=== PATIENT | female | born 1935 | race Caucasian/White ===

== ENCOUNTER 2016-11-19 08:14 | Outpatient (CLI) | payer BC ==
[2016-11-19 13:14] LABS: BASOPHILS # (AUTO) 0.1 10^3/uL (0.0-0.1); EOSINOPHILS % (AUTO) 0.4 %; HCT - HEMATOCRIT 44.1 % (37.0-47.0); HGB - HEMOGLOBIN 14.8 g/dL (12.0-16.0); LYMPHOCYTES # (AUTO) 0.9 10^3/uL (1.5-3.5); MEAN CORPUSCULAR HEMOGLOBIN 31.6 pg (27.0-31.0); MEAN CORPUSCULAR HGB CONC 33.5 g/dL (32.0-36.0); MEAN CORPUSCULAR VOLUME 94.2 fL (81.0-99.0); MEAN PLATELET VOLUME 10.4 fL (7.9-10.8); MONOCYTES # (AUTO) 0.4 10^3/uL (0.0-1.0); MONOCYTES % (AUTO) 7.4 %; NEUTROPHILS # (AUTO) 4.3 10^3/uL (1.5-6.6); NEUTROPHILS % (AUTO) 75.2 %; NUCLEATED RED BLOOD CELLS AUTO 0.3 /100WBC; RED BLOOD COUNT 4.68 10^6/uL (4.20-5.40); RED CELL DISTRIBUTION WIDTH 13.8 % (12.0-15.0); UNCORRECTED WHITE BLOOD COUNT 5.7 x10^3/uL; WHITE BLOOD COUNT 5.7 x10^3/uL (4.8-10.8)
[2016-11-19 13:27] LABS: ALBUMIN/GLOBULIN RATIO 1.5 (1.0-2.2); BILIRUBIN,TOTAL 0.7 mg/dL (0.2-1.0); BUN - BLOOD UREA NITROGEN 11 mg/dL (6-20); CALCIUM 9.8 mg/dL (8.5-10.3); CARBON DIOXIDE - CO2 30 mmol/L (21-32); CHLORIDE 94 mmol/L (101-111); CHOL/HDL RATIO 2.3 (<4.4); CHOLESTEROL 123 mg/dL; CREATININE 0.6 mg/dL (0.4-1.0); GFR - MDRD 95 (>89); GLUCOSE 92 mg/dL (70-100); HDL CHOLESTEROL 54 mg/dL; LDL/HDL RATIO 1.1 (<4.4); POTASSIUM 3.4 mmol/L (3.5-5.0); SODIUM 133 mmol/L (135-145); TOTAL PROTEIN 7.3 g/dL (6.7-8.2); TRIGLYCERIDES 45 mg/dL; VLDL CHOLESTEROL 9 mg/dL
== END 2016-11-19 08:15 | disposition home or self-care (01) ==
LOC: LAB.WCP 08:14
PROVIDERS: ATTEND Physician Assistant Medical
DX: E78.5 Hyperlipidemia, unspecified (principal); I48.91 Unspecified atrial fibrillation; E03.9 Hypothyroidism, unspecified
CPT/HCPCS: 36415; 80053; 80061; 84443; 85025

== ENCOUNTER 2016-11-20 13:26 | Outpatient (CLI) | payer BC ==
--- NOTE | 2016-11-25 17:28 | Mammography Report ---
DIGITAL SCREENING MAMMOGRAM: 11/20/2016 CLINICAL INDICATION: An 81-year-old nulliparous patient for screening. COMPARISON: 05/2015, 04/2014, 12/2010, 11/2009 TECHNIQUE: Routine CC and MLO projections were obtained of the breasts as well as bilateral laterall y exaggerated craniocaudal views. FINDINGS: The breasts again demonstrate heterogeneously dense fibroglandular parenchyma bilaterally. Coarse and punctate, typically benign calcifications are present. No suspicious masses, clustered microcalcifications, or regions of architectural distortion are identified. IMPRESSION: BENIGN FINDINGS. RECOMMENDATION: Routine annual screening unless otherwise clinically indicated. BIRADS CATEGORY 2 - BENIGN FINDINGS. STANDARD QUALIFYING STATEMENTS 1. This examination was reviewed with the aid of Computer-Aided Detection (CAD). 2. A negative or benign imaging report should not delay biopsy if clinically suspicious findings are present. Consider surgical consultation if warranted. More than 5% of cancers are not identified by i maging. 3. Dense breasts may obscure an underlying neoplasm. JOB #: [id number] EXT JOB #:[id number]
== END 2016-11-20 13:27 | disposition home or self-care (01) ==
LOC: DI.N 13:26
PROVIDERS: ATTEND Physician Assistant Medical
DX: Z12.31 Encounter for screening mammogram for malignant neoplasm of breast (principal)
CPT/HCPCS: 77067

== ENCOUNTER 2017-11-19 08:00 | Outpatient (CLI) | payer SELFPAY ==
[2017-11-19 13:22] LABS: BASOPHILS % (AUTO) 0.9 %; EOSINOPHILS % (AUTO) 1.6 %; HGB - HEMOGLOBIN 14.9 g/dL (12.0-16.0); LYMPHOCYTES # (AUTO) 1.1 10^3/uL (1.5-3.5); LYMPHOCYTES % (AUTO) 22.4 %; MEAN CORPUSCULAR HEMOGLOBIN 32.1 pg (27.0-31.0); MEAN CORPUSCULAR HGB CONC 34.4 g/dL (32.0-36.0); MEAN CORPUSCULAR VOLUME 93.3 fL (81.0-99.0); MEAN PLATELET VOLUME 10.8 fL (7.9-10.8); MONOCYTES # (AUTO) 0.4 10^3/uL (0.0-1.0); MONOCYTES % (AUTO) 7.6 %; NEUTROPHILS # (AUTO) 3.3 10^3/uL (1.5-6.6); NEUTROPHILS % (AUTO) 67.5 %; PLT - PLATELET COUNT 172 10^3/uL (130-450); RED BLOOD COUNT 4.63 10^6/uL (4.20-5.40); RED CELL DISTRIBUTION WIDTH 14.3 % (12.0-15.0); WHITE BLOOD COUNT 4.9 x10^3/uL (4.8-10.8)
[2017-11-19 13:23] LABS: EOSINOPHILS # (AUTO) 0.1 10^3/uL (0.0-0.7)
[2017-11-19 13:31] LABS: ALBUMIN 4.4 g/dL (3.2-5.5); ALBUMIN/GLOBULIN RATIO 1.4 (1.0-2.2); ALKALINE PHOSPHATASE 66 IU/L (42-121); ALT ALANINE AMINOTRANSFERASE 16 IU/L (10-60); AST ASPARTATE AMINOTRANSFERASE 23 IU/L (10-42); BILIRUBIN,TOTAL 1.5 mg/dL (0.2-1.0); BUN - BLOOD UREA NITROGEN 10 mg/dL (6-20); CALCIUM 10.1 mg/dL (8.5-10.3); CARBON DIOXIDE - CO2 33 mmol/L (21-32); CHLORIDE 91 mmol/L (101-111); CHOL/HDL RATIO 1.9 (<4.4); CHOLESTEROL 126 mg/dL; CREATININE 0.6 mg/dL (0.4-1.0); GFR - MDRD 95 (>89); GLUCOSE 97 mg/dL (70-100); HDL CHOLESTEROL 65 mg/dL; LDL CHOLESTEROL,CALCULATED 52 mg/dL; LDL/HDL RATIO 0.8 (<4.4); SODIUM 132 mmol/L (135-145); TOTAL PROTEIN 7.6 g/dL (6.7-8.2); VLDL CHOLESTEROL 9 mg/dL
[2017-11-19 13:33] LABS: PLATELET MORPHOLOGY RARE GIANT PLATELETS (NORMAL)
== END 2017-11-19 08:01 | disposition home or self-care (01) ==
LOC: LAB.WCP 08:00
PROVIDERS: ATTEND Physician Assistant Medical
DX: I10 Essential (primary) hypertension (principal); E78.5 Hyperlipidemia, unspecified; E03.9 Hypothyroidism, unspecified
CPT/HCPCS: 36415; 80053; 80061; 83721; 84443; 85025

== ENCOUNTER 2017-11-26 14:30 | Outpatient (CLI) | payer OTHER | END 2017-11-26 14:31 | disposition home or self-care (01) | LOC: LAB.R 14:30 | PROVIDERS: ATTEND Physician Assistant Medical | DX: N39.41 Urge incontinence (principal) | CPT/HCPCS: 87086 ==

== ENCOUNTER 2017-12-02 14:27 | Outpatient (CLI) | payer OTHER ==
--- NOTE | 2017-12-03 17:24 | Mammography Report ---
Procedure Date: 12/02/2017 Accession Number: [id number] / [id number] Procedure: MGN - Screening Mammo Dig Bilat CPT Code: FULL RESULT: EXAM: Screening Mammo Dig Bilat DATE: 12/02/2017 2:56 PM CLINICAL HISTORY: 82 year-old nulliparous female presents for screening mammogram. TECHNIQUE: Bilateral CC and MLO views were obtained. COMPARISON: 11/20/2016, 05/29/2015, 05/02/2014, 01/01/2011. FINDINGS: The breasts demonstrate extremely dense parenchyma bilaterally, limiting the sensitivity of mammography. Coarse typically benign calcifications and typically benign vascular calcifications are seen bilaterally. No suspicious masses, clustered microcalcifications, or regions of architectural distortion are identified. IMPRESSION: Benign findings RECOMMENDATION: Routine annual screening unless otherwise clinically indicated. BIRADS CATEGORY 2: Benign findings STANDARD QUALIFYING STATEMENTS: 1. This examination was reviewed with the aid of Computer-Aided Detection (CAD). 2. A negative or benign imaging report should not delay biopsy if clinically suspicious findings are present. Consider surgical consultation if warrented. More than 5% of cancers are not identified by imaging. 3. Dense breasts may obscure an underlying neoplasm.
== END 2017-12-02 14:28 | disposition home or self-care (01) ==
LOC: DI.N 14:27
PROVIDERS: ATTEND Radiology Diagnostic Radiology
DX: Z12.31 Encounter for screening mammogram for malignant neoplasm of breast (principal)
CPT/HCPCS: 77067

== ENCOUNTER 2018-06-09 09:31 | Outpatient (CLI) | payer OTHER ==
--- NOTE | 2018-06-09 13:25 | XRAY Report ---
Reason: ADB DISCOMFORT Procedure Date: 06/09/2018 Accession Number: [id number] / [id number] Procedure: WCP - Abdomen 1 View X-Ray CPT Code: 77753 FULL RESULT: EXAM: ABDOMEN RADIOGRAPHY EXAM DATE: 06/09/2018 09:58 AM. CLINICAL HISTORY: Abdominal discomfort. COMPARISON: None. TECHNIQUE: 1 view. FINDINGS: Bowel Gas Pattern: Within normal limits. No dilated loops. Other: Calcifications projecting over the pelvis are felt to likely represent fibroids. Mild to moderate thoracolumbar scoliosis with degenerative changes. IMPRESSION: No bowel obstruction or extraintestinal gas detected. RADIA
== END 2018-06-09 09:32 | disposition home or self-care (01) ==
LOC: DI.WCP 09:31
PROVIDERS: ATTEND Physician Assistant
DX: R10.9 Unspecified abdominal pain (principal)
CPT/HCPCS: 74018

== ENCOUNTER 2018-06-10 08:00 | Outpatient (CLI) | payer OTHER | END 2018-06-10 23:59 | disposition home or self-care (01) | LOC: LAB.WCP 08:00 | PROVIDERS: ATTEND Physician Assistant | DX: R19.7 Diarrhea, unspecified (principal) | CPT/HCPCS: 81599; 83630; 87045; 87046; 87177; 87209; 87329; 87493 ==

== ENCOUNTER 2018-12-24 10:12 | Outpatient (CLI) | payer OTHER ==
--- NOTE | 2018-12-27 15:53 | Mammography Report ---
Reason: SCREENING MAMMO Procedure Date: 12/24/2018 Accession Number: [id number] / [id number] Procedure: MGN - Screening Mammo Dig Bilat CPT Code: FULL RESULT: EXAM: Screening Mammo Dig Bilat DATE: 12/24/2018 10:36 AM CLINICAL HISTORY: Routine screening. Nulliparous patient. TECHNIQUE: (B) - Bilateral CC and MLO views were obtained. COMPARISON: 12/02/2017, 11/20/2016, 05/29/2015 and 05/02/2014 PARENCHYMAL PATTERN: (VD) - The breasts demonstrate extremely dense parenchyma bilaterally, limiting the sensitivity of mammography. FINDINGS: No significant interval change. There are no suspicious masses, calcifications, or areas of distortion. Scattered benign-appearing calcifications are stable. IMPRESSION: Negative examination. BI-RADS category 1. RECOMMENDATION: (ANNUAL) - Recommend routine annual screening mammography. BI-RADS CATEGORY: (1) - Negative. STANDARD QUALIFYING STATEMENTS: 1. This examination was not reviewed with the aid of Computer-Aided Detection (CAD). 2. A negative or benign imaging report should not preclude biopsy if clinically suspicious findings are present. 3. Dense breasts may obscure an underlying neoplasm. 4. This examination was reviewed without the aid of 3D breast imaging (tomosynthesis).
== END 2018-12-24 10:13 | disposition home or self-care (01) ==
LOC: DI.N 10:12
DX: Z12.31 Encounter for screening mammogram for malignant neoplasm of breast (principal)
CPT/HCPCS: 77067

== ENCOUNTER 2019-10-02 06:02 | Outpatient (CLI) | payer OTHER | END 2019-10-02 06:03 | disposition critical access hospital (66) | LOC: EMS 06:02 | PROVIDERS: ATTEND Surgery | DX: R19.5 Other fecal abnormalities (principal); R10.9 Unspecified abdominal pain; R11.0 Nausea | CPT/HCPCS: A0425; A0427 ==

== ENCOUNTER 2019-10-02 06:19 | Inpatient (IN) | payer OTHER ==
[2019-10-02 07:08] LABS: BASOPHILS % (AUTO) 0.4 %; EOSINOPHILS # (AUTO) 0.1 10^3/uL (0.0-0.7); EOSINOPHILS % (AUTO) 0.8 %; HGB - HEMOGLOBIN 13.5 g/dL (12.0-16.0); LYMPHOCYTES # (AUTO) 0.9 10^3/uL (1.5-3.5); LYMPHOCYTES % (AUTO) 12.1 %; MEAN CORPUSCULAR HGB CONC 33.3 g/dL (32.0-36.0); MEAN CORPUSCULAR VOLUME 93.1 fL (81.0-99.0); MEAN PLATELET VOLUME 11.1 fL (7.9-10.8); MONOCYTES # (AUTO) 0.5 10^3/uL (0.0-1.0); MONOCYTES % (AUTO) 6.3 %; NEUTROPHILS # (AUTO) 5.9 10^3/uL (1.5-6.6); NEUTROPHILS % (AUTO) 80.1 %; PLT - PLATELET COUNT 189 10^3/uL (130-450); RED BLOOD COUNT 4.36 10^6/uL (4.20-5.40); RED CELL DISTRIBUTION WIDTH 13.8 % (12.0-15.0); WHITE BLOOD COUNT 7.3 x10^3/uL (4.8-10.8)
--- NOTE | 2019-10-02 07:10 | ED Physician Documentation ---
PD HPI GI BLEED - Stated complaint Stated Complaint: BLOODY STOOL - Chief complaint Chief Complaint: Abd Pain - History obtained from History obtained from: Patient - History of Present Illness Timing - onset: How many hours ago (1-2), Today Timing - details: Abrupt onset (She felt a sudden urge for bowel movement earlier this morning got up and noted red blood in the toilet. There was some stool formed initially. She had another movement of just blood shortly after. She has a feeling of general weakness but no lightheadedness and no dyspnea. She said she felt a little weak yesterday but otherwise no abdominal pain nausea or vomiting. She has some mild nausea this morning. No history of similar episodes. No history of diverticulitis. She is not on any blood thinners) Associated symptoms: BRBPR, Maroon stool, Loss of appetite. No: Vomiting, Coffee ground emesis, Black/tarry stool, Constipation, Abdominal pain, Chest pain, Near syncope / syncope Contributing factors: No: Sick contact, Recent antibiotics, Anticoagulated Worsened by: No: Moving, Breathing, Palpation Similar symptoms before: Has not had sx before Recently seen: Not recently seen Review of Systems Constitutional: denies: Fever, Chills, Myalgias Nose: denies: Rhinorrhea / runny nose, Congestion Throat: denies: Sore throat Cardiac: denies: Chest pain / pressure Respiratory: denies: Cough GI: reports: Nausea, Bloody / black stool. denies: Abdominal Pain, Abdominal Swelling, Vomiting, Hematemesis : denies: Dysuria, Frequency Neurologic: reports: Generalized weakness. denies: Focal weakness, Numbness, Near syncope PD PAST MEDICAL HISTORY - Past Medical History Respiratory: None Neuro: None Endocrine/Autoimmune: None - Present Medications Home Medications: Ambulatory Orders Medication Instructions Recorded Confirmed Amlodipine Besylate 5 mg PO DAILY 11/17/15 10/02/19 Aspirin 325 mg PO DAILY 11/17/15 10/02/19 Calcium Carbonate [Calcium] 600 mg PO DAILY 10/02/19 10/02/19 Donepezil [Aricept] 5 mg PO DAILY 10/02/19 10/02/19 Lisinopril/Hydrochlorothiazide 2 each PO DAILY 10/02/19 10/02/19 [Lisinopril-Hctz 20-25 mg Tab] Oxybutynin [Ditropan] 5 mg PO DAILY 10/02/19 10/02/19 Pravastatin [Pravachol] 40 mg PO DAILY 10/02/19 10/02/19 - Allergies Allergies/Adverse Reactions: Allergies Allergy/AdvReac Type Severity Reaction Status Date / Time Sulfa (Sulfonamide AdvReac Unknown Verified 11/17/15 16:42 Antibiotics) - Social History Does the pt smoke?: No Smoking Status: Never smoker PD ED PE NORMAL - Vitals Vital signs reviewed: Yes - General General: Alert and oriented X 3, Well developed/nourished, Other (mild pallor) - HEENT HEENT: Moist mucous membranes, Pharynx benign - Neck Neck: Supple, no meningeal sign, No adenopathy - Cardiac Cardiac: RRR, No murmur - Respiratory Respiratory: Clear bilaterally - Abdomen Abdomen: Normal bowel sounds, Soft, Non distended, No organomegaly, Other (Mild tenderness in the lower abdomen both left and right without any percussion rebound nor referred tenderness. No guarding is noted.) - Rectal Rectal: Deferred (She had lower rectal output of maroon to red blood without clots here in the emergency department so rectal was not needed) - Back Back: No CVA TTP - Derm Derm: Warm and dry - Extremities Extremities: Normal ROM s pain, No edema - Neuro Neuro: Alert and oriented X 3, No motor deficit, Normal speech Results - Vitals Vitals: Vital Signs - 24 hr 10/02/19 06:10 Temperature 36.5 C Heart Rate 64 Respiratory 16 Rate Blood Pressure 169/78 H O2 Saturation 94 Oxygen O2 Source Room air - Labs Labs: Laboratory Tests 10/02/19 10/02/19 10/02/19 06:55 06:55 06:55 WBC 7.3 RBC 4.36 Hgb 13.5 Hct 40.6 MCV 93.1 MCH 31.0 MCHC 33.3 RDW 13.8 Plt Count 189 MPV 11.1 H Neut # (Auto) 5.9 Lymph # (Auto) 0.9 L [place] # (Auto) 0.5 Eos # (Auto) 0.1 Baso # (Auto) 0.0 Absolute Nucleated RBC 0.00 Nucleated RBC % 0.0 PT 13.0 H INR 1.1 APTT 28.5 Sodium 132 L Potassium 2.7 L Chloride 90 L Carbon Dioxide 29 Anion Gap 13.0 BUN 13 Creatinine 0.6 Estimated GFR (MDRD) 95 Glucose 128 H Calcium 9.5 Total Bilirubin 0.9 AST 18 ALT 13 Alkaline Phosphatase 61 Total Protein 6.9 Albumin 4.2 Globulin 2.7 Albumin/Globulin Ratio 1.6 Lipase 27 - Rads (name of study) abd/pelvic CT Radiology: Prelim report reviewed (Diverticula are noted but no obvious diverticulitis or other acute process), See rad report PD MEDICAL DECISION MAKING - ED course Complexity details: reviewed results, re-evaluated patient (Repeated episodes of small-volume rectal bleeding here in the ER. Vitals remained stable.), d/w patient Departure - Departure Disposition: 66 [facility] DC/Xfer Clinical Impression: Acute lower GI bleeding Condition: Stable
[2019-10-02 07:18] LABS: INR 1.1 (0.8-1.2)
[2019-10-02] MEDS ORDERED: SODIUM CHLORIDE 0.9% 1,000 ML IV STA (07:25)
[2019-10-02 07:26] LABS: PARTIAL THROMBOPLASTIN TIME 28.5 secs (24.9-33.3)
[2019-10-02] MEDS ORDERED: FAMOTIDINE 20 MG/2 ML SYRINGE IVP STA (07:26)
[2019-10-02 07:36] LABS: ALBUMIN 4.2 g/dL (3.2-5.5); ALBUMIN/GLOBULIN RATIO 1.6 (1.0-2.2); BILIRUBIN,TOTAL 0.9 mg/dL (0.2-1.0); CALCIUM 9.5 mg/dL (8.5-10.3); CREATININE 0.6 mg/dL (0.4-1.0); TOTAL PROTEIN 6.9 g/dL (6.7-8.2)
[2019-10-02] MEDS ORDERED: IOVERSOL 320 100 ML VIAL IVP ONE ×2 (07:54→08:43)
[2019-10-02] MEDS ORDERED: POTASSIUM CHLOR 10 MEQ/100 ML 10 MEQ/100 ML BAG IV ONE (07:59)
--- NOTE | 2019-10-02 09:01 | CT Report ---
PROCEDURE: Abdomen/Pelvis W INDICATIONS: GI bleeding CONTRAST: IV CONTRAST: Optiray 320 ml: 100 PO CONTRAST: *NO PO CONTRAST TECHNIQUE: After the administration of oral and intravenous contrast, 5 mm thick sections acquired from the diap hragms to the symphysis. 5 mm thick coronal and sagittal reformats were acquired. For radiation dos e reduction, the following was used: automated exposure control, adjustment of mA and/or kV accordin g to patient size. COMPARISON: None. FINDINGS: Image quality: Excellent. ABDOMEN: Lung bases: Within the right lower lobe medially, there is a spiculated nodule seen that measures up to 12 mm, as on series 4 image 8. Heart size is mildly enlarged. Solid organs: Liver and spleen are normal in size and enhancement. Diffuse fatty liver infiltration can be seen. Gallbladder demonstrates gallstones within its lumen. Biliary system is mildly enlarg ed, with the common bile duct measuring 9 mm.. Pancreas enhances normally. No adrenal nodules. Kid neys demonstrate normal size and enhancement, without hydronephrosis. Peritoneum and bowel: Bowel loops demonstrate normal wall thickness and caliber. No free fluid or a ir. Prominent diverticulosis is seen. No findings of acute diverticulitis are detected. Nodes and vessels: Enlarged retroperitoneal lymph nodes are seen. The largest are seen within the lef t para-aortic region, with the largest solitary lymph node measuring 2.5 x 1.3 cm. Borderline promine nt mesenteric lymph nodes are also seen. Aorta and inferior vena cava are normal in size. Miscellaneous: No ventral hernias. PELVIS: Genitourinary: Bladder wall thickness is normal. Calcified uterine fibroids are seen. Miscellaneous: No inguinal hernias or adenopathy. Bones: No suspicious bony lesions. There is moderate levoconvex scoliosis. There is chronic anterio r wedge deformity seen at T12. Degenerative changes are seen throughout, which are most prominent inv olving the lumbar spine. IMPRESSION: A cause of lower GI bleeding is not identified. However, prominent diverticular formatio n is noted. Spiculated right lower lobe nodule. Neoplasm is suspected. For further evaluation, a dedicated PET CT is recommended. Enlarged retroperitoneal lymph nodes and borderline mesenteric lymph nodes are seen. Neoplasm is most likely. Prominent common bile duct measuring 9 mm. A cause of obstruction is not seen on this study. If clini florencia appropriate, please consider a dedicated MRCP for further evaluation (assuming that there is no contraindication). Incidental note is made of: Gallstones Fatty liver infiltration Calcified uterine fibroids Levoconvex scoliosis Remote T12 anterior wedge deformity Lumbar spine degenerative change Reviewed by: Clarence Do MD on 10/02/2019 8:00 AM PENG Approved by: Clarence Do MD on 10/02/2019 8:00 AM PENG Station ID: [id number]
[2019-10-02] MEDS ORDERED: ACETAMINOPHEN 325 MG TABLET PO PRN (11:05)
--- NOTE | 2019-10-02 11:30 | PHARMACY PROGRESS NOTE ---
- Best Possible Medication History Admit Date and Time: 10/02/1989 Processed by: Pharmacy Medication History completed: Yes Secondary Source(s): Physician records, Pharmacy records, Insurance records As the person ultimately responsible for medication therapy, providers are able to order a medication from an existing home medication list in [facility] via the "Reconcile Routine" prior to Confirmation of that medication by family support coordinator. Such practice is discouraged except when the physician, in their clinical judgment, deems that a medical need exists for a medication without regard to previous use.
--- NOTE | 2019-10-02 12:19 | CONSULTATION NOTE ---
Referring Provider Name of Referring Provider:: ED History of Present Illness - Admitted From Admitted From:: ED - History Obtained From Records Reviewed: ED History obtained from: ED and patient Exam Limitations: none - History of Present Illness HPI Comment/Other: 84 year old lady admitted with lower gi bleed. Ct scan has been obtained. she is stable, no distress, ambulates without difficulty, no pain History - Past Medical History Cardiovascular: reports: Hypertension, High cholesterol, Coronary artery disease Respiratory: reports: None Neuro: reports: None Endocrine/Autoimmune: reports: None GI: reports: GI bleed, Colon polyps, Diverticulitis : reports: None HEENT: reports: Chronic vision loss Psych: reports: None Musculoskeletal: reports: Osteoporosis Derm: reports: None MRSA Hx?: No - Past Surgical History General: reports: Appendectomy Ortho: reports: Arthroscopic surgery HEENT: reports: Tonsil/Adenoidectomy Meds/Allgy - Home Medications Home Medications: Ambulatory Orders Medication Instructions Recorded Confirmed Amlodipine Besylate 5 mg PO DAILY 11/17/15 10/02/19 Aspirin EC [Ecotrin] 325 mg PO DAILY 10/02/19 10/02/19 Calcium Carbonate [Calcium] 600 mg PO DAILY 10/02/19 10/02/19 Donepezil [Aricept] 5 mg PO QPM 10/02/19 10/02/19 Lisinopril/Hydrochlorothiazide 2 each PO DAILY 10/02/19 10/02/19 [Lisinopril-Hctz 20-12.5 mg Tab] Oxybutynin [Ditropan] 5 mg PO QPM 10/02/19 10/02/19 Pravastatin [Pravachol] 40 mg PO DAILY 10/02/19 10/02/19 - Allergies Allergies/Adverse Reactions: Allergies Allergy/AdvReac Type Severity Reaction Status Date / Time Sulfa (Sulfonamide AdvReac Unknown Verified 11/17/15 16:42 Antibiotics) Review of Systems - Constitutional Constitutional: reports: Fatigue (she states she is tired. No other complaints.) Exam - Vital Signs Vital Signs: Vital Signs x48h Temp Pulse Resp BP Pulse Ox 10/02/19 08:32 66 16 170/74 H 96 10/02/19 06:10 36.5 C 64 16 169/78 H 94 - Physical Exam General Appearance: positive: No acute distress, Alert Eyes Bilateral: positive: Normal inspection, PERRL, EOMI ENT: positive: No signs of dehydration Neck: positive: No JVD Respiratory: positive: No respiratory distress Abdomen: positive: Non-tender, Other (no significant distension. abdomen is very soft and non tender to deep palpation. no peritoneal signs. transverse scar right lower abdomen consistent with past appendectomy) Extremities: positive: No pedal edema Neurologic/Psychiatric: positive: Other (history of dementia ; however, she is alert and answers questions appropriately. unknown if she has had a colonoscopy) Conclusion and Plan - Lab Results Laboratory Results 10/02/19 06:55: Sodium 132 L, Potassium 2.7 L, Chloride 90 L, Carbon Dioxide 29, Anion Gap 13.0, BUN 13, Creatinine 0.6, Estimated GFR (MDRD) 95, Glucose 128 H, Calcium 9.5, Total Bilirubin 0.9, AST 18, ALT 13, Alkaline Phosphatase 61, Total Protein 6.9, Albumin 4.2, Globulin 2.7, Albumin/Globulin Ratio 1.6, Lipase 27 10/02/19 06:55: PT 13.0 H, INR 1.1, APTT 28.5 10/02/19 06:55: WBC 7.3, RBC 4.36, Hgb 13.5, Hct 40.6, MCV 93.1, MCH 31.0, MCHC 33.3, RDW 13.8, Plt Count 189, MPV 11.1 H, Neut # (Auto) 5.9, Lymph # (Auto) 0.9 L, [place] # (Auto) 0.5, Eos # (Auto) 0.1, Baso # (Auto) 0.0, Absolute Nucleated RBC 0.00, Nucleated RBC % 0.0 - Diagnostic Imaging Results Diagnostic Imaging Results: positive: Final report reviewed, Read independently (she has had a ct concerning for right lower lobe lung cancer. She has enlarged retroperitoneal adenopathy concerning for neoplasia. she has significant diverticulosis descending colon. no inflammation on my read she may have a partial sigmoid volvulus with no inflammation and minimal distension) - Plan Plan: She is stable. Has no pain. Abdominal exam is essentially normal. minimal to no distension and non tender. Agree with clear liquid diet. Consider sigmoidoscopy if she develops pain or distension. I discussed the plan with medicine. The medicine team will contact her family and clarify wishes ie would she want a colectomy, colostomy, etc. Given she does not appear ill, is stable, no pain, possible lung cancer, passing minimal blood plan observation for now ie no further intervention with scope. If she develops pain, distension, consent obtained for possible colostomy will proceed with sigmoidoscopy or colonoscopy. I would hold on bowel prep for now. If she develops pain, bloating, consent obtained for possible colostomy plan sigmoidoscopy
[2019-10-02] MEDS: FAMOTIDINE 20 MG TABLET PO SCH ×2 (12:27→20:14)
--- NOTE | 2019-10-02 13:38 | ADVANCE CARE PLANNING NOTE ---
Advance Care Planning - Planning Encounter Date: 10/02/19 Time: 11:20 Purpose: To establish Code Status and medical care wishes. Parties in Attendance: I spoke to the patient in her room. I then spoke to her pkzkch-ne-fyr, Bebe (Parris), at the patient's request, by phone. Decisional Capacity of the Patient: She appears to have good decision-making capacity, she needed to repeat several things to memorize the new diagnoses I gave her, but was able to discuss her old history and prior thought processes regarding CODE STATUS and medical care. She also asked me to confirm if she has documents regarding a POA, living well, or DNR paperwork, with her [id number] Parris, which I did. 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 She lives alone in assisted living facility and her brother and djjnyn-kn-sxc live in the same town. She administers her own medications, has stopped driving several years ago. She is admitted with lower abdominal pain and maroon bloody bowel movements. The work-up reveals that she has diverticuli, and also has a mass in her lungs. Objective/Medical Story: This is an 84-year-old white female with hypertension, dementia, on treatment plus aspirin daily. She was admitted with new onset of lower abdominal pain and lower GI bleeding. The CT abdomen reveals that she has diverticuli but no diverticulosis. The rn medical surgical think she may have a volvulus therefore possibly bleeding from ischemic bowel. The lower chest was also seen on abdominal CT imaging and she has a spiculated lung mass and has many retroperitoneal nodes in the abdomen, both suggestive of malignancy. I told the patient about the diverticulosis, plan for monitoring, liquid diet, and lung tumor findings. When asked about cardiac resuscitation, the patient immediately stated that she did not want to be resuscitated or measures taken to prolong her life. Patient accepted the proposal of having a palliative care consult done regarding newly diagnosed lung tumor. Patient would like to think about what she would want done if there is in fact lung cancer and if she needs aggressive treatment like chemo or radiation therapy. If surgery is needed, the surgeon told me that he would like discussion with family members (in case of her dementia), because of the newly found probable lung cancer with mets. I then spoke to her hoqpfr-gr-hpy Parris, who told me that there is no paperwork for DPOA, a living well or CODE STATUS papers. I told the [id number] about the lower GI bleed and the newly found lung tumor. Parris confirmed that the patient has told them she wants to be a DNR. I explained that a palliative home care companion will start to be involved with the patient case, starting tomorrow. Goals of Care: As above. Plan: A new POLST form will be signed by the patient and myself. DNR status will be ordered in the chart. Palliative care consult will be requested. Code Status: Do Not Attempt Resuscitation Time spent on advance care plannin min
[2019-10-02 14:21] LABS: HGB - HEMOGLOBIN 11.7 g/dL (12.0-16.0)
[2019-10-02 14:32] LABS: MAGNESIUM 1.9 mg/dL (1.7-2.8)
--- NOTE | 2019-10-02 15:34 | HISTORY & PHYSICAL EXAMINATION ---
DATE OF SERVICE: 10/02/2019 Physician: Deanna Mata MD HISTORY OF PRESENT ILLNESS: This is an 84-year-old white female who lives alone in Assisted living, has a history of hypertension and dementia, is on Donepizil, blood pressure medications and aspirin daily. The patient felt weak yesterday and then this morning had nausea, but no vomiting, and when she went to the bathroom she had first a normal bowel movement, followed by bright red blood and maroon blood per rectum. She came to the emergency room for this and in the ER had 2-3 more bowel movements of a cup in volume, of red-maroon stool. The patient had normal blood pressure and normal hemoglobin. She is being placed in Observation to evaluate and manage lower GI bleeding. PAST MEDICAL HISTORY: Hypertension, dementia. ALLERGIES: SULFA. MEDICATIONS: 1. Amlodipine 10 mg daily. 2. Lisinopril/HCTZ 20/12.5 mg daily. 3. Aspirin adult dose daily. 4. Calcium carbonate daily. 5. Pravastatin 40 mg at night. 6. Donepizil 5 mg every night. 7. Ditropan XL 5 mg every night. FAMILY HISTORY: No inherited diseases. SOCIAL HISTORY: The patient lives alone. Her closest relative is a brother and [id number], who live also in town. She is a nonsmoker, drinks no alcohol, no drug abuse history. REVIEW OF SYSTEMS: She denied dizziness or syncope. Denied palpitations or chest pain or dyspnea. This has never happened to her before. There was no vomiting, no coffee-ground emesis. A comprehensive review of systems was performed and the pertinent positives are listed, the rest are negative. PHYSICAL EXAMINATION GENERAL: Elderly white female. She appears fatigued. She is in no distress, supine in bed. VITAL SIGNS: Blood pressure 170/78, heart rate 65 in sinus rhythm, afebrile, room air saturation 95%. HEENT: Shows skin pallor. Oral mucosa is moist. NECK: Supple. CHEST: Clear. HEART: Normal heart sounds. ABDOMEN: Soft, mildly tender in the right and lower left quadrants without guarding or rebound. No masses are palpable. EXTREMITIES: No clubbing, cyanosis, or edema. NEUROLOGIC: Grossly intact. LABORATORY DATA: Sodium 132, potassium 2.7, BUN 13, creatinine 0.6, glucose 128. Normal liver tests and bilirubin. Albumin normal at 4.2. Lipase normal at 27. White blood count 7.3, hemoglobin 13.5 with a normal MCV, and platelet count normal at 189. INR normal at 1.1. No chest x-ray or EKG were done. IMAGING: Abdomen and pelvis CT shows colonic diverticula, but no diverticulitis. Also, significant incidental findings are enlarged retroperitoneal lymph nodes, largest in the left paraaortic region, one being as large as 2.5 x 1.3 cm, and prominent mesenteric lymph nodes and these are suspicious for malignancy. She also has fatty liver infiltration, gallstones with mildly enlarged biliary system. The lung bases were seen, and there was a right lower lobe spiculated nodule that measures 12 mm, which is suspicious for malignancy. Cardiomegaly was also seen. SUMMARY/DIAGNOSES 1. Lower gastrointestinal bleed. 2. Diverticulosis. 3. Hypokalemia. 4. Spiculated lung mass, which is highly suspicious for neoplasm. 5. Cardiomegaly. 6. Lymphadenopathy, retroperitoneal, which is highly suspicious for neoplasm. 7. History of hypertension. 8. Dementia. 9. Fatty liver. 10. Gallstones. PLAN: Place the patient in observation status. Begin a clear liquid diet. Obtain general surgery consultation for a colonoscopy. If she agrees and the procedure is planned, she will need a preop EKG and chest x-ray for being cleared for conscious sedation. Follow her hemoglobin every 8 hours, transfuse if she is symptomatic such as orthostatic or if hemoglobin drops under 7. Correct her potassium and follow these labs every 12 hours. Hold her blood pressure medications currently, restart individually if she becomes hypertensive over a systolic of 170 sustained, but I suspect she will not need such high doses given her GI bleed with a potential drop in blood pressure. Continue with her Donepizil and Oxybutynin. There will need to be discussion about a potential malignancy and options regarding its workup. This will lead to discussions about her wishes for care plan and code status. Stop her daily aspirin. DEEP VENOUS THROMBOSIS PROPHYLAXIS: SCDs. CODE STATUS: FULL CODE. ATTESTATION: The patient is expected to be discharged or transferred to another facility within 96 hours: Yes cc: Lashonda Rudolph PA-C TD: 10/02/2019 11:22 [facility]
[2019-10-02] MEDS: SODIUM CHLORIDE FLUSH 0.9% 10 ML SYRINGE IVP SCH ×2 (16:49→23:51)
[2019-10-02 17:31] LABS: BILIRUBIN,URINE NEGATIVE (NEGATIVE); GLUCOSE, URINE (UA) NEGATIVE (NEGATIVE); KETONES,URINE (UA) TRACE mg/dL (NEGATIVE); LEUKOCYTE ESTERASE, URINE NEGATIVE (NEGATIVE); NITRITE,URINE NEGATIVE (NEGATIVE); OCCULT BLOOD,URINE SMALL (NEGATIVE); PROTEIN,URINE NEGATIVE (NEGATIVE); UROBILINOGEN,URINE 0.2 (NORMAL) E.U./dL (NORMAL)
[2019-10-02 17:33] LABS: CLARITY,URINE CLEAR (CLEAR)
[2019-10-02 17:44] LABS: BACTERIA,URINE None Seen /HPF (None Seen); RBC,URINE 0-5 /HPF (0-5); SQUAMOUS EPITHELIAL CELL,UR NONE SEEN (<= Few)
[2019-10-02] MEDS: OXYBUTYNIN 5MG TABLET PO SCH (20:14)
[2019-10-02] MEDS: CARBOXYMETHYLCELLULOSE OPHTH DROPS EACHEYE PRN (23:50)
[2019-10-03] MEDS: SODIUM CHLORIDE FLUSH 0.9% 10 ML SYRINGE IVP PRN (00:01)
[2019-10-03 05:29] LABS: HGB - HEMOGLOBIN 10.1 g/dL (12.0-16.0)
[2019-10-03 05:40] LABS: CALCIUM 8.6 mg/dL (8.5-10.3); CREATININE 0.4 mg/dL (0.4-1.0)
[2019-10-03] MEDS: CARBOXYMETHYLCELLULOSE OPHTH DROPS EACHEYE PRN (05:41)
[2019-10-03] MEDS: POTASSIUM CHLOR 10 MEQ/100 ML 10 MEQ/100 ML BAG IV SCH ×6 (09:13→20:07)
[2019-10-03] MEDS: SODIUM CHLORIDE FLUSH 0.9% 10 ML SYRINGE IVP SCH ×3 (09:17→23:27)
[2019-10-03] MEDS: FAMOTIDINE 20 MG TABLET PO SCH ×2 (09:17→22:05)
[2019-10-03] MEDS: D5NS W/20 MEQ KCL 1,000 ML IV SCH ×2 (11:08→22:07)
[2019-10-03] MEDS: DONEPEZIL 5 MG TABLET PO SCH (11:09)
--- NOTE | 2019-10-03 11:44 | PROVIDER PROGRESS NOTE ---
Assessment/Plan - Problem List (1) Acute lower GI bleeding Assessment/Plan: She has painless lower GI bleeding but there was an urge to defecate. Surgery saw the patient. There has been discussions with new palliative care consult, Sania Chen NP, the surgeon, the family members and the patient several times and she may need surgery for a possible volvulus. (2) Anemia due to GI blood loss Assessment/Plan: Follow hemoglobin every 8 hours. We will order type and cross of PRBCs Its use if Hgb under 8 with symptoms are under 7 (3) Lung mass Assessment/Plan: This came into play in the discussion with palliative care and the family. A primary GI malignancy may have mets to the lungs as well as a primary lung malignancy. (4) Lymphadenopathy, retroperitoneal Assessment/Plan: Similar to above. (5) Hypokalemia Assessment/Plan: Place with IV K riders. Follow BMP daily (6) Hyponatremia Assessment/Plan: Continue with IV saline hydration. Follow BMP daily (7) Hx of essential hypertension Assessment/Plan: Continue with IV forms of treatment for her blood pressure control. (8) Dementia Assessment/Plan: She was on donezepil before this admission. My impression, that of the palliative care provider and the surgeon is that she makes good decisions on her own yet, memory is slightly lacking. - Current Meds Current Meds: Current Medications Generic Name Dose Route Start Last Admin Trade Name Freq PRN Reason Stop Dose Admin Carboxymethylcellulose 1 drops 10/02/19 23:28 10/03/19 05:41 Refresh 1% Ophth Drops EACHEYE 1 drops PRN PRN Administration Dry Eye Donepezil HCl 5 mg 10/03/19 10:30 10/03/19 11:09 Aricept PO 5 mg DAILY TASHIA Administration Famotidine 20 mg 10/02/19 12:00 10/03/19 09:17 Pepcid PO 20 mg BID TASHIA Administration Potassium Chloride 10 meq in 100 mls @ 100 mls/hr 10/03/19 08:00 10/03/19 11:08 Potassium Chloride IV 10/03/19 13:59 100 mls/hr Q1H TASHIA Administration Potassium Chloride/Dextrose/Sod Cl 1,000 mls @ 83.333 mls/hr 10/03/19 10:00 10/03/19 11:08 IV 83.333 mls/hr .Q12H TASHIA Administration Oxybutynin Chloride 5 mg 10/02/19 21:00 10/02/19 20:14 Ditropan PO 5 mg QPM TASHIA Administration Sodium Chloride 10 ml 10/02/19 11:05 10/03/19 00:01 Normal Saline Flush 0.9% IVP 10 ml PRN PRN Administration NEEDED PER PROVIDER ORDERS Sodium Chloride 10 ml 10/02/19 17:00 10/03/19 09:17 Normal Saline Flush 0.9% IVP 10 ml 0100,0900,1700 TASHIA Administration - Lab Result Fish Bone Diagrams: 10/03/19 13:57 10/03/19 05:09 - Additional Planning My Orders: My Active Orders 10/02/19 11:05 Activity Orders [RC] Q2HR IO [RC] IOSHIFT Initiate Bowel Care Protocol [RC] .protocol Initiate Personal Care Protoco [RC] .protocol Oxygen Therapy [RC] .PRN Vital Signs [RC] Q4HR Acetaminophen [Tylenol] 650 mg PO Q4HR PRN Ondansetron Inj [Zofran Inj] 4 mg IVP Q6HR PRN Sodium Chloride Flush 0.9% [Normal Saline Flush 0.9%] 10 ml IVP PRN PRN Code Status [OTHERS] Routine Condition of Patient [OTHERS] Routine DVT Prophylaxis [OTHERS] Routine 10/02/19 11:06 SCDs [RC] QSHIFT 10/02/19 11:07 Initiate Line Care Protocol [RC] QSHIFT 10/02/19 12:00 Famotidine [Pepcid] 20 mg PO BID 10/02/19 17:00 Sodium Chloride Flush 0.9% [Normal Saline Flush 0.9%] 10 ml IVP 0100,0900,1700 10/02/19 21:00 Oxybutynin [Ditropan] 5 mg PO QPM 10/02/19 23:28 Carboxymethylcellulose 1% Opht [Refresh 1% Ophth Drops] 1 drops EACHEYE PRN PRN 10/02/19 Lunch DIET [Clear Liquid Diet] [DIET] 10/03/19 Palliative Care Consult [CONS] Routine 10/03/19 10:00 D5ns W/20 Meq KCl 1,000 ml IV 83.333 mls/hr 10/03/19 10:30 Donepezil [Aricept] 5 mg PO DAILY 10/03/19 14:00 HEMOGLOBIN AND HEMATOCRIT [HEME] Q8H Subjective - Subjective Patient Reports: Other (Minimal pain in abdomen. Decreased BMs overnight but then several and very bloody this morning) Objective Vital Signs: Vital Signs - 24 hr 10/02/19 10/02/19 10/02/19 14:30 16:32 20:48 Temperature 36.9 C 36.5 C 36.7 C Heart Rate [ 66 72 63 Brachial] Respiratory 16 16 18 Rate Blood Pressure 132/64 H 129/70 141/60 H [Right Brachial artery] O2 Saturation 96 94 95 10/02/19 10/03/19 10/03/19 23:42 05:00 09:00 Temperature 36.6 C 36.8 C 36.5 C Heart Rate [ 72 57 L 63 Brachial] Respiratory 20 20 18 Rate Blood Pressure 158/90 H 144/69 H 144/72 H [Right Brachial artery] O2 Saturation 98 96 Oxygen O2 Source Room air I&O (Last 24 Hrs): Intake and Output Totals x24h 10/01/19 10/02/19 10/03/19 23:59 23:59 23:59 Intake Total 1700 820 Output Total 120 Balance 1580 820 General: Alert, No acute distress HEENT: Atraumatic, Mucous membr. moist/pink Neck: Supple, No JVD Neuro: Alert, Non Focal Cardiovascular: Regular rate Respiratory: No respiratory distress Abdomen: Soft, Other (Diminished bowel sounds) Extremities: No edema - Results Results: Laboratory Results WBC 7.3 x10^3/uL (4.8-10.8) 10/02/19 06:55 RBC 4.36 10^6/uL (4.20-5.40) 10/02/19 06:55 Hgb 10.1 g/dL (12.0-16.0) L 10/03/19 05:09 Hct 29.1 % (37.0-47.0) L 10/03/19 05:09 MCV 93.1 fL (81.0-99.0) 10/02/19 06:55 MCH 31.0 pg (27.0-31.0) 10/02/19 06:55 MCHC 33.3 g/dL (32.0-36.0) 10/02/19 06:55 RDW 13.8 % (12.0-15.0) 10/02/19 06:55 Plt Count 189 10^3/uL (130-450) 10/02/19 06:55 MPV 11.1 fL (7.9-10.8) H 10/02/19 06:55 Neut # (Auto) 5.9 10^3/uL (1.5-6.6) 10/02/19 06:55 Lymph # (Auto) 0.9 10^3/uL (1.5-3.5) L 10/02/19 06:55 [place] # (Auto) 0.5 10^3/uL (0.0-1.0) 10/02/19 06:55 Eos # (Auto) 0.1 10^3/uL (0.0-0.7) 10/02/19 06:55 Baso # (Auto) 0.0 10^3/uL (0.0-0.1) 10/02/19 06:55 Absolute Nucleated RBC 0.00 x10^3/uL 10/02/19 06:55 Nucleated RBC % 0.0 /100WBC 10/02/19 06:55 PT 13.0 secs (9.9-12.6) H 10/02/19 06:55 INR 1.1 (0.8-1.2) 10/02/19 06:55 APTT 28.5 secs (24.9-33.3) 10/02/19 06:55 Sodium 131 mmol/L (135-145) L 10/03/19 05:09 Potassium 2.8 mmol/L (3.5-5.0) L 10/03/19 05:09 Chloride 96 mmol/L (101-111) L 10/03/19 05:09 Carbon Dioxide 29 mmol/L (21-32) 10/03/19 05:09 Anion Gap 6.0 (6-13) 10/03/19 05:09 BUN 9 mg/dL (6-20) 10/03/19 05:09 Creatinine 0.4 mg/dL (0.4-1.0) 10/03/19 05:09 Estimated GFR (MDRD) 151 (>89) 10/03/19 05:09 Glucose 91 mg/dL (70-100) 10/03/19 05:09 Calcium 8.6 mg/dL (8.5-10.3) 10/03/19 05:09 Magnesium 1.9 mg/dL (1.7-2.8) 10/02/19 14:10 Total Bilirubin 0.9 mg/dL (0.2-1.0) 10/02/19 06:55 AST 18 IU/L (10-42) 10/02/19 06:55 ALT 13 IU/L (10-60) 10/02/19 06:55 Alkaline Phosphatase 61 IU/L (42-121) 10/02/19 06:55 Total Protein 6.9 g/dL (6.7-8.2) 10/02/19 06:55 Albumin 4.2 g/dL (3.2-5.5) 10/02/19 06:55 Globulin 2.7 g/dL (2.1-4.2) 10/02/19 06:55 Albumin/Globulin Ratio 1.6 (1.0-2.2) 10/02/19 06:55 Lipase 27 U/L (22-51) 10/02/19 06:55 Urine Color YELLOW 10/02/19 17:15 Urine Clarity CLEAR (CLEAR) 10/02/19 17:15 Urine pH 7.0 PH (5.0-7.5) 10/02/19 17:15 Ur Specific [place] 1.010 (1.002-1.030) 10/02/19 17:15 Urine Protein NEGATIVE mg/dL (NEGATIVE) 10/02/19 17:15 Urine Glucose (UA) NEGATIVE mg/dL (NEGATIVE) 10/02/19 17:15 Urine Ketones TRACE mg/dL (NEGATIVE) 10/02/19 17:15 Urine Occult Blood SMALL (NEGATIVE) H 10/02/19 17:15 Urine Nitrite NEGATIVE (NEGATIVE) 10/02/19 17:15 Urine Bilirubin NEGATIVE (NEGATIVE) 10/02/19 17:15 Urine Urobilinogen 0.2 (NORMAL) E.U./dL (NORMAL) 10/02/19 17:15 Ur Leukocyte Esterase NEGATIVE (NEGATIVE) 10/02/19 17:15 Urine RBC 0-5 /HPF (0-5) 10/02/19 17:15 Urine WBC 0-3 /HPF (0-5) 10/02/19 17:15 Ur Squamous Epith Cells NONE SEEN (<= Few) 10/02/19 17:15 Urine Bacteria None Seen /HPF (None Seen) 10/02/19 17:15 Ur Microscopic Review INDICATED 10/02/19 17:15 Urine Culture Comments NOT INDICATED 10/02/19 17:15
--- NOTE | 2019-10-03 11:51 | PROVIDER PROGRESS NOTE ---
Subjective - Prog Note Date Prog Note Date: 10/03/19 - Subjective Pt reports feeling: No change (still passing blood. minimal to no pain. No stool) Objective - Vital Signs/Intake & Output Vital Signs: Vital Signs x48h Temp Pulse Resp BP Pulse Ox 10/03/19 09:00 36.5 C 63 18 144/72 H 10/03/19 05:00 36.8 C 57 L 20 144/69 H 96 Intake & Output: Intake & Output 09/30/19 10/01/19 10/02/19 10/03/19 23:59 23:59 23:59 23:59 Intake Total 1700 820 Output Total 120 Balance 1580 820 - Objective General Appearance: positive: No acute distress, Alert Eyes Bilateral: positive: Normal inspection, PERRL, EOMI ENT: positive: No signs of dehydration Neck: positive: No JVD Respiratory: positive: No respiratory distress Abdomen: positive: Other (minimal distension and tenderness lower abdomen) Extremities: positive: No pedal edema - Lab Results Fish Bones: 10/03/19 05:09 10/03/19 05:09 Other Labs: Lab Results x24hrs 10/03/19 10/03/19 10/02/19 Range/Units 05:09 05:09 22:00 Hgb 10.1 L 10.0 L (12.0-16.0) g/dL Hct 29.1 L 29.3 L (37.0-47.0) % Sodium 131 L (135-145) mmol/L Potassium 2.8 L (3.5-5.0) mmol/L Chloride 96 L (101-111) mmol/L Carbon Dioxide 29 (21-32) mmol/L Anion Gap 6.0 (6-13) BUN 9 (6-20) mg/dL Creatinine 0.4 (0.4-1.0) mg/dL Estimated GFR (MDRD) 151 (>89) Glucose 91 (70-100) mg/dL Calcium 8.6 (8.5-10.3) mg/dL Magnesium (1.7-2.8) mg/dL Urine Color Urine Clarity (CLEAR) Urine pH (5.0-7.5) PH Ur Specific [place] (1.002-1.030) Urine Protein (NEGATIVE) mg/dL Urine Glucose (UA) (NEGATIVE) mg/dL Urine Ketones (NEGATIVE) mg/dL Urine Occult Blood (NEGATIVE) Urine Nitrite (NEGATIVE) Urine Bilirubin (NEGATIVE) Urine Urobilinogen (NORMAL) E.U./dL Ur Leukocyte Esterase (NEGATIVE) Urine RBC (0-5) /HPF Urine WBC (0-5) /HPF Ur Squamous Epith Cells (<= Few) Urine Bacteria (None Seen) /HPF Ur Microscopic Review Urine Culture Comments 10/02/19 10/02/19 10/02/19 Range/Units 17:15 14:10 14:10 Hgb 11.7 L (12.0-16.0) g/dL Hct 35.2 L (37.0-47.0) % Sodium (135-145) mmol/L Potassium 3.4 L (3.5-5.0) mmol/L Chloride (101-111) mmol/L Carbon Dioxide (21-32) mmol/L Anion Gap (6-13) BUN (6-20) mg/dL Creatinine (0.4-1.0) mg/dL Estimated GFR (MDRD) (>89) Glucose (70-100) mg/dL Calcium (8.5-10.3) mg/dL Magnesium 1.9 (1.7-2.8) mg/dL Urine Color YELLOW Urine Clarity CLEAR (CLEAR) Urine pH 7.0 (5.0-7.5) PH Ur Specific [place] 1.010 (1.002-1.030) Urine Protein NEGATIVE (NEGATIVE) mg/dL Urine Glucose (UA) NEGATIVE (NEGATIVE) mg/dL Urine Ketones TRACE (NEGATIVE) mg/dL Urine Occult Blood SMALL H (NEGATIVE) Urine Nitrite NEGATIVE (NEGATIVE) Urine Bilirubin NEGATIVE (NEGATIVE) Urine Urobilinogen 0.2 (NORMAL) (NORMAL) E.U./dL Ur Leukocyte Esterase NEGATIVE (NEGATIVE) Urine RBC 0-5 (0-5) /HPF Urine WBC 0-3 (0-5) /HPF Ur Squamous Epith Cells NONE SEEN (<= Few) Urine Bacteria None Seen (None Seen) /HPF Ur Microscopic Review INDICATED Urine Culture Comments NOT INDICATED Assessment/Plan - Problem List (1) Acute lower GI bleeding Impression: 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 She continues to pass blood without stool. Her proximal bowel has very significant diverticulosis. I believe her only safe option to correct the problem is colectomy and colostomy. She has thought about this the last couple days and is now in agreement. plan surgery today. parq held and consent now has been obtained
--- NOTE | 2019-10-03 13:42 | ANESTHESIA ---
Pre-Anesthesia VS, & Labs - Diagnosis sigmoid volvulus - Procedure sigmoid colectomy Vital Signs: Temp Pulse Resp BP Pulse Ox 36.5 C 66 20 138/77 H 97 10/03/19 12:00 10/03/19 12:17 10/03/19 12:00 10/03/19 12:17 10/03/19 12:00 Height 5 ft 9.5 in Weight (kg) 67.5 kg Body Mass Index 21.7 - NPO >8 hours - Is Patient ?: No - Lab Results Current Lab Results: Laboratory Tests 10/03/19 05:09: Sodium 131 L, Potassium 2.8 L, Chloride 96 L, Carbon Dioxide 29, Anion Gap 6.0, BUN 9, Creatinine 0.4, Estimated GFR (MDRD) 151, Glucose 91, Calcium 8.6 10/03/19 05:09: Hgb 10.1 L, Hct 29.1 L 10/02/19 22:00: Hgb 10.0 L, Hct 29.3 L 10/02/19 14:10: Potassium 3.4 L, Magnesium 1.9 10/02/19 14:10: Hgb 11.7 L, Hct 35.2 L 10/02/19 06:55: Sodium 132 L, Potassium 2.7 L, Chloride 90 L, Carbon Dioxide 29, Anion Gap 13.0, BUN 13, Creatinine 0.6, Estimated GFR (MDRD) 95, Glucose 128 H, Calcium 9.5, Total Bilirubin 0.9, AST 18, ALT 13, Alkaline Phosphatase 61, Total Protein 6.9, Albumin 4.2, Globulin 2.7, Albumin/Globulin Ratio 1.6, Lipase 27 10/02/19 06:55: PT 13.0 H, INR 1.1, APTT 28.5 10/02/19 06:55: WBC 7.3, RBC 4.36, Hgb 13.5, Hct 40.6, MCV 93.1, MCH 31.0, MCHC 33.3, RDW 13.8, Plt Count 189, MPV 11.1 H, Neut # (Auto) 5.9, Lymph # (Auto) 0.9 L, [place] # (Auto) 0.5, Eos # (Auto) 0.1, Baso # (Auto) 0.0, Absolute Nucleated RBC 0.00, Nucleated RBC % 0.0 Fish Bones: 10/03/19 05:09 10/03/19 05:09 Home Medications and Allergies Home Medications: Ambulatory Orders Aspirin EC [Ecotrin] 325 mg PO DAILY 10/02/19 Calcium Carbonate [Calcium] 600 mg PO DAILY 10/02/19 Donepezil [Aricept] 5 mg PO QPM 10/02/19 Lisinopril/Hydrochlorothiazide [Lisinopril-Hctz 20-12.5 mg Tab] 2 each PO DAILY 10/02/19 Oxybutynin [Ditropan] 5 mg PO QPM 10/02/19 Pravastatin [Pravachol] 40 mg PO DAILY 10/02/19 Active Medications Acetaminophen (Tylenol) 650 mg PO Q4HR PRN PRN Reason: Pain 1 to 4 Carboxymethylcellulose (Refresh 1% Ophth Drops) 1 drops EACHEYE PRN PRN PRN Reason: Dry Eye Last Admin: 10/03/19 05:41 Dose: 1 drops Donepezil HCl (Aricept) 5 mg PO DAILY [facility] Last Admin: 10/03/19 11:09 Dose: 5 mg Famotidine (Pepcid) 20 mg PO BID [facility] Last Admin: 10/03/19 09:17 Dose: 20 mg Potassium Chloride (Potassium Chloride) 10 meq in 100 mls @ 100 mls/hr IV Q1H [facility] Stop: 10/03/19 13:59 Last Admin: 10/03/19 13:35 Dose: 100 mls/hr Potassium Chloride/Dextrose/Sod Cl () 1,000 mls @ 83.333 mls/hr IV .Q12H [facility] Last Admin: 10/03/19 11:08 Dose: 83.333 mls/hr Cefotetan Disodium 2 gm/ (Sodium Chloride) 100 mls @ 200 mls/hr IV Q12H [facility] Ondansetron HCl (Zofran Inj) 4 mg IVP Q6HR PRN PRN Reason: Nausea / Vomiting Oxybutynin Chloride (Ditropan) 5 mg PO QPM [facility] Last Admin: 10/02/19 20:14 Dose: 5 mg Sodium Chloride (Normal Saline Flush 0.9%) 10 ml IVP PRN PRN PRN Reason: NEEDED PER PROVIDER ORDERS Last Admin: 10/03/19 00:01 Dose: 10 ml Sodium Chloride (Normal Saline Flush 0.9%) 10 ml IVP 0100,0900,1700 TASHIA Last Admin: 10/03/19 09:17 Dose: 10 ml Amlodipine Besylate 5 mg PO DAILY 11/17/15 Aspirin EC [Ecotrin] 325 mg PO DAILY 10/02/19 Calcium Carbonate [Calcium] 600 mg PO DAILY 10/02/19 Donepezil [Aricept] 5 mg PO QPM 10/02/19 Lisinopril/Hydrochlorothiazide [Lisinopril-Hctz 20-12.5 mg Tab] 2 each PO DAILY 10/02/19 Oxybutynin [Ditropan] 5 mg PO QPM 10/02/19 Pravastatin [Pravachol] 40 mg PO DAILY 10/02/19 Allergies/Adverse Reactions: Allergies Allergy/AdvReac Type Severity Reaction Status Date / Time Sulfa (Sulfonamide AdvReac Unknown Verified 11/17/15 16:42 Antibiotics) Anes History & Medical History - Anesthetic History Anesthesia Complications: reports: No previous complications - Medical History Cardiovascular: reports: Hypertension, High cholesterol, Coronary artery disease Pulmonary: reports: None Gastrointestinal: reports: GI bleed, Colon polyps, Diverticulitis Urinary: reports: None Neuro: reports: None Musculoskeletal: reports: Osteoporosis Endocrine/Autoimmune: reports: None Blood Disorders: reports: None Skin: reports: None Smoking Status: Never smoker - Surgical History General: Appendectomy Eyes Ears Nose Throat (EENT): Tonsil/Adenoidectomy Orthopedic: Arthroscopic surgery Exam General: Alert Dental: WNL Mouth Opening: Greater than 4 Fingerbreadths Mallampati classification: III Thyromental Distance: greater than 6 cm Respiratory: Lungs clear, Decreased breath sounds Cardiovascular: Regular rate Mental/Cognitive Status: Alert/Oriented X3 Plan Anesthesia Type: General Consent for Procedure(s) Verified and Reviewed: Yes Code Status: Do Not Attempt Resuscitation (airway management and meds only, no compressions, no shock per patient's wishes) ASA classification: 3-Severe systemic disease Is this case an emergency?: Yes
[2019-10-03 14:05] LABS: HGB - HEMOGLOBIN 9.9 g/dL (12.0-16.0)
--- NOTE | 2019-10-03 14:20 | CONSULTATION NOTE ---
Palliative Care Consultation - Referral Referring Provider: Deanna Deleon MD Time of Visit: 10:45-11:45 Referral setting: Hospitalized patient Referral Reason: GI Bleed/Lung tumor/Goals of Care - Information Sources Records reviewed: RN notes reviewed, Previous records reviewed History/Review of Systems obtained from: Patient, Family (did check in with ESVIN Theodore, does not have health history) Exam limitations: Clinical condition (patient with mild STM issues) - History of Present Illness Brief History of Present Illness: This is an 84-year-old gentleman who lives at [facility], who moved from [place] several years ago. She reports she does have a history of intermittent diarrhea, but has been managing fairly independently. This was confirmed at [facility], patient is on independent living, does not receive any other services from them. She reports no history of bowel pain or discomfort, though it does appear back and 05/2018 she did have an x-ray for abdominal pain. She reports she presented with bloody stools, feeling weak, but no obstructive symptoms of nausea or vomiting, her abdomen is slightly tender but soft, with hyperactive bowel tones. Patient in follow-up had a CT scan, that shows enlarged retroperitoneal adenopathy, concerning for neoplasm, significant diverticulosis in the colon, no inflammation and may have a partial sigmoid volvulus with no inflammation and mild distention per surgical consult. In her scan, unfortunately they found a right lower lobe spiculated nodule that measures 12 mm which is suspicious for malignancy. She has had some urgency, she was up for her third episode of bleeding, passing dark red blood, no stool observed. She is feeling quite overwhelmed with all the information she has been receiving, and does understand she has had a conversation with the surgeon earlier, that she may if she had surgery end up with a colostomy. Patient does make eye contact, she is able to engage in conversation, she is unable to weigh nuances, but definitely understands the treatment before her, which is follow-up with surgery, or essentially most lik madisyn a slow and/or acute decline leading to end of life. Palliative care is been asked to meet with patient regarding defining goals of care, she has a brother and [id number], whom she moved from [place] to be closer to here in [place]. Please see palliative care discussion. Medical/Surgical History - Past Medical History Cardiovascular: reports: Hypertension, High cholesterol, Coronary artery disease Respiratory: reports: None Neuro: Other (on aricept/facility reports no s/s concern related to dementia; patient reports some STM issues; and falls) Endocrine/Autoimmune: reports: None GI: reports: GI bleed, Colon polyps, Diverticulitis : reports: None HEENT: reports: Chronic vision loss Psych: reports: None Musculoskeletal: reports: Osteoporosis Derm: reports: None MRSA Hx?: No - Past Surgical History General: reports: Appendectomy Ortho: reports: Arthroscopic surgery HEENT: reports: Tonsil/Adenoidectomy - Substance History Use: Uses substance without health or social issues: NONE Social History - Living Situation Living arrangement: Assisted living Living Situation: Alone Support System: Patient had originally lived at [facility], which she found quite expensive and did not need that level of care. She did move into apartment, unfortunately she had a fall and no longer able to live independently. She has been at [facility] for 3 years, reports she perceives this working out fairly well. In follow-up with [facility], they are not providing her any services, she is in independent living. 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 She tot and several 1 room schools, usually third or fourth grade. She is not nor has any children. Family History - Family History Family History: Mother: (both parents of old age; her mother lived to 102; father to 92), Father: , Sister: Alive and Well, Alzheimer's Disease, Brother: Alive and Well Medications/Allergies - Medications Active Medication List: Active Medications Acetaminophen (Tylenol) 650 mg PO Q4HR PRN PRN Reason: Pain 1 to 4 Carboxymethylcellulose (Refresh 1% Ophth Drops) 1 drops EACHEYE PRN PRN PRN Reason: Dry Eye Last Admin: 10/03/19 05:41 Dose: 1 drops Donepezil HCl (Aricept) 5 mg PO DAILY [facility] Last Admin: 10/03/19 11:09 Dose: 5 mg Famotidine (Pepcid) 20 mg PO BID [facility] Last Admin: 10/03/19 09:17 Dose: 20 mg Potassium Chloride/Dextrose/Sod Cl () 1,000 mls @ 83.333 mls/hr IV .Q12H [facility]ASHIA Last Admin: 10/03/19 11:08 Dose: 83.333 mls/hr Cefotetan Disodium 2 gm/ (Sodium Chloride) 100 mls @ 200 mls/hr IV Q12H [facility] Ondansetron HCl (Zofran Inj) 4 mg IVP Q6HR PRN PRN Reason: Nausea / Vomiting Oxybutynin Chloride (Ditropan) 5 mg PO QPM [facility] Last Admin: 10/02/19 20:14 Dose: 5 mg Sodium Chloride (Normal Saline Flush 0.9%) 10 ml IVP PRN PRN PRN Reason: NEEDED PER PROVIDER ORDERS Last Admin: 10/03/19 00:01 Dose: 10 ml Sodium Chloride (Normal Saline Flush 0.9%) 10 ml IVP 0100,0900,1700 [facility] Last Admin: 10/03/19 09:17 Dose: 10 ml Amlodipine Besylate 5 mg PO DAILY 11/17/15 Aspirin EC [Ecotrin] 325 mg PO DAILY 10/02/19 Calcium Carbonate [Calcium] 600 mg PO DAILY 10/02/19 Donepezil [Aricept] 5 mg PO QPM 10/02/19 Lisinopril/Hydrochlorothiazide [Lisinopril-Hctz 20-12.5 mg Tab] 2 each PO DAILY 10/02/19 Oxybutynin [Ditropan] 5 mg PO QPM 10/02/19 Pravastatin [Pravachol] 40 mg PO DAILY 10/02/19 - Allergies Allergies/Adverse Reactions: Allergies Allergy/AdvReac Type Severity Reaction Status Date / Time Sulfa (Sulfonamide AdvReac Unknown Verified 11/17/15 16:42 Antibiotics) Review of Systems - Constitutional Constitutional: reports: Fatigue. denies: Fever, Chills - Eyes Eyes: reports: Vision loss - Ears, Nose & Throat Ears, Nose & Throat: reports: Hearing loss, Dry mouth - Cardiovascular Cardiovascular: reports: Lightheadedness, Decr. exercise tolerance. denies: Edema - Respiratory Respiratory: reports: SOB with exertion. denies: SOB at rest - Gastrointestinal Gastrointestinal: reports: Bloody stools, Good appetite. denies: Abdominal pain, Abdominal distention, Nausea, Vomiting, Reflux/heartburn - Musculoskeletal Musculoskeletal: reports: Muscle weakness - Integumentary Integumentary: reports: Dryness - Neurological Neurological: reports: General weakness, Memory problems (mild STM noted in history taking) - Psychiatric Psychiatric: reports: Depression, Anxiety - Hematologic/Lymphatic Hematologic/Lymphatic: reports: Anemia - All Other Systems All Other Systems: reports: Reviewed and negative Physical Exam - Vital Signs Vital Signs: Vital Signs x48h Temp Pulse Resp BP Pulse Ox 10/03/19 12:17 66 138/77 H 10/03/19 12:00 36.5 C 68 20 175/65 H 97 10/03/19 09:00 36.5 C 63 18 144/72 H - Physical Exam General Appearance: positive: Alert, Mild distress, Anxious Eyes Bilateral: positive: Normal inspection ENT: negative: Dry mucous membranes Neck: positive: No JVD, Trachea midline Cardiovascular: positive: Regular rate & rhythm Respiratory: positive: No respiratory distress, Diminished in bases Abdomen: positive: Soft, Abnml bowel sounds, Tenderness, Distended, Obese. negative: Guarding, Rebound, Hepatomegaly, Mass Skin: positive: Pallor, Dryness Extremities: positive: No pedal edema (has SCDs on), Other (needing assist related to weakness to BR) Neurologic/Psychiatric: positive: Oriented x3, Mood/affect nml, Weakness, Flat affect Palliative Care - POLST Patient has POLST: Yes POLST Status: DNR, Selective Treatment Pain: No pain Tiredness/Fatigue: Moderate (4-6) Drowsiness/Sedation: Mild (1-3) Nausea: None Anorexia: None Dyspnea: Mild (1-3) Depression: Mild (1-3) Anxiety: Severe (7-10) Feelings of wellbeing/Perceived Quality of Life: Good, Acceptable, Worsening (related to overwhelmed with all the "bad news" today) Performance Status: Patient is ambulatory and independent at home. She does not need assistance with her ADLs. I did follow-up with [facility], if she were to have a colostomy, they do not assist with that kind of care.She is feeling quite weak and shaky right now, needing contact assist to the bathroom. - Palliative Care Discussion: Patient does understand that she is having bleeding, she does remember having a conversation with the surgeon, and is not in favor of a colostomy. We did discuss in the context though of the continuum, given her continued frequent bloody stools, are going to have to do something to intervene or evaluate current situation, or she will continue to deteriorate. She does perceive herself as having good quality of life, though she is elderly, and limited she does feel like life is still worth living. She is quite clear though she does not want any "heroics", and is somewhat hesitant to think about having a colostomy, but understands given her current situation this is a real possibility. I had gone back and clarified with Dr. Keith [phone], regarding plans, had thought they were pursuing colonoscopy with risk of colostomy, but does not feel she would be a candidate for colonoscopy and most likely will need a colostomy. We made originally talk she was willing to undergo the procedure, recognizing there was the continuum of possibilities, but went back and confirmed there was a high probability of a colostomy as an outcome including surgery. We did discuss benefits and burdens, certainly surgery at her age is high risk, living with a colostomy is possible and discuss more about what that might look like. We also discussed "just letting everything go", as she is trying to decide what to do. In the context of moving forward, she does feel like she is quite scared, and does understand the seriousness of needing to make a decision. I did call with her permission, and speak to her [id number] Ewelina, They did find [employer] both for finances, and for healthcare decision making. They will bring a copy in. She does have a POLST form from 12/2016 with DNA R and limited interventions. This is consistent with what she had spoken with regarding hospitalist, Dr. Santana. Her [id number] does understand the seriousness of her current condition, and the difficult position that patient is in. She will support her in her decision to move forward with surgery, and understands this will be happening this afternoon. She also understands most likely will need to get a colostomy, and that patient understands this also. Patient and I also discussed in the context of the seriousness of her illness, most likely being a malignancy/cancer, she does not understand if she "never smoked" why she would have it in her lungs, we discussed sometimes there could also be spread from another site. That having the surgery would help with the immediate acute problem, but there would be bigger picture and more decisions to make in the future. She admits to feeling overwhelmed, but at this point wants to proceed. This was communicated to both the surgeon and hospitalist. Results - Lab Results Lab results reviewed: Yes Fish Bones: 10/03/19 13:57 10/03/19 05:09 Lab and Imaging Results: Lab Results x24hrs 10/03/19 10/03/19 10/03/19 Range/Units 13:57 05:09 05:09 Hgb 9.9 L 10.1 L (12.0-16.0) g/dL Hct 28.9 L 29.1 L (37.0-47.0) % Sodium 131 L (135-145) mmol/L Potassium 2.8 L (3.5-5.0) mmol/L Chloride 96 L (101-111) mmol/L Carbon Dioxide 29 (21-32) mmol/L Anion Gap 6.0 (6-13) BUN 9 (6-20) mg/dL Creatinine 0.4 (0.4-1.0) mg/dL Estimated GFR (MDRD) 151 (>89) Glucose 91 (70-100) mg/dL Calcium 8.6 (8.5-10.3) mg/dL Magnesium (1.7-2.8) mg/dL Urine Color Urine Clarity (CLEAR) Urine pH (5.0-7.5) PH Ur Specific [place] (1.002-1.030) Urine Protein (NEGATIVE) mg/dL Urine Glucose (UA) (NEGATIVE) mg/dL Urine Ketones (NEGATIVE) mg/dL Urine Occult Blood (NEGATIVE) Urine Nitrite (NEGATIVE) Urine Bilirubin (NEGATIVE) Urine Urobilinogen (NORMAL) E.U./dL Ur Leukocyte Esterase (NEGATIVE) Urine RBC (0-5) /HPF Urine WBC (0-5) /HPF Ur Squamous Epith Cells (<= Few) Urine Bacteria (None Seen) /HPF Ur Microscopic Review Urine Culture Comments 10/02/19 10/02/19 10/02/19 Range/Units 22:00 17:15 14:10 Hgb 10.0 L (12.0-16.0) g/dL Hct 29.3 L (37.0-47.0) % Sodium (135-145) mmol/L Potassium 3.4 L (3.5-5.0) mmol/L Chloride (101-111) mmol/L Carbon Dioxide (21-32) mmol/L Anion Gap (6-13) BUN (6-20) mg/dL Creatinine (0.4-1.0) mg/dL Estimated GFR (MDRD) (>89) Glucose (70-100) mg/dL Calcium (8.5-10.3) mg/dL Magnesium 1.9 (1.7-2.8) mg/dL Urine Color YELLOW Urine Clarity CLEAR (CLEAR) Urine pH 7.0 (5.0-7.5) PH Ur Specific [place] 1.010 (1.002-1.030) Urine Protein NEGATIVE (NEGATIVE) mg/dL Urine Glucose (UA) NEGATIVE (NEGATIVE) mg/dL Urine Ketones TRACE (NEGATIVE) mg/dL Urine Occult Blood SMALL H (NEGATIVE) Urine Nitrite NEGATIVE (NEGATIVE) Urine Bilirubin NEGATIVE (NEGATIVE) Urine Urobilinogen 0.2 (NORMAL) (NORMAL) E.U./dL Ur Leukocyte Esterase NEGATIVE (NEGATIVE) Urine RBC 0-5 (0-5) /HPF Urine WBC 0-3 (0-5) /HPF Ur Squamous Epith Cells NONE SEEN (<= Few) Urine Bacteria None Seen (None Seen) /HPF Ur Microscopic Review INDICATED Urine Culture Comments NOT INDICATED 10/02/19 Range/Units 14:10 Hgb 11.7 L (12.0-16.0) g/dL Hct 35.2 L (37.0-47.0) % Sodium (135-145) mmol/L Potassium (3.5-5.0) mmol/L Chloride (101-111) mmol/L Carbon Dioxide (21-32) mmol/L Anion Gap (6-13) BUN (6-20) mg/dL Creatinine (0.4-1.0) mg/dL Estimated GFR (MDRD) (>89) Glucose (70-100) mg/dL Calcium (8.5-10.3) mg/dL Magnesium (1.7-2.8) mg/dL Urine Color Urine Clarity (CLEAR) Urine pH (5.0-7.5) PH Ur Specific [place] (1.002-1.030) Urine Protein (NEGATIVE) mg/dL Urine Glucose (UA) (NEGATIVE) mg/dL Urine Ketones (NEGATIVE) mg/dL Urine Occult Blood (NEGATIVE) Urine Nitrite (NEGATIVE) Urine Bilirubin (NEGATIVE) Urine Urobilinogen (NORMAL) E.U./dL Ur Leukocyte Esterase (NEGATIVE) Urine RBC (0-5) /HPF Urine WBC (0-5) /HPF Ur Squamous Epith Cells (<= Few) Urine Bacteria (None Seen) /HPF Ur Microscopic Review Urine Culture Comments Impression and Recommendations - Palliative Care Impression: This is an 84-year-old woman who unfortunately presents acutely with lower GI bleed, with 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 Patient feeling overwhelmed with current situation, has decided move forward with surgical intervention. Palliative care continue provide support regarding goals of care. Recommendations/Counseling Done: 1. GI bleed. Patient continued to have acute bleeding, urgent decision and discussion facilitated given patient need to be make decision regarding surgical intervention in the face of most likely outcome a colostomy. Palliative care consulted regarding weighing benefits and burdens of moving forward with surgical intervention in the face of most likely a metastatic malignancy. Counseling provided regarding goals of care, weighing benefits and burdens of moving forward, or transitioning to comfort/hospice approach. Patient still perceives quality of life is acceptable, is feeling overwhelmed by her current situation, is able to participate in decision-making regarding moving forward. This was then reviewed with her [id number], in conjunction with her brother, and support of her decision. 2. Malignancy of unknown primary. Patient needs to get past her acute situation, then can further explore benefits and burdens of moving forward, with further oncologic staging and work-up. 3. Advanced care planning. Patient does have D POA with her brother as first person, a sister as backup if unable or willing to participate. She will bring in the paperwork. She has a recent POLST with DNA R and limited interventions, as well as has been consistent and filled one out back in 12/2016 with same information. Palliative care asked to consult with patient regarding goals of care, coordination of patient's decision with both surgeon and hospitalist, will continue to follow and provide assistance as needed. Time Spent: 60 minutes with greater than 50% of this done in counseling regarding goals of care, advanced care planning, assisting with interpretation and defining decision-making capacity and coordination of care with hospital team.
[2019-10-03] MEDS ORDERED: CEFOTETAN DISODIUM 2 GM in SODIUM CHLORIDE 0.9% 100ML 100 ML IV SCH (16:00)
[2019-10-03] MEDS ORDERED: ePHEDrine 50 MG/ML VIAL IVP ONE (16:35)
[2019-10-03] MEDS ORDERED: PHENYLEPHRINE 10 MG/ML VIAL IV ONE (16:35)
[2019-10-03] MEDS ORDERED: LIDOCAINE-MPF 2% 5 ML VIAL IM ONE (16:35)
[2019-10-03] MEDS ORDERED: DEXAMETHASONE 4 MG/ML VIAL IVP ONE (16:35)
[2019-10-03] MEDS ORDERED: ROCURONIUM 50 MG/5 ML VIAL IVP ONE (16:35)
[2019-10-03] MEDS ORDERED: HYDROmorphone 1 MG/ML CARPUJECT IVP ONE (16:35)
[2019-10-03] MEDS ORDERED: fentaNYL 100 MCG/2 ML VIAL IVP ONE (16:35)
[2019-10-03] MEDS ORDERED: ONDANSETRON 4 MG/2 ML VIAL IVP ONE (16:35)
[2019-10-03] MEDS ORDERED: ACETAMINOPHEN 1,000 MG/100 ML 100 ML IV ONE (16:35)
[2019-10-03] MEDS ORDERED: BUPIVACAINE 0.25% PF 30 ML VIAL SUBQ ONE (16:39)
[2019-10-03] MEDS ORDERED: BUPIVACAINE 0.25% PF 30 ML VIAL ONE (16:39)
[2019-10-03] MEDS ORDERED: LACTATED RINGERS 1,000 ML IV ONE (17:24)
[2019-10-03] MEDS ORDERED: SUGAMMADEX 200 MG/2 ML VIAL IVP ONE (18:23)
[2019-10-03] MEDS ORDERED: SODIUM CHLORIDE 0.9% 1,000 ML IV ONE (18:55)
[2019-10-03] MEDS: fentaNYL 100 MCG/2 ML VIAL ONE ×2 (19:01→19:05)
[2019-10-03] MEDS ORDERED: ONDANSETRON 4 MG/2 ML VIAL ONE (19:05)
[2019-10-03] MEDS ORDERED: PROMETHAZINE 25 MG/1 ML VIAL ONE (19:41)
[2019-10-03] MEDS: LACTATED RINGERS 1,000 ML IV SCH (20:15)
[2019-10-03] MEDS: CEFOTETAN DISODIUM 2 GM in SODIUM CHLORIDE 0.9% MINIBAG 100 ML IV SCH (20:15)
[2019-10-03] MEDS ORDERED: FAMOTIDINE 20 MG TABLET PO SCH (21:00)
[2019-10-03] MEDS: OXYBUTYNIN 5MG TABLET PO SCH (22:10)
--- NOTE | 2019-10-03 22:30 | OPERATIVE REPORT ---
DATE OF SERVICE: 10/03/2019 Physician: Antonio Keith MD PREOPERATIVE DIAGNOSES 1. Lower gastrointestinal bleed. 2. Significant diverticulosis, descending colon. 3. Sigmoid volvulus. POSTOPERATIVE DIAGNOSES 1. Lower gastrointestinal bleed. 2. Significant diverticulosis, descending colon. 3. Sigmoid volvulus. 4. Considerable blood in the right colon including the cecum. PROCEDURE 1. Subtotal colectomy with anastomosis. 2. Takedown of splenic flexure. SURGEON: Antonio Keith MD CASHIER AND WAITER/WAITRESS: Elli Restrepo MD TYPE OF ANESTHESIA 1. General endotracheal anesthesia. 2. Local anesthesia with Marcaine. COMPLICATIONS: None. SPECIMEN: Subtotal colectomy. ESTIMATED BLOOD LOSS: 50 mL FLUIDS: She received 1 unit of packed red blood cell. DRAINS: None. FINDINGS: As above. Significant amount of blood in the right colon. Very viable and healthy appearing lower sigmoid colon. Considerable mid descending diverticulosis present. INDICATIONS FOR PROCEDURE: Patient is an 84-year-old who came into the hospital a few days ago with lower GI bleed. She continues to bleed daily. She had a CT scan with above findings. She has presented for a colectomy and most likely colostomy. Risks discussed. Alternatives discussed. All questions answered and consent obtained. DESCRIPTION OF PROCEDURE: The patient was properly identified, brought to the operating room and placed in supine position. General endotracheal anesthesia was induced. Sequential compression devices and orogastric tube were placed. She was prepped and draped in a sterile fashion and given preoperative antibiotics. A low midline incision was made. The abdomen was opened sharply. She did have a twist in her lower descending and sigmoid colon; however, this was all very viable and most of the blood was in her right colon. Her distal sigmoid was very healthy. She had no stool within her colon. A subtotal colectomy was performed, leaving about a foot of the lower sigmoid colon. The mesentery was taken with clamps and 2-0 Vicryl ties. The colon was mobilized along the white line of Toldt and the splenic flexure taken down. The omentum was carefully mobilized off from the colon and left intact. The mid sigmoid colon was divided with a ADAM stapler. The terminal ileum was divided with a ADAM stapler. Specimen was removed. A handsewn end of terminal ileum to side of sigmoid colon was performed. A standard 2-layer technique with outer 3-0 silk Lembert and an inner running 3-0 Vicryl suture. Additional suture was placed reapproximating the adipose tissue of the sigmoid and the terminal ileum. There was no soilage. Blood loss was very minimal. The omentum was brought down over the midline incision. The fascia was closed with a #1 running PDS suture. Subcutaneous tissue was irrigated and closed with 2-0 Vicryl. Skin was closed with tesha. She tolerated the procedure very well. TD: 10/03/2019 19:39 LUDIVINA
[2019-10-03] MEDS: HYDROmorphone 0.5 MG/0.5 ML SYRINGE IVP PRN (23:00)
[2019-10-04] MEDS: oxyCODONE 5 MG TABLET PO PRN ×2 (01:24→08:33)
[2019-10-04] MEDS: SODIUM CHLORIDE FLUSH 0.9% 10 ML SYRINGE IVP SCH ×2 (04:41→16:35)
[2019-10-04] MEDS: HYDROmorphone 0.5 MG/0.5 ML SYRINGE IVP PRN ×4 (04:41→19:14)
[2019-10-04 05:37] LABS: BASOPHILS % (AUTO) 0.2 %; HGB - HEMOGLOBIN 10.7 g/dL (12.0-16.0); LYMPHOCYTES # (AUTO) 0.5 10^3/uL (1.5-3.5); LYMPHOCYTES % (AUTO) 2.8 %; MEAN CORPUSCULAR HEMOGLOBIN 30.6 pg (27.0-31.0); MEAN CORPUSCULAR VOLUME 92.6 fL (81.0-99.0); MEAN PLATELET VOLUME 11.6 fL (7.9-10.8); MONOCYTES # (AUTO) 0.7 10^3/uL (0.0-1.0); MONOCYTES % (AUTO) 4.2 %; NEUTROPHILS # (AUTO) 15.4 10^3/uL (1.5-6.6); NEUTROPHILS % (AUTO) 92.1 %; PLT - PLATELET COUNT 150 10^3/uL (130-450); RED CELL DISTRIBUTION WIDTH 14.2 % (12.0-15.0); WHITE BLOOD COUNT 16.7 x10^3/uL (4.8-10.8)
[2019-10-04 05:47] LABS: CALCIUM 8.4 mg/dL (8.5-10.3); CREATININE 0.6 mg/dL (0.4-1.0)
[2019-10-04] MEDS: FAMOTIDINE 20 MG TABLET PO SCH ×2 (08:28→21:18)
[2019-10-04] MEDS: CEFOTETAN DISODIUM 2 GM in SODIUM CHLORIDE 0.9% MINIBAG 100 ML IV SCH (08:32)
[2019-10-04] MEDS: DONEPEZIL 5 MG TABLET PO SCH (08:32)
--- NOTE | 2019-10-04 09:40 | PROVIDER PROGRESS NOTE ---
Subjective - Prog Note Date Prog Note Date: 10/04/19 Objective - Vital Signs/Intake & Output Vital Signs: Vital Signs x48h Temp Pulse Resp BP Pulse Ox 10/04/19 04:13 36.5 C 70 18 112/66 95 Intake & Output: Intake & Output 10/01/19 10/02/19 10/03/19 10/04/19 23:59 23:59 23:59 23:59 Intake Total 1700 1622.776 450 Output Total 120 125 350 Balance 1580 1497.776 100 - Objective Eyes Bilateral: positive: Normal inspection, PERRL ENT: positive: No signs of dehydration Respiratory: positive: No respiratory distress Abdomen: positive: Non-tender, No distention, Other (dressing clean dry intact) Extremities: positive: No pedal edema - Lab Results Fish Bones: 10/04/19 05:20 10/04/19 05:20 Other Labs: Lab Results x24hrs 10/04/19 10/04/19 10/03/19 Range/Units 05:20 05:20 14:14 WBC 16.7 H (4.8-10.8) x10^3/uL RBC 3.50 L (4.20-5.40) 10^6/uL Hgb 10.7 L (12.0-16.0) g/dL Hct 32.4 L (37.0-47.0) % MCV 92.6 (81.0-99.0) fL MCH 30.6 (27.0-31.0) pg MCHC 33.0 (32.0-36.0) g/dL RDW 14.2 (12.0-15.0) % Plt Count 150 (130-450) 10^3/uL MPV 11.6 H (7.9-10.8) fL Neut # (Auto) 15.4 H (1.5-6.6) 10^3/uL Lymph # (Auto) 0.5 L (1.5-3.5) 10^3/uL [place] # (Auto) 0.7 (0.0-1.0) 10^3/uL Eos # (Auto) 0.0 (0.0-0.7) 10^3/uL Baso # (Auto) 0.0 (0.0-0.1) 10^3/uL Absolute Nucleated RBC 0.00 x10^3/uL Nucleated RBC % 0.0 /100WBC Sodium 133 L (135-145) mmol/L Potassium 3.7 (3.5-5.0) mmol/L Chloride 98 L (101-111) mmol/L Carbon Dioxide 25 (21-32) mmol/L Anion Gap 10.0 (6-13) BUN 9 (6-20) mg/dL Creatinine 0.6 (0.4-1.0) mg/dL Estimated GFR (MDRD) 95 (>89) Glucose 139 H (70-100) mg/dL Calcium 8.4 L (8.5-10.3) mg/dL Blood Type A POSITIVE Blood Type Recheck Antibody Screen NEGATIVE Crossmatch IS Only See Detail 10/03/19 10/03/19 Range/Units 13:57 13:57 WBC (4.8-10.8) x10^3/uL RBC (4.20-5.40) 10^6/uL Hgb 9.9 L (12.0-16.0) g/dL Hct 28.9 L (37.0-47.0) % MCV (81.0-99.0) fL MCH (27.0-31.0) pg MCHC (32.0-36.0) g/dL RDW (12.0-15.0) % Plt Count (130-450) 10^3/uL MPV (7.9-10.8) fL Neut # (Auto) (1.5-6.6) 10^3/uL Lymph # (Auto) (1.5-3.5) 10^3/uL [place] # (Auto) (0.0-1.0) 10^3/uL Eos # (Auto) (0.0-0.7) 10^3/uL Baso # (Auto) (0.0-0.1) 10^3/uL Absolute Nucleated RBC x10^3/uL Nucleated RBC % /100WBC Sodium (135-145) mmol/L Potassium (3.5-5.0) mmol/L Chloride (101-111) mmol/L Carbon Dioxide (21-32) mmol/L Anion Gap (6-13) BUN (6-20) mg/dL Creatinine (0.4-1.0) mg/dL Estimated GFR (MDRD) (>89) Glucose (70-100) mg/dL Calcium (8.5-10.3) mg/dL Blood Type Blood Type Recheck A POSITIVE Antibody Screen Crossmatch IS Only Assessment/Plan - Problem List (1) Acute lower GI bleeding Impression: post op day 1 subtotal colectomy for gi bleed. doing well. continue present care. gutiérrez out today
--- NOTE | 2019-10-04 11:14 | PROVIDER PROGRESS NOTE ---
Assessment/Plan - Problem List (1) Status post colectomy Assessment/Plan: 09/28 Patient is status post of subtotal colectomy day 1, Patient tolerated of full liquid diet, but the patient did not pass gas or bowel movement yet. We will continue follow-up with her surgeon, continue pain control, continue out the bed with activity, continue incentive spirometery. (2) Acute lower GI bleeding Assessment/Plan: 61, patient hemoglobin slightly increased to10.7 today. patient denies any more GI bleed, patient is s/p of colectomy, we will continue monitor patient hemoglobin. (3) Anemia due to GI blood loss Assessment/Plan: 611, Patient's hemoglobin is 10.7, stable, patient denies any more GI bleed, we will continue monitor patient if GI bleed (4) Lung mass Assessment/Plan: 09/28, patient And her family knew she has a lung mass, patient had palliative care consult on yesterday, patient had a surgery on yesterday for her GI bleed, we will continue supportive for patient, consult with outreach and education social worker for pt's continuing care and safely d/c plan. (5) Lymphadenopathy, retroperitoneal Assessment/Plan: 09/28, patient know lymphadenopathy at her retroperitoneal. continue support pt. (6) Hypokalemia Assessment/Plan: Result (7) Hyponatremia Assessment/Plan: Sodium is 133, Continue with IV saline hydration. Follow BMP daily (8) Hx of essential hypertension Assessment/Plan: Patient blood pressure is normal (9) Dementia Assessment/Plan: Chronic, She was on donezepil before this admission, continue Donezepil. (9)neutrocytosis/leukocytosis Patient has WBC 17,But the patient has no fever, patient's abdomen pain is good control. patient is status post surgery on yesterday, it could be reactive or stress to cause her to have leukocytosis or leukocytosis, patient had antibiotic finished today, It is unlikely patient has ongoing infection, will continue monitor CBC, and vital monitor - Current Meds Current Meds: Current Medications Generic Name Dose Route Start Last Admin Trade Name Freq PRN Reason Stop Dose Admin Carboxymethylcellulose 1 drops 10/02/19 23:28 10/03/19 05:41 Refresh 1% Ophth Drops EACHEYE 1 drops PRN PRN Administration Dry Eye Donepezil HCl 5 mg 10/03/19 10:30 10/04/19 08:32 Aricept PO 5 mg DAILY TASHIA Administration Famotidine 20 mg 10/03/19 21:00 10/04/19 08:28 Pepcid PO 20 mg BID TASHIA Administration Hydromorphone HCl 0.5 mg 10/03/19 19:12 10/04/19 08:33 Dilaudid Inj Syringe IVP 0.5 mg Q2H PRN Administration PAIN Lactated Ringer's 1,000 mls @ 50 mls/hr 10/03/19 20:00 10/03/19 20:15 Lr IV 50 mls/hr .Q20H TASHIA Administration Oxybutynin Chloride 5 mg 10/02/19 21:00 10/03/19 22:10 Ditropan PO Not Given QPM TASHIA Oxycodone HCl 5 mg 10/03/19 19:12 10/04/19 08:33 Roxicodone PO 5 mg Q4HR PRN Administration PAIN Sodium Chloride 10 ml 10/02/19 11:05 10/03/19 00:01 Normal Saline Flush 0.9% IVP 10 ml PRN PRN Administration NEEDED PER PROVIDER ORDERS Sodium Chloride 10 ml 10/02/19 17:00 10/04/19 04:41 Normal Saline Flush 0.9% IVP 10 ml 0100,0900,1700 TASHIA Administration - Lab Result Fish Bone Diagrams: 10/04/19 05:20 10/04/19 05:20 - Additional Planning My Orders: My Active Orders 10/05/19 05:00 BMP - BASIC METABOLIC PANEL [CHEM] DAILYLAB CBC - COMP BLD CT W/AUTO DIFF [HEME] DAILYLAB 10/06/19 05:00 BMP - BASIC METABOLIC PANEL [CHEM] DAILYLAB CBC - COMP BLD CT W/AUTO DIFF [HEME] DAILYLAB 10/07/19 05:00 BMP - BASIC METABOLIC PANEL [CHEM] DAILYLAB CBC - COMP BLD CT W/AUTO DIFF [HEME] DAILYLAB 10/08/19 05:00 BMP - BASIC METABOLIC PANEL [CHEM] DAILYLAB CBC - COMP BLD CT W/AUTO DIFF [HEME] DAILYLAB Subjective - Subjective Patient Reports: Feeling Better Objective Vital Signs: Vital Signs - 24 hr 10/03/19 10/03/19 10/03/19 12:00 12:17 18:40 Temperature 36.5 C 36.1 C L Heart Rate 64 Heart Rate [ 68 66 Brachial] Respiratory 20 14 Rate Blood Pressure 142/74 H Blood Pressure [Left Brachial artery] Blood Pressure 175/65 H 138/77 H [Right Brachial artery] O2 Saturation 97 99 10/03/19 10/03/19 10/03/19 18:45 18:50 18:55 Temperature Heart Rate 72 94 75 Heart Rate [ Brachial] Respiratory 19 19 16 Rate Blood Pressure 156/86 H 175/95 H 151/103 H Blood Pressure [Left Brachial artery] Blood Pressure [Right Brachial artery] O2 Saturation 100 97 94 10/03/19 10/03/19 10/03/19 19:00 19:08 19:14 Temperature 36.6 C Heart Rate 85 78 77 Heart Rate [ Brachial] Respiratory 22 12 14 Rate Blood Pressure 167/81 H 156/87 H 131/91 H Blood Pressure [Left Brachial artery] Blood Pressure [Right Brachial artery] O2 Saturation 95 91 L 98 10/03/19 10/03/19 10/03/19 19:18 19:23 19:32 Temperature 36.6 C Heart Rate 67 61 100 Heart Rate [ Brachial] Respiratory 10 L 11 L 20 Rate Blood Pressure 133/72 H 125/82 H 178/88 H Blood Pressure [Left Brachial artery] Blood Pressure [Right Brachial artery] O2 Saturation 93 97 95 10/03/19 10/03/19 10/03/19 19:39 19:45 20:13 Temperature 36 C L 35.7 C L Heart Rate 80 Heart Rate [ 68 68 Brachial] Respiratory 13 14 16 Rate Blood Pressure 135/68 H Blood Pressure [Left Brachial artery] Blood Pressure 141/68 H 128/53 L [Right Brachial artery] O2 Saturation 95 95 96 10/03/19 10/03/19 10/03/19 21:18 21:41 22:14 Temperature 95.6 C H 95.5 C H Heart Rate Heart Rate [ 62 62 84 Brachial] Respiratory 16 16 Rate Blood Pressure Blood Pressure [Left Brachial artery] Blood Pressure 98/55 L 105/51 L 107/48 L [Right Brachial artery] O2 Saturation 95 94 10/04/19 10/04/19 10/04/19 00:13 04:13 08:00 Temperature 36.5 C 36.4 C L Heart Rate Heart Rate [ 76 70 60 Brachial] Respiratory 18 18 18 Rate Blood Pressure Blood Pressure 103/52 L 112/66 [Left Brachial artery] Blood Pressure 121/72 [Right Brachial artery] O2 Saturation 98 95 95 Oxygen O2 Source Room air I&O (Last 24 Hrs): Intake and Output Totals x24h 10/02/19 10/03/19 10/04/19 23:59 23:59 23:59 Intake Total 1700 9198.554 3151 Output Total 120 125 350 Balance 1580 3377.096 5941 General: Alert, No acute distress HEENT: Atraumatic Neck: Supple Lymphatic: no adenopathy Neuro: Alert, Non Focal Cardiovascular: Regular rate, Normal S1, Normal S2 Respiratory: Chest non-tender, No respiratory distress, Breath sounds nml Abdomen: Normal bowel sounds, Soft Extremities: Normal pulses - Results Results: Laboratory Results WBC 16.7 x10^3/uL (4.8-10.8) H 10/04/19 05:20 RBC 3.50 10^6/uL (4.20-5.40) L 10/04/19 05:20 Hgb 10.7 g/dL (12.0-16.0) L 10/04/19 05:20 Hct 32.4 % (37.0-47.0) L 10/04/19 05:20 MCV 92.6 fL (81.0-99.0) 10/04/19 05:20 MCH 30.6 pg (27.0-31.0) 10/04/19 05:20 MCHC 33.0 g/dL (32.0-36.0) 10/04/19 05:20 RDW 14.2 % (12.0-15.0) 10/04/19 05:20 Plt Count 150 10^3/uL (130-450) 10/04/19 05:20 MPV 11.6 fL (7.9-10.8) H 10/04/19 05:20 Neut # (Auto) 15.4 10^3/uL (1.5-6.6) H 10/04/19 05:20 Lymph # (Auto) 0.5 10^3/uL (1.5-3.5) L 10/04/19 05:20 [place] # (Auto) 0.7 10^3/uL (0.0-1.0) 06/16/20 05:20 Eos # (Auto) 0.0 10^3/uL (0.0-0.7) 10/04/19 05:20 Baso # (Auto) 0.0 10^3/uL (0.0-0.1) 10/04/19 05:20 Absolute Nucleated RBC 0.00 x10^3/uL 10/04/19 05:20 Nucleated RBC % 0.0 /100WBC 10/04/19 05:20 PT 13.0 secs (9.9-12.6) H 10/02/19 06:55 INR 1.1 (0.8-1.2) 10/02/19 06:55 APTT 28.5 secs (24.9-33.3) 10/02/19 06:55 Sodium 133 mmol/L (135-145) L 10/04/19 05:20 Potassium 3.7 mmol/L (3.5-5.0) 10/04/19 05:20 Chloride 98 mmol/L (101-111) L 10/04/19 05:20 Carbon Dioxide 25 mmol/L (21-32) 10/04/19 05:20 Anion Gap 10.0 (6-13) 10/04/19 05:20 BUN 9 mg/dL (6-20) 10/04/19 05:20 Creatinine 0.6 mg/dL (0.4-1.0) 10/04/19 05:20 Estimated GFR (MDRD) 95 (>89) 10/04/19 05:20 Glucose 139 mg/dL (70-100) H 10/04/19 05:20 Calcium 8.4 mg/dL (8.5-10.3) L 10/04/19 05:20 Magnesium 1.9 mg/dL (1.7-2.8) 10/02/19 14:10 Total Bilirubin 0.9 mg/dL (0.2-1.0) 10/02/19 06:55 AST 18 IU/L (10-42) 10/02/19 06:55 ALT 13 IU/L (10-60) 10/02/19 06:55 Alkaline Phosphatase 61 IU/L (42-121) 10/02/19 06:55 Total Protein 6.9 g/dL (6.7-8.2) 10/02/19 06:55 Albumin 4.2 g/dL (3.2-5.5) 10/02/19 06:55 Globulin 2.7 g/dL (2.1-4.2) 10/02/19 06:55 Albumin/Globulin Ratio 1.6 (1.0-2.2) 10/02/19 06:55 Lipase 27 U/L (22-51) 10/02/19 06:55 Urine Color YELLOW 10/02/19 17:15 Urine Clarity CLEAR (CLEAR) 10/02/19 17:15 Urine pH 7.0 PH (5.0-7.5) 10/02/19 17:15 Ur Specific [place] 1.010 (1.002-1.030) 10/02/19 17:15 Urine Protein NEGATIVE mg/dL (NEGATIVE) 10/02/19 17:15 Urine Glucose (UA) NEGATIVE mg/dL (NEGATIVE) 10/02/19 17:15 Urine Ketones TRACE mg/dL (NEGATIVE) 10/02/19 17:15 Urine Occult Blood SMALL (NEGATIVE) H 10/02/19 17:15 Urine Nitrite NEGATIVE (NEGATIVE) 10/02/19 17:15 Urine Bilirubin NEGATIVE (NEGATIVE) 10/02/19 17:15 Urine Urobilinogen 0.2 (NORMAL) E.U./dL (NORMAL) 10/02/19 17:15 Ur Leukocyte Esterase NEGATIVE (NEGATIVE) 10/02/19 17:15 Urine RBC 0-5 /HPF (0-5) 10/02/19 17:15 Urine WBC 0-3 /HPF (0-5) 10/02/19 17:15 Ur Squamous Epith Cells NONE SEEN (<= Few) 10/02/19 17:15 Urine Bacteria None Seen /HPF (None Seen) 10/02/19 17:15 Ur Microscopic Review INDICATED 10/02/19 17:15 Urine Culture Comments NOT INDICATED 10/02/19 17:15 Blood Type A POSITIVE 10/03/19 14:14 Blood Type Recheck A POSITIVE 10/03/19 13:57 Antibody Screen NEGATIVE 10/03/19 14:14 Crossmatch IS Only See Detail 10/03/19 14:14 Sepsis Event Note (H) - Evaluation Current Stage of Sepsis: Ruled out ABX Reporting Has patient been on IV antibiotics over the past 48 hours?: No Current Medications - Current Medications Current Medications: Active Medications Acetaminophen (Tylenol) 650 mg PO Q4HR PRN PRN Reason: Pain 1 to 4 Carboxymethylcellulose (Refresh 1% Ophth Drops) 1 drops EACHEYE PRN PRN PRN Reason: Dry Eye Last Admin: 10/03/19 05:41 Dose: 1 drops Donepezil HCl (Aricept) 5 mg PO DAILY [facility] Last Admin: 10/04/19 08:32 Dose: 5 mg Famotidine (Pepcid) 20 mg PO BID [facility] Last Admin: 10/04/19 08:28 Dose: 20 mg Hydromorphone HCl (Dilaudid Inj Syringe) 0.5 mg IVP Q2H PRN PRN Reason: PAIN Last Admin: 10/04/19 08:33 Dose: 0.5 mg Lactated Ringer's (Lr) 1,000 mls @ 50 mls/hr IV .Q20H [facility] Last Admin: 10/03/19 20:15 Dose: 50 mls/hr Ondansetron HCl (Zofran Inj) 4 mg IVP Q6HR PRN PRN Reason: Nausea / Vomiting Oxybutynin Chloride (Ditropan) 5 mg PO QPM [facility] Last Admin: 10/03/19 22:10 Dose: Not Given Oxycodone HCl (Roxicodone) 5 mg PO Q4HR PRN PRN Reason: PAIN Last Admin: 10/04/19 08:33 Dose: 5 mg Prochlorperazine Maleate (Compazine) 5 mg PO Q6HR PRN PRN Reason: Nausea / Vomiting Sodium Chloride (Normal Saline Flush 0.9%) 10 ml IVP PRN PRN PRN Reason: NEEDED PER PROVIDER ORDERS Last Admin: 10/03/19 00:01 Dose: 10 ml Sodium Chloride (Normal Saline Flush 0.9%) 10 ml IVP 0100,0900,1700 [facility] Last Admin: 10/04/19 04:41 Dose: 10 ml Amlodipine Besylate 5 mg PO DAILY 11/17/15 Aspirin EC [Ecotrin] 325 mg PO DAILY 10/02/19 Calcium Carbonate [Calcium] 600 mg PO DAILY 10/02/19 Donepezil [Aricept] 5 mg PO QPM 10/02/19 Lisinopril/Hydrochlorothiazide [Lisinopril-Hctz 20-12.5 mg Tab] 2 each PO DAILY 10/02/19 Oxybutynin [Ditropan] 5 mg PO QPM 10/02/19 Pravastatin [Pravachol] 40 mg PO DAILY 10/02/19
[2019-10-04] MEDS ORDERED: ROCURONIUM 50 MG/5 ML VIAL IVP ONE (11:40)
[2019-10-04] MEDS ORDERED: LIDOCAINE-MPF 2% 5 ML VIAL IM ONE (11:42)
[2019-10-04] MEDS ORDERED: DEXAMETHASONE 4 MG/ML VIAL IVP ONE (11:42)
[2019-10-04] MEDS ORDERED: ONDANSETRON 4 MG/2 ML VIAL IVP ONE (11:42)
[2019-10-04] MEDS ORDERED: HYDROmorphone 1 MG/ML CARPUJECT IVP ONE (11:42)
[2019-10-04] MEDS ORDERED: fentaNYL 100 MCG/2 ML VIAL IVP ONE (11:42)
[2019-10-04] MEDS ORDERED: ePHEDrine 50 MG/ML VIAL IVP ONE (11:42)
[2019-10-04] MEDS ORDERED: ACETAMINOPHEN 1,000 MG/100 ML 100 ML IV ONE (11:42)
[2019-10-04] MEDS: ONDANSETRON 4 MG/2 ML VIAL IVP PRN ×2 (12:27→18:37)
[2019-10-04] MEDS: PROCHLORPERAZINE 5 MG TABLET PO PRN (14:41)
[2019-10-04] MEDS: LACTATED RINGERS 1,000 ML IV SCH (16:35)
[2019-10-04] MEDS ORDERED: D5.45NS W/20 MEQ KCL 1,000 ML IV STA ×2 (17:58→18:02)
[2019-10-04] MEDS: SODIUM CHLORIDE FLUSH 0.9% 10 ML SYRINGE IVP PRN ×2 (18:37→19:15)
[2019-10-04 20:14] LABS: HGB - HEMOGLOBIN 10.2 g/dL (12.0-16.0)
[2019-10-04] MEDS: OXYBUTYNIN 5MG TABLET PO SCH (21:18)
[2019-10-05] MEDS: SODIUM CHLORIDE FLUSH 0.9% 10 ML SYRINGE IVP SCH ×4 (01:04→23:38)
[2019-10-05 05:55] LABS: BASOPHILS % (AUTO) 0.4 %; EOSINOPHILS % (AUTO) 0.2 %; HGB - HEMOGLOBIN 10.1 g/dL (12.0-16.0); LYMPHOCYTES # (AUTO) 0.9 10^3/uL (1.5-3.5); LYMPHOCYTES % (AUTO) 9.3 %; MEAN CORPUSCULAR HEMOGLOBIN 31.7 pg (27.0-31.0); MEAN CORPUSCULAR HGB CONC 34.1 g/dL (32.0-36.0); MEAN CORPUSCULAR VOLUME 92.8 fL (81.0-99.0); MEAN PLATELET VOLUME 11.7 fL (7.9-10.8); MONOCYTES # (AUTO) 0.7 10^3/uL (0.0-1.0); MONOCYTES % (AUTO) 6.4 %; NEUTROPHILS # (AUTO) 8.4 10^3/uL (1.5-6.6); NEUTROPHILS % (AUTO) 83.2 %; PLT - PLATELET COUNT 161 10^3/uL (130-450); RED BLOOD COUNT 3.19 10^6/uL (4.20-5.40); RED CELL DISTRIBUTION WIDTH 14.4 % (12.0-15.0); WHITE BLOOD COUNT 10.1 x10^3/uL (4.8-10.8)
[2019-10-05] MEDS: oxyCODONE 5 MG TABLET PO PRN (06:21)
[2019-10-05 06:25] LABS: CALCIUM 8.8 mg/dL (8.5-10.3); CREATININE 0.5 mg/dL (0.4-1.0)
[2019-10-05] MEDS: DONEPEZIL 5 MG TABLET PO SCH (08:05)
[2019-10-05] MEDS: FAMOTIDINE 20 MG TABLET PO SCH ×2 (08:05→20:03)
--- NOTE | 2019-10-05 10:11 | PROVIDER PROGRESS NOTE ---
Subjective - Prog Note Date Prog Note Date: 10/05/19 - Subjective Pt reports feeling: Improved (nausea much improved. starting to have bowel activity. tolerating diet) Objective - Vital Signs/Intake & Output Vital Signs: Vital Signs x48h Temp Pulse Resp BP Pulse Ox 10/05/19 09:00 36.6 C 67 18 144/69 H 93 10/05/19 05:25 36.7 C 82 16 159/69 H 98 Intake & Output: Intake & Output 10/02/19 10/03/19 10/04/19 10/05/19 23:59 23:59 23:59 23:59 Intake Total 1700 6133.137 7704 390 Output Total 120 223 956 0112 Balance 1580 6806.301 6704 -941 - Objective General Appearance: positive: No acute distress, Alert Eyes Bilateral: positive: Normal inspection, PERRL, EOMI Neck: positive: No JVD Respiratory: positive: No respiratory distress Abdomen: positive: Non-tender, Other (mild distension but soft. dressing c/d/i) - Lab Results Fish Bones: 10/05/19 05:20 10/05/19 06:10 Other Labs: Lab Results x24hrs 10/05/19 10/05/19 10/04/19 Range/Units 06:10 05:20 21:37 WBC 10.1 (4.8-10.8) x10^3/uL RBC 3.19 L (4.20-5.40) 10^6/uL Hgb 10.1 L (12.0-16.0) g/dL Hct 29.6 L (37.0-47.0) % MCV 92.8 (81.0-99.0) fL MCH 31.7 H (27.0-31.0) pg MCHC 34.1 (32.0-36.0) g/dL RDW 14.4 (12.0-15.0) % Plt Count 161 (130-450) 10^3/uL MPV 11.7 H (7.9-10.8) fL Neut # (Auto) 8.4 H (1.5-6.6) 10^3/uL Lymph # (Auto) 0.9 L (1.5-3.5) 10^3/uL [place] # (Auto) 0.7 (0.0-1.0) 10^3/uL Eos # (Auto) 0.0 (0.0-0.7) 10^3/uL Baso # (Auto) 0.0 (0.0-0.1) 10^3/uL Absolute Nucleated RBC 0.00 x10^3/uL Nucleated RBC % 0.0 /100WBC Sodium 130 L (135-145) mmol/L Potassium 3.4 L (3.5-5.0) mmol/L Chloride 92 L (101-111) mmol/L Carbon Dioxide 28 (21-32) mmol/L Anion Gap 10.0 (6-13) BUN 7 (6-20) mg/dL Creatinine 0.5 (0.4-1.0) mg/dL Estimated GFR (MDRD) 117 (>89) Glucose 112 H (70-100) mg/dL POC Whole Bld Glucose 151 H (70 - 100) mg/dL Calcium 8.8 (8.5-10.3) mg/dL 10/04/19 10/04/19 10/04/19 Range/Units 20:07 16:26 12:46 WBC (4.8-10.8) x10^3/uL RBC (4.20-5.40) 10^6/uL Hgb 10.2 L (12.0-16.0) g/dL Hct 30.7 L (37.0-47.0) % MCV (81.0-99.0) fL MCH (27.0-31.0) pg MCHC (32.0-36.0) g/dL RDW (12.0-15.0) % Plt Count (130-450) 10^3/uL MPV (7.9-10.8) fL Neut # (Auto) (1.5-6.6) 10^3/uL Lymph # (Auto) (1.5-3.5) 10^3/uL [place] # (Auto) (0.0-1.0) 10^3/uL Eos # (Auto) (0.0-0.7) 10^3/uL Baso # (Auto) (0.0-0.1) 10^3/uL Absolute Nucleated RBC x10^3/uL Nucleated RBC % /100WBC Sodium (135-145) mmol/L Potassium (3.5-5.0) mmol/L Chloride (101-111) mmol/L Carbon Dioxide (21-32) mmol/L Anion Gap (6-13) BUN (6-20) mg/dL Creatinine (0.4-1.0) mg/dL Estimated GFR (MDRD) (>89) Glucose (70-100) mg/dL POC Whole Bld Glucose 126 H 155 H (70 - 100) mg/dL Calcium (8.5-10.3) mg/dL 10/04/19 10/03/19 Range/Units 07:59 21:20 WBC (4.8-10.8) x10^3/uL RBC (4.20-5.40) 10^6/uL Hgb (12.0-16.0) g/dL Hct (37.0-47.0) % MCV (81.0-99.0) fL MCH (27.0-31.0) pg MCHC (32.0-36.0) g/dL RDW (12.0-15.0) % Plt Count (130-450) 10^3/uL MPV (7.9-10.8) fL Neut # (Auto) (1.5-6.6) 10^3/uL Lymph # (Auto) (1.5-3.5) 10^3/uL [place] # (Auto) (0.0-1.0) 10^3/uL Eos # (Auto) (0.0-0.7) 10^3/uL Baso # (Auto) (0.0-0.1) 10^3/uL Absolute Nucleated RBC x10^3/uL Nucleated RBC % /100WBC Sodium (135-145) mmol/L Potassium (3.5-5.0) mmol/L Chloride (101-111) mmol/L Carbon Dioxide (21-32) mmol/L Anion Gap (6-13) BUN (6-20) mg/dL Creatinine (0.4-1.0) mg/dL Estimated GFR (MDRD) (>89) Glucose (70-100) mg/dL POC Whole Bld Glucose 109 H 138 H (70 - 100) mg/dL Calcium (8.5-10.3) mg/dL Sepsis Event Note (H) - Evaluation Current Stage of Sepsis: Ruled out Assessment/Plan - Problem List (1) Acute lower GI bleeding Impression: doing well . home in day or two when abdomen less distended
--- NOTE | 2019-10-05 13:20 | CONSULTATION NOTE ---
Palliative Care Follow Up - Referral Referring Provider: Deanna White MD Time of Visit: [id number] Referral setting: Hospitalized patient Referral Reason: GI Bleeding/lung mass/Goals of care - Information Sources Records reviewed: RN notes reviewed, Previous records reviewed History/Review of Systems obtained from: Patient Exam limitations: No limitations - History of Present Illness Update Brief HPI Update: This is an 84-year-old woman on 10/02 for goals of care conversation. Patient presented with GI bleed, with continued passing of blood, resulting in need for acute intervention. Concern patient was going to need most likely colostomy, and patient had hesitation given her age and concerns about managing long-term. Patient though it identified her quality of life is fairly good, and after much discussion of weighing benefits and burdens decided to proceed. She did not need a colostomy, but did get a subtotal colectomy, and takedown of the splenic flexure. It was found she had a lower GI bleed, with significant diverticulosis, sigmoid volvulus, and bleeding in her right colon. There was no mention of lymph nodes, her CT scan had showed retroperitoneal adenopathy with concern for neoplasm, and the other finding was a right lower lobe spiculated nodule. Patient does remember our conversation, she does have mild dementia which manifests as STM issues and having some feelings still of feeling overwhelmed with all the activity. She does report she has some pulling and pain on her right abdomen, she does have some mild distention, and tender to palpation. She denies any pain at rest, she dislikes lunch, but otherwise says she has some anorexia, but is been encouraged to eat and drink. She is feeling tired, looking forward to transitioning home, has not had a bowel movement or moving gas yet. She does have decreased bowel tones, but has been up ambulating. Social History - Living Situation Living arrangement: Assisted living Living Situation: Alone Support System: She lives at [facility], on independent living. She may need some assistance at least for a few days, I did speak with her [id number] Waleska, They are quite elderly, they are also willing to take her home for a few days if needed. Waleska does oversees patient's finances, and feels would be able to increase care if needed. Patient reports she oversees her own healthcare and decisions, but does depend on her brother and [id number] for support and assistance. Medications/Allergies - Medications Active Medication List: Active Medications Acetaminophen (Tylenol) 650 mg PO Q4HR PRN PRN Reason: Pain 1 to 4 Last Admin: 10/04/19 12:26 Dose: 650 mg Documented by: Carboxymethylcellulose (Refresh 1% Ophth Drops) 1 drops EACHEYE PRN PRN PRN Reason: Dry Eye Last Admin: 10/03/19 05:41 Dose: 1 drops Documented by: Donepezil HCl (Aricept) 5 mg PO DAILY [facility] Last Admin: 10/05/19 08:05 Dose: 5 mg Documented by: Famotidine (Pepcid) 20 mg PO BID [facility] Last Admin: 10/05/19 08:05 Dose: 20 mg Documented by: Hydromorphone HCl (Dilaudid Inj Syringe) 0.5 mg IVP Q2H PRN PRN Reason: PAIN Last Admin: 10/04/19 19:14 Dose: 0.5 mg Documented by: Potassium Chloride/Dextrose/Sod Cl (D5.45ns W/20 Meq Kcl) 1,000 mls @ 50 mls/hr IV .Q20H STA Stop: 10/05/19 13:57 Last Infusion: 10/05/19 12:24 Dose: Infused Documented by: Ondansetron HCl (Zofran Inj) 4 mg IVP Q6HR PRN PRN Reason: Nausea / Vomiting Last Admin: 10/04/19 18:37 Dose: 4 mg Documented by: Oxybutynin Chloride (Ditropan) 5 mg PO QPM [facility] Last Admin: 10/04/19 21:18 Dose: 5 mg Documented by: Oxycodone HCl (Roxicodone) 5 mg PO Q4HR PRN PRN Reason: PAIN Last Admin: 10/05/19 06:21 Dose: 5 mg Documented by: Prochlorperazine Maleate (Compazine) 5 mg PO Q6HR PRN PRN Reason: Nausea / Vomiting Last Admin: 10/04/19 14:41 Dose: 5 mg Documented by: Sodium Chloride (Normal Saline Flush 0.9%) 10 ml IVP PRN PRN PRN Reason: NEEDED PER PROVIDER ORDERS Last Admin: 10/04/19 19:15 Dose: 10 ml Documented by: Sodium Chloride (Normal Saline Flush 0.9%) 10 ml IVP 0100,0900,1700 TASHIA Last Admin: 10/05/19 01:04 Dose: Not Given Documented by: Amlodipine Besylate 5 mg PO DAILY 11/17/15 Aspirin EC [Ecotrin] 325 mg PO DAILY 10/02/19 Calcium Carbonate [Calcium] 600 mg PO DAILY 10/02/19 Donepezil [Aricept] 5 mg PO QPM 10/02/19 Lisinopril/Hydrochlorothiazide [Lisinopril-Hctz 20-12.5 mg Tab] 2 each PO DAILY 10/02/19 Oxybutynin [Ditropan] 5 mg PO QPM 10/02/19 Pravastatin [Pravachol] 40 mg PO DAILY 10/02/19 - Allergies Allergies/Adverse Reactions: Allergies Allergy/AdvReac Type Severity Reaction Status Date / Time Sulfa (Sulfonamide AdvReac Unknown Verified 11/17/15 16:42 Antibiotics) Review of Systems - Constitutional Constitutional: reports: Fatigue, Poor appetite. denies: Fever, Chills - Ears, Nose & Throat Ears, Nose & Throat: denies: Sore throat - Cardiovascular Cardiovascular: reports: Lightheadedness. denies: Chest pain - Respiratory Respiratory: denies: Cough, SOB at rest - Gastrointestinal Gastrointestinal: reports: Abdominal pain (with movement;), Abdominal distention, Bloating, Poor appetite, Early satiety. denies: Nausea - Genitourinary Genitourinary: denies: Incontinence - Musculoskeletal Musculoskeletal: reports: Stiffness, Muscle weakness - Integumentary Integumentary: reports: Dryness - Neurological Neurological: reports: General weakness, Memory problems (mild) - Psychiatric Psychiatric: denies: Depression, Anxiety - Hematologic/Lymphatic Hematologic/Lymphatic: reports: Anemia. denies: Recurrent infections - All Other Systems All Other Systems: reports: Reviewed and negative Physical Exam - Vital Signs Vital Signs: Vital Signs x48h Temp Pulse Pulse Pulse Pulse Resp BP 10/05/19 11:45 36.6 C 74 18 10/05/19 10:35 87 84 181/98 H 10/05/19 09:00 36.6 C 67 18 10/05/19 05:25 36.7 C 82 16 BP BP Pulse Ox 10/05/19 11:45 92 10/05/19 10:35 171/81 H 10/05/19 09:00 144/69 H 93 10/05/19 05:25 159/69 H 98 - Physical Exam General Appearance: positive: No acute distress, Alert Eyes Bilateral: positive: Normal inspection ENT: positive: No signs of dehydration Neck: positive: Trachea midline Cardiovascular: positive: Regular rate & rhythm Respiratory: positive: No respiratory distress Abdomen: positive: Abnml bowel sounds (sluggish), Tenderness (tender with palpation), Guarding, Distended Skin: positive: Pallor, Dryness Extremities: positive: No pedal edema (has scds on) Neurologic/Psychiatric: positive: Oriented x3, Mood/affect nml, Flat affect Palliative Care - POLST Patient has POLST: Yes POLST Status: DNR, Selective Treatment Pain: Pain improved, Location (surgical abdominal pain;), Severity (3/10) Tiredness/Fatigue: Moderate (4-6) Drowsiness/Sedation: Moderate (4-6) Nausea: None Anorexia: Moderate (4-6) Dyspnea: None Depression: None Anxiety: Mild (1-3) Feelings of wellbeing/Perceived Quality of Life: Fair, Acceptable, Improved Sleep: Variable sleep pattern Constipation: Comment (no stool yet) Performance Status: Patient reports at baseline she is ambulatory with her cane, she does do her laundry and attends to her own ADLs. She has been standby assist for toileting here at the hospital, she has been working with physical therapy, she is feeling about "35%" of her usual functional status. - Palliative Care Discussion: Discussed patient's current feelings and concerns regarding her situation, she is quite thankful not to have had a colostomy. She did share that you make the best decision you can in the time, and she is very grateful for how it turned out. We did discuss in the context of needing to further follow-up regarding some of the concerns noted on her CT scan, with the lung mass. We discussed none of this is urgent, and can be discussed with her primary care particularly as we get more information from pathology and follow-up from surgeon. Patient is feeling overwhelmed by the whole hospital experience, she is feeling quite tired and just wants to rest. We discussed there were no further conversations or decisions to be made, these can be revisited at a later time when she is feeling better and more up to par. Did introduce the role of palliative care, if she were to need further support in any decision making in the future or had concerns, her primary care could make an outpatient referral. I did leave my card and information for her in the future. Results - Lab Results Lab results reviewed: Yes Fish Bones: 10/05/19 05:20 10/05/19 06:10 Lab and Imaging Results: Lab Results x24hrs 10/05/19 10/05/19 10/04/19 Range/Units 06:10 05:20 21:37 WBC 10.1 (4.8-10.8) x10^3/uL RBC 3.19 L (4.20-5.40) 10^6/uL Hgb 10.1 L (12.0-16.0) g/dL Hct 29.6 L (37.0-47.0) % MCV 92.8 (81.0-99.0) fL MCH 31.7 H (27.0-31.0) pg MCHC 34.1 (32.0-36.0) g/dL RDW 14.4 (12.0-15.0) % Plt Count 161 (130-450) 10^3/uL MPV 11.7 H (7.9-10.8) fL Neut # (Auto) 8.4 H (1.5-6.6) 10^3/uL Lymph # (Auto) 0.9 L (1.5-3.5) 10^3/uL [place] # (Auto) 0.7 (0.0-1.0) 10^3/uL Eos # (Auto) 0.0 (0.0-0.7) 10^3/uL Baso # (Auto) 0.0 (0.0-0.1) 10^3/uL Absolute Nucleated RBC 0.00 x10^3/uL Nucleated RBC % 0.0 /100WBC Sodium 130 L (135-145) mmol/L Potassium 3.4 L (3.5-5.0) mmol/L Chloride 92 L (101-111) mmol/L Carbon Dioxide 28 (21-32) mmol/L Anion Gap 10.0 (6-13) BUN 7 (6-20) mg/dL Creatinine 0.5 (0.4-1.0) mg/dL Estimated GFR (MDRD) 117 (>89) Glucose 112 H (70-100) mg/dL POC Whole Bld Glucose 151 H (70 - 100) mg/dL Calcium 8.8 (8.5-10.3) mg/dL 10/04/19 10/04/19 10/04/19 Range/Units 20:07 16:26 12:46 WBC (4.8-10.8) x10^3/uL RBC (4.20-5.40) 10^6/uL Hgb 10.2 L (12.0-16.0) g/dL Hct 30.7 L (37.0-47.0) % MCV (81.0-99.0) fL MCH (27.0-31.0) pg MCHC (32.0-36.0) g/dL RDW (12.0-15.0) % Plt Count (130-450) 10^3/uL MPV (7.9-10.8) fL Neut # (Auto) (1.5-6.6) 10^3/uL Lymph # (Auto) (1.5-3.5) 10^3/uL [place] # (Auto) (0.0-1.0) 10^3/uL Eos # (Auto) (0.0-0.7) 10^3/uL Baso # (Auto) (0.0-0.1) 10^3/uL Absolute Nucleated RBC x10^3/uL Nucleated RBC % /100WBC Sodium (135-145) mmol/L Potassium (3.5-5.0) mmol/L Chloride (101-111) mmol/L Carbon Dioxide (21-32) mmol/L Anion Gap (6-13) BUN (6-20) mg/dL Creatinine (0.4-1.0) mg/dL Estimated GFR (MDRD) (>89) Glucose (70-100) mg/dL POC Whole Bld Glucose 126 H 155 H (70 - 100) mg/dL Calcium (8.5-10.3) mg/dL 10/04/19 10/03/19 Range/Units 07:59 21:20 WBC (4.8-10.8) x10^3/uL RBC (4.20-5.40) 10^6/uL Hgb (12.0-16.0) g/dL Hct (37.0-47.0) % MCV (81.0-99.0) fL MCH (27.0-31.0) pg MCHC (32.0-36.0) g/dL RDW (12.0-15.0) % Plt Count (130-450) 10^3/uL MPV (7.9-10.8) fL Neut # (Auto) (1.5-6.6) 10^3/uL Lymph # (Auto) (1.5-3.5) 10^3/uL [place] # (Auto) (0.0-1.0) 10^3/uL Eos # (Auto) (0.0-0.7) 10^3/uL Baso # (Auto) (0.0-0.1) 10^3/uL Absolute Nucleated RBC x10^3/uL Nucleated RBC % /100WBC Sodium (135-145) mmol/L Potassium (3.5-5.0) mmol/L Chloride (101-111) mmol/L Carbon Dioxide (21-32) mmol/L Anion Gap (6-13) BUN (6-20) mg/dL Creatinine (0.4-1.0) mg/dL Estimated GFR (MDRD) (>89) Glucose (70-100) mg/dL POC Whole Bld Glucose 109 H 138 H (70 - 100) mg/dL Calcium (8.5-10.3) mg/dL Impression and Recommendations - Palliative Care Impression: This is an 84-year-old woman who presented with lower GI bleed, now with subtotal colectomy, and POD #2. Patient is thankful not to have a colostomy, s till concerns regarding CT scan findings, though these can be followed up on a outpatient basis. Patient presents with fatigue, and continues to feel overwhelmed. Palliative care providing support, available in the future if needs arise. Recommendations/Counseling Done: 1. GI bleed. Patient remains anemic, she did receive 1 unit of blood during surgery. Patient received subtotal colectomy, and is on POD #2. Patient does have fatigue, though this is certainly multifactorial. Patient has still not passed stool, no gas, does have mild distention with hypoactive bowel tones, does not have any nausea but some residual pain. 2. Generalized weakness. Patient has met with physical therapy, will continue to receive support through hospitalization. Patient may need assistance at least oversight for the first few days and return to [facility] for safety. Did speak with family [id number] cc, if patient needs further or more support, can discharge to their home as well. They are willing to transport her and POV. 3. Advanced care planning. Patient has POLST with DNA R/selective treatment. Patient continues to perceive her quality of life currently as fairly good, and relieved with no colostomy. She will need follow-up on outpatient basis regarding CT scan findings, though the patient is quite pragmatic in her approach to her health and may be okay with surveillence. Counseling provided regarding the palliative care service, if needs to access in the future. Will defer to primary care provider for further identification of palliative care needs outpatient. Time Spent: 45 minutes with getting 50% of this done in counseling and coordination of care with hospital team.
--- NOTE | 2019-10-05 14:57 | PROVIDER PROGRESS NOTE ---
Assessment/Plan - Problem List (1) Acute lower GI bleeding Assessment/Plan: resolved with surgery done 2 days ago (2) Anemia due to GI blood loss Assessment/Plan: Stable at after bleeding from LGI tract stopped (3) Lung mass Assessment/Plan: This will need future work-up. (4) Lymphadenopathy, retroperitoneal Assessment/Plan: This is probably related to malignancy, unknown primary (5) Hypokalemia Assessment/Plan: Replace. Follow BMP daily (6) Hyponatremia Assessment/Plan: Continue with IV saline replacement as her diet is slowly improving after her GI surgery. Follow BMP daily (7) Hx of essential hypertension Assessment/Plan: Continue with management, p.o. antihypertensives can be resumed after surgery (8) Dementia Assessment/Plan: Is pretty good decision-making capacity. Since this admission, Sania Chen NP of Palliative Care is now involved with her case - Current Meds Current Meds: Current Medications Generic Name Dose Route Start Last Admin Trade Name Freq PRN Reason Stop Dose Admin Acetaminophen 650 mg 10/02/19 11:05 10/04/19 12:26 Tylenol PO 650 mg Q4HR PRN Administration Pain 1 to 4 Carboxymethylcellulose 1 drops 10/02/19 23:28 10/03/19 05:41 Refresh 1% Ophth Drops EACHEYE 1 drops PRN PRN Administration Dry Eye Donepezil HCl 5 mg 10/03/19 10:30 10/05/19 08:05 Aricept PO 5 mg DAILY TASHIA Administration Famotidine 20 mg 10/03/19 21:00 10/05/19 08:05 Pepcid PO 20 mg BID TASHIA Administration Hydromorphone HCl 0.5 mg 10/03/19 19:12 10/04/19 19:14 Dilaudid Inj Syringe IVP 0.5 mg Q2H PRN Administration PAIN Ondansetron HCl 4 mg 10/02/19 11:05 10/04/19 18:37 Zofran Inj IVP 4 mg Q6HR PRN Administration Nausea / Vomiting Oxybutynin Chloride 5 mg 10/02/19 21:00 10/04/19 21:18 Ditropan PO 5 mg QPM TASHIA Administration Oxycodone HCl 5 mg 10/03/19 19:12 10/05/19 06:21 Roxicodone PO 5 mg Q4HR PRN Administration PAIN Prochlorperazine Maleate 5 mg 10/03/19 19:18 10/04/19 14:41 Compazine PO 5 mg Q6HR PRN Administration Nausea / Vomiting Sodium Chloride 10 ml 10/02/19 11:05 10/04/19 19:15 Normal Saline Flush 0.9% IVP 10 ml PRN PRN Administration NEEDED PER PROVIDER ORDERS Sodium Chloride 10 ml 10/02/19 17:00 10/05/19 14:48 Normal Saline Flush 0.9% IVP Not Given 0100,0900,1700 TASHIA - Lab Result Fish Bone Diagrams: 10/06/19 05:20 10/06/19 05:20 - Additional Planning My Orders: My Active Orders 10/05/19 Evaluate and Treat OT [OT] Routine Evaluate and Treat PT [PT] Routine Objective Vital Signs: Vital Signs - 24 hr 10/04/19 10/04/19 10/05/19 15:51 20:00 00:05 Temperature 36.5 C 36.8 C 36.4 C L Heart Rate Heart Rate [ Activity] Heart Rate [ 73 89 64 Brachial] Heart Rate [ Supine] Respiratory 18 18 16 Rate Blood Pressure [Activity] Blood Pressure 151/75 H [Left Brachial artery] Blood Pressure 137/73 H 151/82 H [Right Brachial artery] Blood Pressure [Supine] O2 Saturation 97 96 98 10/05/19 10/05/19 10/05/19 05:25 09:00 10:35 Temperature 36.7 C 36.6 C Heart Rate Heart Rate [ 87 Activity] Heart Rate [ 82 67 Brachial] Heart Rate [ 84 Supine] Respiratory 16 18 Rate Blood Pressure 181/98 H [Activity] Blood Pressure 159/69 H 144/69 H [Left Brachial artery] Blood Pressure [Right Brachial artery] Blood Pressure 171/81 H [Supine] O2 Saturation 98 93 10/05/19 10/05/19 11:45 13:00 Temperature 36.6 C 36.3 C L Heart Rate 74 Heart Rate [ Activity] Heart Rate [ 71 Brachial] Heart Rate [ Supine] Respiratory 18 17 Rate Blood Pressure [Activity] Blood Pressure 167/76 H [Left Brachial artery] Blood Pressure [Right Brachial artery] Blood Pressure [Supine] O2 Saturation 92 92 Oxygen O2 Source Room air I&O (Last 24 Hrs): Intake and Output Totals x24h 10/03/19 10/04/19 10/05/19 23:59 23:59 23:59 Intake Total 6518.865 3723 1590 Output Total 924 910 0489 Balance 5606.125 8800 239 General: Alert HEENT: Mucous membr. moist/pink Neck: Supple Neuro: Alert, Non Focal Cardiovascular: Regular rate Respiratory: No respiratory distress Abdomen: Soft Extremities: No edema - Results Results: Laboratory Results WBC 10.1 x10^3/uL (4.8-10.8) 10/05/19 05:20 RBC 3.19 10^6/uL (4.20-5.40) L 10/05/19 05:20 Hgb 10.1 g/dL (12.0-16.0) L 10/05/19 05:20 Hct 29.6 % (37.0-47.0) L 10/05/19 05:20 MCV 92.8 fL (81.0-99.0) 10/05/19 05:20 MCH 31.7 pg (27.0-31.0) H 10/05/19 05:20 MCHC 34.1 g/dL (32.0-36.0) 10/05/19 05:20 RDW 14.4 % (12.0-15.0) 10/05/19 05:20 Plt Count 161 10^3/uL (130-450) 10/05/19 05:20 MPV 11.7 fL (7.9-10.8) H 10/05/19 05:20 Neut # (Auto) 8.4 10^3/uL (1.5-6.6) H 10/05/19 05:20 Lymph # (Auto) 0.9 10^3/uL (1.5-3.5) L 10/05/19 05:20 [place] # (Auto) 0.7 10^3/uL (0.0-1.0) 10/05/19 05:20 Eos # (Auto) 0.0 10^3/uL (0.0-0.7) 10/05/19 05:20 Baso # (Auto) 0.0 10^3/uL (0.0-0.1) 10/05/19 05:20 Absolute Nucleated RBC 0.00 x10^3/uL 10/05/19 05:20 Nucleated RBC % 0.0 /100WBC 10/05/19 05:20 PT 13.0 secs (9.9-12.6) H 10/02/19 06:55 INR 1.1 (0.8-1.2) 10/02/19 06:55 APTT 28.5 secs (24.9-33.3) 10/02/19 06:55 Sodium 130 mmol/L (135-145) L 10/05/19 06:10 Potassium 3.4 mmol/L (3.5-5.0) L 10/05/19 06:10 Chloride 92 mmol/L (101-111) L 10/05/19 06:10 Carbon Dioxide 28 mmol/L (21-32) 10/05/19 06:10 Anion Gap 10.0 (6-13) 10/05/19 06:10 BUN 7 mg/dL (6-20) 10/05/19 06:10 Creatinine 0.5 mg/dL (0.4-1.0) 10/05/19 06:10 Estimated GFR (MDRD) 117 (>89) 10/05/19 06:10 Glucose 112 mg/dL (70-100) H 10/05/19 06:10 POC Whole Bld Glucose 151 mg/dL (70 - 100) H 10/04/19 21:37 Calcium 8.8 mg/dL (8.5-10.3) 10/05/19 06:10 Magnesium 1.9 mg/dL (1.7-2.8) 10/02/19 14:10 Total Bilirubin 0.9 mg/dL (0.2-1.0) 10/02/19 06:55 AST 18 IU/L (10-42) 10/02/19 06:55 ALT 13 IU/L (10-60) 10/02/19 06:55 Alkaline Phosphatase 61 IU/L (42-121) 10/02/19 06:55 Total Protein 6.9 g/dL (6.7-8.2) 10/02/19 06:55 Albumin 4.2 g/dL (3.2-5.5) 10/02/19 06:55 Globulin 2.7 g/dL (2.1-4.2) 10/02/19 06:55 Albumin/Globulin Ratio 1.6 (1.0-2.2) 10/02/19 06:55 Lipase 27 U/L (22-51) 10/02/19 06:55 Urine Color YELLOW 10/02/19 17:15 Urine Clarity CLEAR (CLEAR) 10/02/19 17:15 Urine pH 7.0 PH (5.0-7.5) 10/02/19 17:15 Ur Specific [place] 1.010 (1.002-1.030) 10/02/19 17:15 Urine Protein NEGATIVE mg/dL (NEGATIVE) 10/02/19 17:15 Urine Glucose (UA) NEGATIVE mg/dL (NEGATIVE) 10/02/19 17:15 Urine Ketones TRACE mg/dL (NEGATIVE) 10/02/19 17:15 Urine Occult Blood SMALL (NEGATIVE) H 10/02/19 17:15 Urine Nitrite NEGATIVE (NEGATIVE) 10/02/19 17:15 Urine Bilirubin NEGATIVE (NEGATIVE) 10/02/19 17:15 Urine Urobilinogen 0.2 (NORMAL) E.U./dL (NORMAL) 10/02/19 17:15 Ur Leukocyte Esterase NEGATIVE (NEGATIVE) 10/02/19 17:15 Urine RBC 0-5 /HPF (0-5) 10/02/19 17:15 Urine WBC 0-3 /HPF (0-5) 10/02/19 17:15 Ur Squamous Epith Cells NONE SEEN (<= Few) 10/02/19 17:15 Urine Bacteria None Seen /HPF (None Seen) 10/02/19 17:15 Ur Microscopic Review INDICATED 10/02/19 17:15 Urine Culture Comments NOT INDICATED 10/02/19 17:15 Blood Type A POSITIVE 10/03/19 14:14 Blood Type Recheck A POSITIVE 10/03/19 13:57 Antibody Screen NEGATIVE 10/03/19 14:14 Crossmatch IS Only See Detail 10/03/19 14:14 Sepsis Event Note (H) - Evaluation Current Stage of Sepsis: Ruled out
[2019-10-05] MEDS: OXYBUTYNIN 5MG TABLET PO SCH (20:03)
[2019-10-05] MEDS: ONDANSETRON 4 MG/2 ML VIAL IVP PRN (23:38)
[2019-10-05] MEDS: HYDROmorphone 0.5 MG/0.5 ML SYRINGE IVP PRN (23:38)
[2019-10-06] MEDS: PROCHLORPERAZINE 5 MG TABLET PO PRN ×3 (04:13→21:42)
[2019-10-06 05:54] LABS: BASOPHILS % (AUTO) 0.3 %; EOSINOPHILS % (AUTO) 0.2 %; HGB - HEMOGLOBIN 11.1 g/dL (12.0-16.0); LYMPHOCYTES # (AUTO) 0.6 10^3/uL (1.5-3.5); LYMPHOCYTES % (AUTO) 5.7 %; MEAN CORPUSCULAR HEMOGLOBIN 30.7 pg (27.0-31.0); MEAN CORPUSCULAR HGB CONC 33.6 g/dL (32.0-36.0); MEAN CORPUSCULAR VOLUME 91.2 fL (81.0-99.0); MEAN PLATELET VOLUME 11.5 fL (7.9-10.8); MONOCYTES # (AUTO) 0.6 10^3/uL (0.0-1.0); MONOCYTES % (AUTO) 5.6 %; NEUTROPHILS # (AUTO) 9.8 10^3/uL (1.5-6.6); NEUTROPHILS % (AUTO) 87.7 %; PLT - PLATELET COUNT 195 10^3/uL (130-450); RED BLOOD COUNT 3.62 10^6/uL (4.20-5.40); RED CELL DISTRIBUTION WIDTH 14.5 % (12.0-15.0); WHITE BLOOD COUNT 11.2 x10^3/uL (4.8-10.8)
[2019-10-06 06:03] LABS: CALCIUM 9.2 mg/dL (8.5-10.3); CREATININE 0.5 mg/dL (0.4-1.0)
[2019-10-06] MEDS ORDERED: POTASSIUM CHLORIDE 20 MEQ TABLET PO ONE (07:18)
[2019-10-06] MEDS: SODIUM CHLORIDE FLUSH 0.9% 10 ML SYRINGE IVP SCH ×2 (07:59→16:45)
[2019-10-06] MEDS: FAMOTIDINE 20 MG TABLET PO SCH ×2 (07:59→21:42)
[2019-10-06] MEDS: DONEPEZIL 5 MG TABLET PO SCH (07:59)
[2019-10-06] MEDS: ONDANSETRON 4 MG/2 ML VIAL IVP PRN ×2 (07:59→18:19)
[2019-10-06] MEDS: POTASSIUM CHLOR 10 MEQ/100 ML 10 MEQ/100 ML BAG IV SCH ×4 (08:05→12:06)
[2019-10-06] MEDS: lisinopriL 20 MG TABLET PO SCH (08:10)
[2019-10-06] MEDS: amLODIPine 5 MG TABLET PO SCH (08:10)
--- NOTE | 2019-10-06 08:11 | PROVIDER PROGRESS NOTE ---
Subjective - Prog Note Date Prog Note Date: 10/06/19 - Subjective Pt reports feeling: No change (taking diet but still having nausea. diarrhea this am) Objective - Vital Signs/Intake & Output Vital Signs: Vital Signs x48h Temp Pulse Resp BP Pulse Ox 10/06/19 04:16 101 H 20 116/74 95 10/06/19 00:21 36.9 C 82 20 179/86 H 95 Intake & Output: Intake & Output 10/03/19 10/04/19 10/05/19 10/06/19 23:59 23:59 23:59 23:59 Intake Total 1512.145 4295 2040 Output Total 533 335 6402 Balance 0062.682 1853 -586 - Objective General Appearance: positive: Alert Eyes Bilateral: positive: Normal inspection, PERRL, EOMI ENT: positive: No signs of dehydration Neck: positive: No JVD Respiratory: positive: No respiratory distress Rectal: positive: Other (soft however moderately distended. incision tenderness. benign abdomen. dressing c/d/i no erythema) Extremities: positive: No pedal edema Neurologic/Psychiatric: positive: Oriented x3 - Lab Results Fish Bones: 10/06/19 05:20 10/06/19 05:20 Other Labs: Lab Results x24hrs 10/06/19 10/06/19 10/05/19 Range/Units 05:20 05:20 06:17 WBC 11.2 H (4.8-10.8) x10^3/uL RBC 3.62 L (4.20-5.40) 10^6/uL Hgb 11.1 L (12.0-16.0) g/dL Hct 33.0 L (37.0-47.0) % MCV 91.2 (81.0-99.0) fL MCH 30.7 (27.0-31.0) pg MCHC 33.6 (32.0-36.0) g/dL RDW 14.5 (12.0-15.0) % Plt Count 195 (130-450) 10^3/uL MPV 11.5 H (7.9-10.8) fL Neut # (Auto) 9.8 H (1.5-6.6) 10^3/uL Lymph # (Auto) 0.6 L (1.5-3.5) 10^3/uL [place] # (Auto) 0.6 (0.0-1.0) 10^3/uL Eos # (Auto) 0.0 (0.0-0.7) 10^3/uL Baso # (Auto) 0.0 (0.0-0.1) 10^3/uL Absolute Nucleated RBC 0.00 x10^3/uL Nucleated RBC % 0.0 /100WBC Sodium 130 L (135-145) mmol/L Potassium 3.2 L (3.5-5.0) mmol/L Chloride 90 L (101-111) mmol/L Carbon Dioxide 30 (21-32) mmol/L Anion Gap 10.0 (6-13) BUN 7 (6-20) mg/dL Creatinine 0.5 (0.4-1.0) mg/dL Estimated GFR (MDRD) 117 (>89) Glucose 133 H (70-100) mg/dL Calcium 9.2 (8.5-10.3) mg/dL Coronavirus (PCR) NEGATIVE Sepsis Event Note (H) - Evaluation Current Stage of Sepsis: Ruled out Assessment/Plan - Problem List (1) Acute lower GI bleeding Impression: ileus, postop improving. home when abdomen less distended and nausea resolved, perhaps in 1 to 2 days
--- NOTE | 2019-10-06 10:42 | PROVIDER PROGRESS NOTE ---
Assessment/Plan - Problem List (1) Status post colectomy Assessment/Plan: 61, Patient report she passed gas and had small bowel movement. But she also reports she is so weakness, she does not want to eat anything in the morning, report nausea but no vomiting. Continue follow-up with surgeon, Continue status post of colectomy Care. Continue physical and Occupational Therapy, encourage patient ambulation 09/28 Patient is status post of subtotal colectomy day 1, Patient tolerated of full liquid diet, but the patient did not pass gas or bowel movement yet. We will continue follow-up with her surgeon, continue pain control, continue out the bed with activity, continue incentive spirometery. (2) Acute lower GI bleeding Assessment/Plan: 10-05, hemoglobin improved, patient denies any more GI bleed , patient hemoglobin slightly increased to10.7 today. patient denies any more GI bleed, patient is s/p of colectomy, we will continue monitor patient hemoglobin. (3) Anemia due to GI blood loss Assessment/Plan: 10/05, hemoglobin is 11.1 improve, patient denied GI bleed , Patient's hemoglobin is 10.7, stable, patient denies any more GI bleed, we will continue monitor patient if GI bleed (4) Lung mass Assessment/Plan: 10/05, patient had palliative care consult, patient will follow-up with PCP and Palliative care for further management As outpatient. 09/28, patient And her family knew she has a lung mass, patient had palliative care consult on yesterday, patient had a surgery on yesterday for her GI bleed, we will continue supportive for patient, consult with social media editor for pt's continuing care and safely d/c plan. (5) Lymphadenopathy, retroperitoneal Assessment/Plan: ,patient had palliative care consult, patient will follow-up with PCP and Palliative care for further management As outpatient. 09/28, patient know lymphadenopathy at her retroperitoneal. continue support pt. (6) Hypokalemia Assessment/Plan: 10/05, potassium 3.2, will replacement, BMP monitor Result (7) Hyponatremia Assessment/Plan: 10/05, Sodium today is 130, patient has a history of chronic hyponatremia, we will give the patient 75 cc/h of normal saline, it seems the patient has mild dehydration today and poor oral intake, BMP monitor Sodium is 133, Continue with IV saline hydration. Follow BMP daily (8) Hx of essential hypertension Assessment/Plan: 10/05, stable Patient blood pressure is normal (9) Dementia Assessment/Plan: Chronic, She was on donezepil before this admission, continue Donezepil. (9)neutrocytosis/leukocytosis 618, WBC is 11.2, slight elevated today. Patient denies abdominal pain, patient still has some distention of the abdomen but she also state it is her chronic condition. Patient denies dysuria, patient has no cough or wheezing or respiratory symptoms, Will continue CBC monitoring. Patient has WBC 17,But the patient has no fever, patient's abdomen pain is good control. patient is status post surgery on yesterday, it could be reactive or stress to cause her to have leukocytosis or leukocytosis, patient had antibiotic finished today, It is unlikely patient has ongoing infection, will continue monitor CBC, and vital monitor - Current Meds Current Meds: Current Medications Generic Name Dose Route Start Last Admin Trade Name Freq PRN Reason Stop Dose Admin Acetaminophen 650 mg 10/02/19 11:05 10/04/19 12:26 Tylenol PO 650 mg Q4HR PRN Administration Pain 1 to 4 Amlodipine Besylate 5 mg 10/06/19 09:00 10/06/19 08:10 Norvasc PO 5 mg DAILY TASHIA Administration Carboxymethylcellulose 1 drops 10/02/19 23:28 10/03/19 05:41 Refresh 1% Ophth Drops EACHEYE 1 drops PRN PRN Administration Dry Eye Donepezil HCl 5 mg 10/03/19 10:30 10/06/19 07:59 Aricept PO 5 mg DAILY TASHIA Administration Famotidine 20 mg 10/03/19 21:00 10/06/19 07:59 Pepcid PO 20 mg BID TASHIA Administration Hydromorphone HCl 0.5 mg 10/03/19 19:12 10/05/19 23:38 Dilaudid Inj Syringe IVP 0.5 mg Q2H PRN Administration PAIN Potassium Chloride 10 meq in 100 mls @ 100 mls/hr 10/06/19 07:00 10/06/19 10:37 Potassium Chloride IV 10/06/19 10:59 100 mls/hr Q1H TASHIA Administration Lisinopril 40 mg 10/06/19 09:00 10/06/19 08:10 Zestril PO 40 mg DAILY TASHIA Administration Ondansetron HCl 4 mg 10/02/19 11:05 10/06/19 07:59 Zofran Inj IVP 4 mg Q6HR PRN Administration Nausea / Vomiting Oxybutynin Chloride 5 mg 10/02/19 21:00 10/05/19 20:03 Ditropan PO 5 mg QPM TASHIA Administration Oxycodone HCl 5 mg 10/03/19 19:12 10/05/19 06:21 Roxicodone PO 5 mg Q4HR PRN Administration PAIN Prochlorperazine Maleate 5 mg 10/03/19 19:18 10/06/19 04:13 Compazine PO 5 mg Q6HR PRN Administration Nausea / Vomiting Sodium Chloride 10 ml 10/02/19 11:05 10/04/19 19:15 Normal Saline Flush 0.9% IVP 10 ml PRN PRN Administration NEEDED PER PROVIDER ORDERS Sodium Chloride 10 ml 10/02/19 17:00 10/06/19 07:59 Normal Saline Flush 0.9% IVP 10 ml 0100,0900,1700 TASHIA Administration - Lab Result Fish Bone Diagrams: 10/06/19 05:20 10/06/19 05:20 - Additional Planning My Orders: My Active Orders 10/07/19 05:00 BMP - BASIC METABOLIC PANEL [CHEM] DAILYLAB CBC - COMP BLD CT W/AUTO DIFF [HEME] DAILYLAB 10/08/19 05:00 BMP - BASIC METABOLIC PANEL [CHEM] DAILYLAB CBC - COMP BLD CT W/AUTO DIFF [HEME] DAILYLAB Subjective - Subjective Patient Reports: Nausea Objective Vital Signs: Vital Signs - 24 hr 10/05/19 10/05/19 10/05/19 11:45 13:00 15:50 Temperature 36.6 C 36.3 C L 36.5 C Heart Rate 74 Heart Rate [ 71 91 Brachial] Respiratory 18 17 16 Rate Blood Pressure 167/76 H 166/94 H [Left Brachial artery] Blood Pressure [Right Brachial artery] O2 Saturation 92 92 97 10/05/19 10/06/19 10/06/19 20:12 00:21 04:16 Temperature 36.5 C 36.9 C Heart Rate Heart Rate [ 79 82 101 H Brachial] Respiratory 20 20 20 Rate Blood Pressure 179/86 H 116/74 [Left Brachial artery] Blood Pressure 155/85 H [Right Brachial artery] O2 Saturation 95 95 95 10/06/19 10/06/19 07:20 09:58 Temperature 36.5 C Heart Rate Heart Rate [ 84 Brachial] Respiratory 18 Rate Blood Pressure 141/82 H [Left Brachial artery] Blood Pressure 149/97 H [Right Brachial artery] O2 Saturation 96 Oxygen O2 Source Room air I&O (Last 24 Hrs): Intake and Output Totals x24h 10/04/19 10/05/19 10/06/19 23:59 23:59 23:59 Intake Total 3165 2040 200 Output Total 465 2626 300 Balance 2700 -586 -100 General: Alert, No acute distress HEENT: Atraumatic Neck: Supple Lymphatic: no adenopathy Neuro: Alert, Non Focal Cardiovascular: Regular rate, Normal S1, Normal S2 Respiratory: Chest non-tender, No respiratory distress Abdomen: Normal bowel sounds, Soft, No tenderness Extremities: Normal pulses - Results Results: Laboratory Results WBC 11.2 x10^3/uL (4.8-10.8) H 10/06/19 05:20 RBC 3.62 10^6/uL (4.20-5.40) L 10/06/19 05:20 Hgb 11.1 g/dL (12.0-16.0) L 10/06/19 05:20 Hct 33.0 % (37.0-47.0) L 10/06/19 05:20 MCV 91.2 fL (81.0-99.0) 10/06/19 05:20 MCH 30.7 pg (27.0-31.0) 10/06/19 05:20 MCHC 33.6 g/dL (32.0-36.0) 10/06/19 05:20 RDW 14.5 % (12.0-15.0) 10/06/19 05:20 Plt Count 195 10^3/uL (130-450) 10/06/19 05:20 MPV 11.5 fL (7.9-10.8) H 10/06/19 05:20 Neut # (Auto) 9.8 10^3/uL (1.5-6.6) H 10/06/19 05:20 Lymph # (Auto) 0.6 10^3/uL (1.5-3.5) L 10/06/19 05:20 [place] # (Auto) 0.6 10^3/uL (0.0-1.0) 10/06/19 05:20 Eos # (Auto) 0.0 10^3/uL (0.0-0.7) 10/06/19 05:20 Baso # (Auto) 0.0 10^3/uL (0.0-0.1) 10/06/19 05:20 Absolute Nucleated RBC 0.00 x10^3/uL 10/06/19 05:20 Nucleated RBC % 0.0 /100WBC 10/06/19 05:20 PT 13.0 secs (9.9-12.6) H 10/02/19 06:55 INR 1.1 (0.8-1.2) 10/02/19 06:55 APTT 28.5 secs (24.9-33.3) 10/02/19 06:55 Sodium 130 mmol/L (135-145) L 10/06/19 05:20 Potassium 3.2 mmol/L (3.5-5.0) L 10/06/19 05:20 Chloride 90 mmol/L (101-111) L 10/06/19 05:20 Carbon Dioxide 30 mmol/L (21-32) 10/06/19 05:20 Anion Gap 10.0 (6-13) 10/06/19 05:20 BUN 7 mg/dL (6-20) 10/06/19 05:20 Creatinine 0.5 mg/dL (0.4-1.0) 10/06/19 05:20 Estimated GFR (MDRD) 117 (>89) 10/06/19 05:20 Glucose 133 mg/dL (70-100) H 10/06/19 05:20 POC Whole Bld Glucose 151 mg/dL (70 - 100) H 10/04/19 21:37 Calcium 9.2 mg/dL (8.5-10.3) 10/06/19 05:20 Magnesium 1.9 mg/dL (1.7-2.8) 10/02/19 14:10 Total Bilirubin 0.9 mg/dL (0.2-1.0) 10/02/19 06:55 AST 18 IU/L (10-42) 10/02/19 06:55 ALT 13 IU/L (10-60) 10/02/19 06:55 Alkaline Phosphatase 61 IU/L (42-121) 10/02/19 06:55 Total Protein 6.9 g/dL (6.7-8.2) 10/02/19 06:55 Albumin 4.2 g/dL (3.2-5.5) 10/02/19 06:55 Globulin 2.7 g/dL (2.1-4.2) 10/02/19 06:55 Albumin/Globulin Ratio 1.6 (1.0-2.2) 10/02/19 06:55 Lipase 27 U/L (22-51) 10/02/19 06:55 Urine Color YELLOW 10/02/19 17:15 Urine Clarity CLEAR (CLEAR) 10/02/19 17:15 Urine pH 7.0 PH (5.0-7.5) 10/02/19 17:15 Ur Specific Nelson 1.010 (1.002-1.030) 10/02/19 17:15 Urine Protein NEGATIVE mg/dL (NEGATIVE) 10/02/19 17:15 Urine Glucose (UA) NEGATIVE mg/dL (NEGATIVE) 10/02/19 17:15 Urine Ketones TRACE mg/dL (NEGATIVE) 10/02/19 17:15 Urine Occult Blood SMALL (NEGATIVE) H 10/02/19 17:15 Urine Nitrite NEGATIVE (NEGATIVE) 10/02/19 17:15 Urine Bilirubin NEGATIVE (NEGATIVE) 10/02/19 17:15 Urine Urobilinogen 0.2 (NORMAL) E.U./dL (NORMAL) 10/02/19 17:15 Ur Leukocyte Esterase NEGATIVE (NEGATIVE) 10/02/19 17:15 Urine RBC 0-5 /HPF (0-5) 10/02/19 17:15 Urine WBC 0-3 /HPF (0-5) 10/02/19 17:15 Ur Squamous Epith Cells NONE SEEN (<= Few) 10/02/19 17:15 Urine Bacteria None Seen /HPF (None Seen) 10/02/19 17:15 Ur Microscopic Review INDICATED 10/02/19 17:15 Urine Culture Comments NOT INDICATED 10/02/19 17:15 Coronavirus (PCR) NEGATIVE 10/05/19 06:17 Blood Type A POSITIVE 10/03/19 14:14 Blood Type Recheck A POSITIVE 10/03/19 13:57 Antibody Screen NEGATIVE 10/03/19 14:14 Crossmatch IS Only See Detail 10/03/19 14:14 Sepsis Event Note (H) - Evaluation Current Stage of Sepsis: Ruled out ABX Reporting Has patient been on IV antibiotics over the past 48 hours?: No Current Medications - Current Medications Current Medications: Active Medications Acetaminophen (Tylenol) 650 mg PO Q4HR PRN PRN Reason: Pain 1 to 4 Last Admin: 10/04/19 12:26 Dose: 650 mg Documented by: Amlodipine Besylate (Norvasc) 5 mg PO DAILY [facility] Last Admin: 10/06/19 08:10 Dose: 5 mg Documented by: Carboxymethylcellulose (Refresh 1% Ophth Drops) 1 drops EACHEYE PRN PRN PRN Reason: Dry Eye Last Admin: 10/03/19 05:41 Dose: 1 drops Documented by: Donepezil HCl (Aricept) 5 mg PO DAILY [facility] Last Admin: 10/06/19 07:59 Dose: 5 mg Documented by: Famotidine (Pepcid) 20 mg PO BID [facility] Last Admin: 10/06/19 07:59 Dose: 20 mg Documented by: Hydromorphone HCl (Dilaudid Inj Syringe) 0.5 mg IVP Q2H PRN PRN Reason: PAIN Last Admin: 10/05/19 23:38 Dose: 0.5 mg Documented by: Sodium Chloride (Normal Saline 0.9%) 1,000 mls @ 75 mls/hr IV .[id number] [facility] Stop: 10/07/19 14:39 Lisinopril (Zestril) 40 mg PO DAILY [facility] Last Admin: 10/06/19 08:10 Dose: 40 mg Documented by: Ondansetron HCl (Zofran Inj) 4 mg IVP Q6HR PRN PRN Reason: Nausea / Vomiting Last Admin: 10/06/19 07:59 Dose: 4 mg Documented by: Oxybutynin Chloride (Ditropan) 5 mg PO QPM [facility] Last Admin: 10/05/19 20:03 Dose: 5 mg Documented by: Oxycodone HCl (Roxicodone) 5 mg PO Q4HR PRN PRN Reason: PAIN Last Admin: 10/05/19 06:21 Dose: 5 mg Documented by: Prochlorperazine Maleate (Compazine) 5 mg PO Q6HR PRN PRN Reason: Nausea / Vomiting Last Admin: 10/06/19 11:46 Dose: 5 mg Documented by: Sodium Chloride (Normal Saline Flush 0.9%) 10 ml IVP PRN PRN PRN Reason: NEEDED PER PROVIDER ORDERS Last Admin: 10/04/19 19:15 Dose: 10 ml Documented by: Sodium Chloride (Normal Saline Flush 0.9%) 10 ml IVP 0100,0900,1700 TASHIA Last Admin: 10/06/19 07:59 Dose: 10 ml Documented by: Amlodipine Besylate 5 mg PO DAILY 11/17/15 Aspirin EC [Ecotrin] 325 mg PO DAILY 10/02/19 Calcium Carbonate [Calcium] 600 mg PO DAILY 10/02/19 Donepezil [Aricept] 5 mg PO QPM 10/02/19 Lisinopril/Hydrochlorothiazide [Lisinopril-Hctz 20-12.5 mg Tab] 2 each PO DAILY 10/02/19 Oxybutynin [Ditropan] 5 mg PO QPM 10/02/19 Pravastatin [Pravachol] 40 mg PO DAILY 10/02/19
[2019-10-06] MEDS: SODIUM CHLORIDE 0.9% 1,000 ML IV SCH ×2 (12:08→23:38)
[2019-10-06] MEDS: OXYBUTYNIN 5MG TABLET PO SCH (21:42)
[2019-10-07] MEDS: SODIUM CHLORIDE FLUSH 0.9% 10 ML SYRINGE IVP SCH ×3 (00:52→18:12)
[2019-10-07] MEDS: HYDROmorphone 0.5 MG/0.5 ML SYRINGE IVP PRN (00:52)
[2019-10-07] MEDS: ONDANSETRON 4 MG/2 ML VIAL IVP PRN ×2 (02:16→08:10)
[2019-10-07] MEDS: PROCHLORPERAZINE 5 MG TABLET PO PRN (04:45)
[2019-10-07 05:48] LABS: BASOPHILS % (AUTO) 0.1 %; HGB - HEMOGLOBIN 11.5 g/dL (12.0-16.0); LYMPHOCYTES # (AUTO) 0.5 10^3/uL (1.5-3.5); LYMPHOCYTES % (AUTO) 3.2 %; MEAN CORPUSCULAR HEMOGLOBIN 31.9 pg (27.0-31.0); MEAN CORPUSCULAR VOLUME 91.1 fL (81.0-99.0); MEAN PLATELET VOLUME 11.2 fL (7.9-10.8); MONOCYTES # (AUTO) 0.7 10^3/uL (0.0-1.0); MONOCYTES % (AUTO) 4.9 %; NEUTROPHILS # (AUTO) 13.6 10^3/uL (1.5-6.6); NEUTROPHILS % (AUTO) 91.2 %; PLT - PLATELET COUNT 223 10^3/uL (130-450); RED BLOOD COUNT 3.61 10^6/uL (4.20-5.40); RED CELL DISTRIBUTION WIDTH 14.3 % (12.0-15.0); WHITE BLOOD COUNT 14.9 x10^3/uL (4.8-10.8)
[2019-10-07 06:01] LABS: CREATININE 0.5 mg/dL (0.4-1.0)
[2019-10-07] MEDS ORDERED: POTASSIUM CHLORIDE 20 MEQ TABLET PO ONE (08:00)
[2019-10-07] MEDS: DONEPEZIL 5 MG TABLET PO SCH (08:12)
[2019-10-07] MEDS: lisinopriL 20 MG TABLET PO SCH (08:12)
[2019-10-07] MEDS: FAMOTIDINE 20 MG TABLET PO SCH ×2 (08:12→21:32)
[2019-10-07] MEDS: amLODIPine 5 MG TABLET PO SCH (08:12)
[2019-10-07] MEDS: polyethylene glycoL 3350 17 GM PACKET PO SCH (08:13)
[2019-10-07] MEDS: POTASSIUM CHLOR 10 MEQ/100 ML 10 MEQ/100 ML BAG IV SCH ×6 (08:13→13:27)
--- NOTE | 2019-10-07 08:34 | PROVIDER PROGRESS NOTE ---
Subjective - Prog Note Date Prog Note Date: 10/07/19 - Subjective Pt reports feeling: Worse (having nausea and small emesis) Objective - Vital Signs/Intake & Output Vital Signs: Vital Signs x48h Temp Pulse Resp BP Pulse Ox 10/07/19 05:00 36.8 C 18 167/84 H 93 10/07/19 01:00 36.8 C 97 18 157/94 H 96 Intake & Output: Intake & Output 10/04/19 10/05/19 10/06/19 10/07/19 23:59 23:59 23:59 23:59 Intake Total 3165 2040 1482.5 Output Total 465 2626 575 225 Balance 2700 -586 907.5 -225 - Objective General Appearance: positive: No acute distress, Alert Eyes Bilateral: positive: PERRL, EOMI ENT: positive: No signs of dehydration Abdomen: positive: Other (soft however distended. dressing c/d/i) - Lab Results Fish Bones: 10/07/19 05:10 10/07/19 05:10 Other Labs: Lab Results x24hrs 10/07/19 10/07/19 10/06/19 Range/Units 05:10 05:10 16:32 WBC 14.9 H (4.8-10.8) x10^3/uL RBC 3.61 L (4.20-5.40) 10^6/uL Hgb 11.5 L (12.0-16.0) g/dL Hct 32.9 L (37.0-47.0) % MCV 91.1 (81.0-99.0) fL MCH 31.9 H (27.0-31.0) pg MCHC 35.0 (32.0-36.0) g/dL RDW 14.3 (12.0-15.0) % Plt Count 223 (130-450) 10^3/uL MPV 11.2 H (7.9-10.8) fL Neut # (Auto) 13.6 H (1.5-6.6) 10^3/uL Lymph # (Auto) 0.5 L (1.5-3.5) 10^3/uL Real # (Auto) 0.7 (0.0-1.0) 10^3/uL Eos # (Auto) 0.0 (0.0-0.7) 10^3/uL Baso # (Auto) 0.0 (0.0-0.1) 10^3/uL Absolute Nucleated RBC 0.00 x10^3/uL Nucleated RBC % 0.0 /100WBC Sodium 130 L (135-145) mmol/L Potassium 3.3 L (3.5-5.0) mmol/L Chloride 91 L (101-111) mmol/L Carbon Dioxide 26 (21-32) mmol/L Anion Gap 13.0 (6-13) BUN 12 (6-20) mg/dL Creatinine 0.5 (0.4-1.0) mg/dL Estimated GFR (MDRD) 117 (>89) Glucose 153 H (70-100) mg/dL POC Whole Bld Glucose 132 H (70 - 100) mg/dL Calcium 9.0 (8.5-10.3) mg/dL Crossmatch IS Only 10/06/19 10/06/19 10/05/19 Range/Units 10:55 07:21 20:30 WBC (4.8-10.8) x10^3/uL RBC (4.20-5.40) 10^6/uL Hgb (12.0-16.0) g/dL Hct (37.0-47.0) % MCV (81.0-99.0) fL MCH (27.0-31.0) pg MCHC (32.0-36.0) g/dL RDW (12.0-15.0) % Plt Count (130-450) 10^3/uL MPV (7.9-10.8) fL Neut # (Auto) (1.5-6.6) 10^3/uL Lymph # (Auto) (1.5-3.5) 10^3/uL Real # (Auto) (0.0-1.0) 10^3/uL Eos # (Auto) (0.0-0.7) 10^3/uL Baso # (Auto) (0.0-0.1) 10^3/uL Absolute Nucleated RBC x10^3/uL Nucleated RBC % /100WBC Sodium (135-145) mmol/L Potassium (3.5-5.0) mmol/L Chloride (101-111) mmol/L Carbon Dioxide (21-32) mmol/L Anion Gap (6-13) BUN (6-20) mg/dL Creatinine (0.4-1.0) mg/dL Estimated GFR (MDRD) (>89) Glucose (70-100) mg/dL POC Whole Bld Glucose 127 H 117 H 117 H (70 - 100) mg/dL Calcium (8.5-10.3) mg/dL Crossmatch IS Only 10/05/19 10/05/19 10/03/19 Range/Units 16:50 11:27 14:14 WBC (4.8-10.8) x10^3/uL RBC (4.20-5.40) 10^6/uL Hgb (12.0-16.0) g/dL Hct (37.0-47.0) % MCV (81.0-99.0) fL MCH (27.0-31.0) pg MCHC (32.0-36.0) g/dL RDW (12.0-15.0) % Plt Count (130-450) 10^3/uL MPV (7.9-10.8) fL Neut # (Auto) (1.5-6.6) 10^3/uL Lymph # (Auto) (1.5-3.5) 10^3/uL Real # (Auto) (0.0-1.0) 10^3/uL Eos # (Auto) (0.0-0.7) 10^3/uL Baso # (Auto) (0.0-0.1) 10^3/uL Absolute Nucleated RBC x10^3/uL Nucleated RBC % /100WBC Sodium (135-145) mmol/L Potassium (3.5-5.0) mmol/L Chloride (101-111) mmol/L Carbon Dioxide (21-32) mmol/L Anion Gap (6-13) BUN (6-20) mg/dL Creatinine (0.4-1.0) mg/dL Estimated GFR (MDRD) (>89) Glucose (70-100) mg/dL POC Whole Bld Glucose 130 H 126 H (70 - 100) mg/dL Calcium (8.5-10.3) mg/dL Crossmatch IS Only See Detail Sepsis Event Note (H) - Evaluation Current Stage of Sepsis: Ruled out Assessment/Plan - Problem List (1) Acute lower GI bleeding Impression: ileus with distension and nausea, small emesis. clears only until improved. if she is not improving she may need an ngt.
--- NOTE | 2019-10-07 10:56 | PROVIDER PROGRESS NOTE ---
Assessment/Plan - Problem List (1) Status post colectomy Assessment/Plan: 10/06, patient report she is still have nausea and small amount of vomiting, poor appetite. patient still has distended pelvis, patient WBC today is elevated to 14.8, Patient has no fever, but the patient report his abdominal pain basically is as after she was s/p of procedure, she does not increase his abdominal pain, patient has active bowel sounds in the 4 quadrant. 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 it can cause pt feel nausea and distended pelvis. For this reason, pt has palliative care consult and will followup with pt. Plan:Continue follow-up with surgeon, continue clear diet today, continue pain control. , Patient report she passed gas and had small bowel movement. But she also reports she is so weakness, she does not want to eat anything in the morning, report nausea but no vomiting. Continue follow-up with surgeon, Continue status post of colectomy Care. Continue physical and Occupational Therapy, encourage patient ambulation 09/28 Patient is status post of subtotal colectomy day 1, Patient tolerated of full liquid diet, but the patient did not pass gas or bowel movement yet. We will continue follow-up with her surgeon, continue pain control, continue out the bed with activity, continue incentive spirometery. (2) Acute lower GI bleeding Assessment/Plan: 10/06, hemoglobin increases to 11.5, patient denies more GI bleed 10-05, hemoglobin improved, patient denies any more GI bleed 611, patient hemoglobin slightly increased to10.7 today. patient denies any more GI bleed, patient is s/p of colectomy, we will continue monitor patient hemoglobin. (3) Anemia due to GI blood loss Assessment/Plan: 10/05, hemoglobin is 11.1 improve, patient denied GI bleed 611, Patient's hemoglobin is 10.7, stable, patient denies any more GI bleed, we will continue monitor patient if GI bleed (4) Lung mass Assessment/Plan: 10/05, patient had palliative care consult, patient will follow-up with PCP and Palliative care for further management As outpatient. 09/28, patient And her family knew she has a lung mass, patient had palliative care consult on yesterday, patient had a surgery on yesterday for her GI bleed, we will continue supportive for patient, consult with mental health social worker for pt's continuing care and safely d/c plan. (5) Lymphadenopathy, retroperitoneal Assessment/Plan: 618,patient had palliative care consult, patient will follow-up with PCP and Palliative care for further management As outpatient. 09/28, patient know lymphadenopathy at her retroperitoneal. continue support pt. (6) Hypokalemia Assessment/Plan: 10/06, potassium 3.3, will replacement, BMP monitor 10/05, potassium 3.2, will replacement, BMP monitor Result (7) Hyponatremia Assessment/Plan: 10/06, Sodium today is still 130, patient has a history of chronic hyponatremia 10/05, Sodium today is 130, patient has a history of chronic hyponatremia, we will give the patient 75 cc/h of normal saline, it seems the patient has mild dehydration today and poor oral intake, BMP monitor Sodium is 133, Continue with IV saline hydration. Follow BMP daily (8) Hx of essential hypertension Assessment/Plan: 619, patient has slightly elevated blood pressure, will increase his amlodipine to 10 mg daily 10/05, stable Patient blood pressure is normal (9) Dementia Assessment/Plan: Chronic, She was on donezepil before this admission, continue Donezepil. (9)neutrocytosis/leukocytosis 10/06, WBC is 14.9 today elevated compared with yesterday, but the patient has no fever, patient does not increase his abdominal pain or tenderness, patient has active bowel sounds in 4 quadrants. it is unlikely pt has acute infection evidence at this time. it is likely reaction after s/p procedure. We will continue monitor with CBC, continue monitor vital signs, continue follow-up with surgeon. 618, WBC is 11.2, slight elevated today. Patient denies abdominal pain, patient still has some distention of the abdomen but she also state it is her chronic condition. Patient denies dysuria, patient has no cough or wheezing or respiratory symptoms, Will continue CBC monitoring. Patient has WBC 17,But the patient has no fever, patient's abdomen pain is good control. patient is status post surgery on yesterday, it could be reactive or stress to cause her to have leukocytosis or leukocytosis, patient had antibiotic finished today, It is unlikely patient has ongoing infection, will continue monitor CBC, and vital monitor - Current Meds Current Meds: Current Medications Generic Name Dose Route Start Last Admin Trade Name Freq PRN Reason Stop Dose Admin Acetaminophen 650 mg 10/02/19 11:05 10/04/19 12:26 Tylenol PO 650 mg Q4HR PRN Administration Pain 1 to 4 Amlodipine Besylate 5 mg 10/06/19 09:00 10/07/19 08:12 Norvasc PO 5 mg DAILY TASHIA Administration Carboxymethylcellulose 1 drops 10/02/19 23:28 10/03/19 05:41 Refresh 1% Ophth Drops EACHEYE 1 drops PRN PRN Administration Dry Eye Donepezil HCl 5 mg 10/03/19 10:30 10/07/19 08:12 Aricept PO 5 mg DAILY TASHIA Administration Famotidine 20 mg 10/03/19 21:00 10/07/19 08:12 Pepcid PO 20 mg BID TASHIA Administration Hydromorphone HCl 0.5 mg 10/03/19 19:12 10/07/19 00:52 Dilaudid Inj Syringe IVP 0.5 mg Q2H PRN Administration PAIN Potassium Chloride 10 meq in 100 mls @ 100 mls/hr 10/07/19 07:00 10/07/19 10:08 Potassium Chloride IV 10/07/19 12:59 100 mls/hr Q1H TASHIA Administration Lisinopril 40 mg 10/06/19 09:00 10/07/19 08:12 Zestril PO 40 mg DAILY TASHIA Administration Ondansetron HCl 4 mg 10/02/19 11:05 10/07/19 08:10 Zofran Inj IVP 4 mg Q6HR PRN Administration Nausea / Vomiting Oxybutynin Chloride 5 mg 10/02/19 21:00 10/06/19 21:42 Ditropan PO 5 mg QPM TASHIA Administration Oxycodone HCl 5 mg 10/03/19 19:12 10/05/19 06:21 Roxicodone PO 5 mg Q4HR PRN Administration PAIN Polyethylene Glycol 17 gm 10/07/19 09:00 10/07/19 08:13 Miralax PO 17 gm DAILY TASHIA Administration Prochlorperazine Maleate 5 mg 10/03/19 19:18 10/07/19 04:45 Compazine PO 5 mg Q6HR PRN Administration Nausea / Vomiting Sodium Chloride 10 ml 10/02/19 11:05 10/04/19 19:15 Normal Saline Flush 0.9% IVP 10 ml PRN PRN Administration NEEDED PER PROVIDER ORDERS Sodium Chloride 10 ml 10/02/19 17:00 10/07/19 08:13 Normal Saline Flush 0.9% IVP 10 ml 0100,0900,1700 TASHIA Administration - Lab Result Fish Bone Diagrams: 10/07/19 05:10 10/07/19 05:10 - Additional Planning My Orders: My Active Orders 10/07/19 07:39 Incentive Spirometry - RT [RC] TID 10/07/19 09:00 polyethylene glycoL 3350 [Miralax] 17 gm PO DAILY 10/07/19 10:40 LACTIC ACID, VENOUS [CHEM] Urgent 10/07/19 10:47 Telemetry-Discontinue [RC] .ONCE 10/08/19 05:00 BMP - BASIC METABOLIC PANEL [CHEM] DAILYLAB CBC - COMP BLD CT W/AUTO DIFF [HEME] DAILYLAB Subjective - Subjective Patient Reports: Nausea Objective Vital Signs: Vital Signs - 24 hr 10/06/19 10/06/19 10/06/19 11:26 16:37 20:13 Temperature 37.0 C 36.4 C L 37.1 C Heart Rate [ 87 101 H 94 Brachial] Respiratory 18 20 16 Rate Blood Pressure 146/84 H 135/79 H 151/80 H [Left Brachial artery] O2 Saturation 93 94 94 10/07/19 10/07/19 10/07/19 01:00 05:00 09:00 Temperature 36.8 C 36.8 C 36.8 C Heart Rate [ 97 78 Brachial] Respiratory 18 18 18 Rate Blood Pressure 157/94 H 167/84 H 162/88 H [Left Brachial artery] O2 Saturation 96 93 98 Oxygen O2 Source Room air I&O (Last 24 Hrs): Intake and Output Totals x24h 10/05/19 10/06/19 10/07/19 23:59 23:59 23:59 Intake Total 0 1482.5 431.666 Output Total 2626 575 225 Balance -586 907.5 206.666 General: Alert, Oriented x3, No acute distress HEENT: Atraumatic Neck: Supple Lymphatic: no adenopathy Neuro: Alert, Non Focal, Oriented Times 3 Cardiovascular: Regular rate, Normal S1, Normal S2 Respiratory: Chest non-tender, No respiratory distress Abdomen: Normal bowel sounds, No tenderness Extremities: Normal pulses - Results Results: Laboratory Results WBC 14.9 x10^3/uL (4.8-10.8) H 10/07/19 05:10 RBC 3.61 10^6/uL (4.20-5.40) L 10/07/19 05:10 Hgb 11.5 g/dL (12.0-16.0) L 10/07/19 05:10 Hct 32.9 % (37.0-47.0) L 10/07/19 05:10 MCV 91.1 fL (81.0-99.0) 10/07/19 05:10 MCH 31.9 pg (27.0-31.0) H 10/07/19 05:10 MCHC 35.0 g/dL (32.0-36.0) 10/07/19 05:10 RDW 14.3 % (12.0-15.0) 10/07/19 05:10 Plt Count 223 10^3/uL (130-450) 10/07/19 05:10 MPV 11.2 fL (7.9-10.8) H 10/07/19 05:10 Neut # (Auto) 13.6 10^3/uL (1.5-6.6) H 10/07/19 05:10 Lymph # (Auto) 0.5 10^3/uL (1.5-3.5) L 10/07/19 05:10 [place] # (Auto) 0.7 10^3/uL (0.0-1.0) 10/07/19 05:10 Eos # (Auto) 0.0 10^3/uL (0.0-0.7) 10/07/19 05:10 Baso # (Auto) 0.0 10^3/uL (0.0-0.1) 10/07/19 05:10 Absolute Nucleated RBC 0.00 x10^3/uL 10/07/19 05:10 Nucleated RBC % 0.0 /100WBC 10/07/19 05:10 PT 13.0 secs (9.9-12.6) H 10/02/19 06:55 INR 1.1 (0.8-1.2) 10/02/19 06:55 APTT 28.5 secs (24.9-33.3) 10/02/19 06:55 Sodium 130 mmol/L (135-145) L 10/07/19 05:10 Potassium 3.3 mmol/L (3.5-5.0) L 10/07/19 05:10 Chloride 91 mmol/L (101-111) L 10/07/19 05:10 Carbon Dioxide 26 mmol/L (21-32) 10/07/19 05:10 Anion Gap 13.0 (6-13) 10/07/19 05:10 BUN 12 mg/dL (6-20) 10/07/19 05:10 Creatinine 0.5 mg/dL (0.4-1.0) 10/07/19 05:10 Estimated GFR (MDRD) 117 (>89) 10/07/19 05:10 Glucose 153 mg/dL (70-100) H 10/07/19 05:10 POC Whole Bld Glucose 132 mg/dL (70 - 100) H 10/06/19 16:32 Calcium 9.0 mg/dL (8.5-10.3) 10/07/19 05:10 Magnesium 1.9 mg/dL (1.7-2.8) 10/02/19 14:10 Total Bilirubin 0.9 mg/dL (0.2-1.0) 10/02/19 06:55 AST 18 IU/L (10-42) 10/02/19 06:55 ALT 13 IU/L (10-60) 10/02/19 06:55 Alkaline Phosphatase 61 IU/L (42-121) 10/02/19 06:55 Total Protein 6.9 g/dL (6.7-8.2) 10/02/19 06:55 Albumin 4.2 g/dL (3.2-5.5) 10/02/19 06:55 Globulin 2.7 g/dL (2.1-4.2) 10/02/19 06:55 Albumin/Globulin Ratio 1.6 (1.0-2.2) 10/02/19 06:55 Lipase 27 U/L (22-51) 10/02/19 06:55 Urine Color YELLOW 10/02/19 17:15 Urine Clarity CLEAR (CLEAR) 10/02/19 17:15 Urine pH 7.0 PH (5.0-7.5) 10/02/19 17:15 Ur Specific [place] 1.010 (1.002-1.030) 10/02/19 17:15 Urine Protein NEGATIVE mg/dL (NEGATIVE) 10/02/19 17:15 Urine Glucose (UA) NEGATIVE mg/dL (NEGATIVE) 10/02/19 17:15 Urine Ketones TRACE mg/dL (NEGATIVE) 10/02/19 17:15 Urine Occult Blood SMALL (NEGATIVE) H 10/02/19 17:15 Urine Nitrite NEGATIVE (NEGATIVE) 10/02/19 17:15 Urine Bilirubin NEGATIVE (NEGATIVE) 10/02/19 17:15 Urine Urobilinogen 0.2 (NORMAL) E.U./dL (NORMAL) 10/02/19 17:15 Ur Leukocyte Esterase NEGATIVE (NEGATIVE) 10/02/19 17:15 Urine RBC 0-5 /HPF (0-5) 10/02/19 17:15 Urine WBC 0-3 /HPF (0-5) 10/02/19 17:15 Ur Squamous Epith Cells NONE SEEN (<= Few) 10/02/19 17:15 Urine Bacteria None Seen /HPF (None Seen) 10/02/19 17:15 Ur Microscopic Review INDICATED 10/02/19 17:15 Urine Culture Comments NOT INDICATED 10/02/19 17:15 Coronavirus (PCR) NEGATIVE 10/05/19 06:17 Blood Type A POSITIVE 10/03/19 14:14 Blood Type Recheck A POSITIVE 10/03/19 13:57 Antibody Screen NEGATIVE 10/03/19 14:14 Crossmatch IS Only See Detail 10/03/19 14:14 Sepsis Event Note (H) - Evaluation Current Stage of Sepsis: Ruled out ABX Reporting Has patient been on IV antibiotics over the past 48 hours?: No Current Medications - Current Medications Current Medications: Active Medications Acetaminophen (Tylenol) 650 mg PO Q4HR PRN PRN Reason: Pain 1 to 4 Last Admin: 10/04/19 12:26 Dose: 650 mg Documented by: Amlodipine Besylate (Norvasc) 5 mg PO ONCE TASHIA Stop: 10/07/19 13:00 Amlodipine Besylate (Norvasc) 10 mg PO DAILY TASHIA Carboxymethylcellulose (Refresh 1% Ophth Drops) 1 drops EACHEYE PRN PRN PRN Reason: Dry Eye Last Admin: 10/03/19 05:41 Dose: 1 drops Documented by: Donepezil HCl (Aricept) 5 mg PO DAILY [facility] Last Admin: 10/07/19 08:12 Dose: 5 mg Documented by: Famotidine (Pepcid) 20 mg PO BID [facility] Last Admin: 10/07/19 08:12 Dose: 20 mg Documented by: Hydromorphone HCl (Dilaudid Inj Syringe) 0.5 mg IVP Q2H PRN PRN Reason: PAIN Last Admin: 10/07/19 00:52 Dose: 0.5 mg Documented by: Potassium Chloride (Potassium Chloride) 10 meq in 100 mls @ 100 mls/hr IV Q1H [facility] Stop: 10/07/19 12:59 Last Admin: 10/07/19 11:07 Dose: 100 mls/hr Documented by: Potassium Chloride/Dextrose/Sod Cl (D5.45ns W/20 Meq Kcl) 1,000 mls @ 75 mls/hr IV .[id number] [facility] Lisinopril (Zestril) 40 mg PO DAILY [facility] Last Admin: 10/07/19 08:12 Dose: 40 mg Documented by: Ondansetron HCl (Zofran Inj) 4 mg IVP Q6HR PRN PRN Reason: Nausea / Vomiting Last Admin: 10/07/19 08:10 Dose: 4 mg Documented by: Oxybutynin Chloride (Ditropan) 5 mg PO QPM [facility] Last Admin: 10/06/19 21:42 Dose: 5 mg Documented by: Oxycodone HCl (Roxicodone) 5 mg PO Q4HR PRN PRN Reason: PAIN Last Admin: 10/05/19 06:21 Dose: 5 mg Documented by: Polyethylene Glycol (Miralax) 17 gm PO DAILY [facility] Last Admin: 10/07/19 08:13 Dose: 17 gm Documented by: Prochlorperazine Maleate (Compazine) 5 mg PO Q6HR PRN PRN Reason: Nausea / Vomiting Last Admin: 10/07/19 04:45 Dose: 5 mg Documented by: Sodium Chloride (Normal Saline Flush 0.9%) 10 ml IVP PRN PRN PRN Reason: NEEDED PER PROVIDER ORDERS Last Admin: 10/04/19 19:15 Dose: 10 ml Documented by: Sodium Chloride (Normal Saline Flush 0.9%) 10 ml IVP 0100,0900,1700 TASHIA Last Admin: 10/07/19 08:13 Dose: 10 ml Documented by: Amlodipine Besylate 5 mg PO DAILY 11/17/15 Aspirin EC [Ecotrin] 325 mg PO DAILY 10/02/19 Calcium Carbonate [Calcium] 600 mg PO DAILY 10/02/19 Donepezil [Aricept] 5 mg PO QPM 10/02/19 Lisinopril/Hydrochlorothiazide [Lisinopril-Hctz 20-12.5 mg Tab] 2 each PO DAILY 10/02/19 Oxybutynin [Ditropan] 5 mg PO QPM 10/02/19 Pravastatin [Pravachol] 40 mg PO DAILY 10/02/19
[2019-10-07] MEDS ORDERED: amLODIPine 5 MG TABLET PO SCH (12:00)
[2019-10-07] MEDS ORDERED: D5.45NS W/20 MEQ KCL 1,000 ML IV SCH (14:00)
[2019-10-07] MEDS: SODIUM CHLORIDE FLUSH 0.9% 10 ML SYRINGE IVP PRN (18:12)
[2019-10-07] MEDS: TRACE ELEMENTS V IV SCH ×5 (20:20)
[2019-10-07] MEDS: MULTIVITAMIN IV SCH ×5 (20:20)
[2019-10-07] MEDS: [UNRECOGNIZED DRUG - OTHER] IV SCH ×5 (20:20)
[2019-10-07] MEDS: PPN IV SCH ×5 (20:20)
[2019-10-07] MEDS: FAT EMULSION 20% 250 ML IV SCH (20:21)
[2019-10-07] MEDS: OXYBUTYNIN 5MG TABLET PO SCH (21:32)
[2019-10-08] MEDS: SODIUM CHLORIDE FLUSH 0.9% 10 ML SYRINGE IVP SCH ×3 (02:38→15:31)
[2019-10-08 06:10] LABS: BASOPHILS % (AUTO) 0.2 %; EOSINOPHILS % (AUTO) 0.2 %; HGB - HEMOGLOBIN 10.7 g/dL (12.0-16.0); LYMPHOCYTES # (AUTO) 0.6 10^3/uL (1.5-3.5); LYMPHOCYTES % (AUTO) 5.1 %; MEAN CORPUSCULAR HEMOGLOBIN 32.2 pg (27.0-31.0); MEAN CORPUSCULAR HGB CONC 35.1 g/dL (32.0-36.0); MEAN CORPUSCULAR VOLUME 91.9 fL (81.0-99.0); MEAN PLATELET VOLUME 10.9 fL (7.9-10.8); MONOCYTES # (AUTO) 0.9 10^3/uL (0.0-1.0); MONOCYTES % (AUTO) 7.3 %; NEUTROPHILS # (AUTO) 10.6 10^3/uL (1.5-6.6); NEUTROPHILS % (AUTO) 86.5 %; PLT - PLATELET COUNT 159 10^3/uL (130-450); RED BLOOD COUNT 3.32 10^6/uL (4.20-5.40); RED CELL DISTRIBUTION WIDTH 14.2 % (12.0-15.0); WHITE BLOOD COUNT 12.3 x10^3/uL (4.8-10.8)
[2019-10-08 06:28] LABS: ALBUMIN 3.1 g/dL (3.2-5.5); ALBUMIN/GLOBULIN RATIO 1.1 (1.0-2.2); BILIRUBIN,TOTAL 0.6 mg/dL (0.2-1.0); CALCIUM 8.7 mg/dL (8.5-10.3); CREATININE 0.4 mg/dL (0.4-1.0); MAGNESIUM 2.1 mg/dL (1.7-2.8); PHOSPHORUS 2.6 mg/dL (2.5-4.6); TOTAL PROTEIN 5.8 g/dL (6.7-8.2)
[2019-10-08] MEDS ORDERED: amLODIPine 5 MG TABLET PO SCH (09:00)
[2019-10-08] MEDS: ONDANSETRON 4 MG/2 ML VIAL IVP PRN (09:10)
[2019-10-08] MEDS: POTASSIUM CHLOR 10 MEQ/100 ML 10 MEQ/100 ML BAG IV SCH ×4 (09:21→15:30)
[2019-10-08] MEDS ORDERED: hydrALAZINE INJ 20 MG/ML VIAL IVP PRN (10:37)
[2019-10-08] MEDS ORDERED: MORPHINE 2 MG/ML CARPUJECT IVP PRN (10:48)
[2019-10-08] MEDS: polyethylene glycoL 3350 17 GM PACKET PO SCH (11:08)
[2019-10-08] MEDS: DONEPEZIL 5 MG TABLET PO SCH (11:09)
[2019-10-08] MEDS: lisinopriL 20 MG TABLET PO SCH (11:09)
--- NOTE | 2019-10-08 11:24 | PROVIDER PROGRESS NOTE ---
Assessment/Plan - Problem List (1) Status post colectomy Assessment/Plan: 10/07 Patient feel slightly better, less nausea and slight better for her abdomen distension. Patient is started to have PPN and NG tube by surgeon.Patient seems tolerated.Patient has 1650 gastroc drainage by NG on yesterday, 550 cc on today. We will switch PO medication to the intravenous medication, Continue laboratory monitoring when uses PPN.Encouraged patient safely walk with nurse.Continue follow-up with surgeon 10/06, patient report she is still have nausea and small amount of vomiting, poor appetite. patient still has distended pelvis, patient WBC today is elevated to 14.8, Patient has no fever, but the patient report his abdominal pain basically is as after she was s/p of procedure, she does not increase his abdominal pain, patient has active bowel sounds in the 4 quadrant. 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 it can cause pt feel nausea and distended pelvis. For this reason, pt has palliative care consult and will followup with pt. Plan:Continue follow-up with surgeon, continue clear diet today, continue pain control. 61, Patient report she passed gas and had small bowel movement. But she also reports she is so weakness, she does not want to eat anything in the morning, report nausea but no vomiting. Continue follow-up with surgeon, Continue status post of colectomy Care. Continue physical and Occupational Therapy, encourage patient ambulation 09/28 Patient is status post of subtotal colectomy day 1, Patient tolerated of full liquid diet, but the patient did not pass gas or bowel movement yet. We will continue follow-up with her surgeon, continue pain control, continue out the bed with activity, continue incentive spirometery. (2) Acute lower GI bleeding Assessment/Plan: 10/07, hemoglobin is stable, no GI bleed 10/06, hemoglobin increases to 11.5, patient denies more GI bleed 10-05, hemoglobin improved, patient denies any more GI bleed 611, patient hemoglobin slightly increased to10.7 today. patient denies any more GI bleed, patient is s/p of colectomy, we will continue monitor patient hemoglobin. (3) Anemia due to GI blood loss Assessment/Plan: 10/05, hemoglobin is 11.1 improve, patient denied GI bleed 611, Patient's hemoglobin is 10.7, stable, patient denies any more GI bleed, we will continue monitor patient if GI bleed (4) Lung mass Assessment/Plan: 10/05, patient had palliative care consult, patient will follow-up with PCP and Palliative care for further management As outpatient. 09/28, patient And her family knew she has a lung mass, patient had palliative care consult on yesterday, patient had a surgery on yesterday for her GI bleed, we will continue supportive for patient, consult with manager social media for pt's continuing care and safely d/c plan. (5) Lymphadenopathy, retroperitoneal Assessment/Plan: ,patient had palliative care consult, patient will follow-up with PCP and Palliative care for further management As outpatient. 09/28, patient know lymphadenopathy at her retroperitoneal. continue support pt. (6) Hypokalemia Assessment/Plan: 10/06, potassium 3.3, will replacement, BMP monitor 10/05, potassium 3.2, will replacement, BMP monitor Result (7) Hyponatremia Assessment/Plan: 10/06, Sodium today is still 130, patient has a history of chronic hyponatremia 10/05, Sodium today is 130, patient has a history of chronic hyponatremia, we will give the patient 75 cc/h of normal saline, it seems the patient has mild dehydration today and poor oral intake, BMP monitor Sodium is 133, Continue with IV saline hydration. Follow BMP daily (8) Hx of essential hypertension Assessment/Plan: 619, patient has slightly elevated blood pressure, will increase his amlodipine to 10 mg daily 10/05, stable Patient blood pressure is normal (9) Dementia Assessment/Plan: Chronic, She was on donezepil before this admission, continue Donezepil. (10)neutrocytosis/leukocytosis 10/07, WBC is 12.3 today, likely still reactive From recently surgery. 10/06, WBC is 14.9 today elevated compared with yesterday, but the patient has no fever, patient does not increase his abdominal pain or tenderness, patient has active bowel sounds in 4 quadrants. it is unlikely pt has acute infection evidence at this time. it is likely reaction after s/p procedure. We will continue monitor with CBC, continue monitor vital signs, continue follow-up with surgeon. 618, WBC is 11.2, slight elevated today. Patient denies abdominal pain, patient still has some distention of the abdomen but she also state it is her chronic condition. Patient denies dysuria, patient has no cough or wheezing or respiratory symptoms, Will continue CBC monitoring. Patient has WBC 17,But the patient has no fever, patient's abdomen pain is good control. patient is status post surgery on yesterday, it could be reactive or stress to cause her to have leukocytosis or leukocytosis, patient had antibiotic finished today, It is unlikely patient has ongoing infection, will continue monitor CBC, and vital monitor - Current Meds Current Meds: Current Medications Generic Name Dose Route Start Last Admin Trade Name Freq PRN Reason Stop Dose Admin Acetaminophen 650 mg 10/02/19 11:05 10/04/19 12:26 Tylenol PO 650 mg Q4HR PRN Administration Pain 1 to 4 Amlodipine Besylate 10 mg 10/08/19 09:00 10/08/19 11:09 Norvasc PO Not Given DAILY TASHIA Carboxymethylcellulose 1 drops 10/02/19 23:28 10/03/19 05:41 Refresh 1% Ophth Drops EACHEYE 1 drops PRN PRN Administration Dry Eye Donepezil HCl 5 mg 10/03/19 10:30 10/08/19 11:09 Aricept PO Not Given DAILY TASHIA Hydromorphone HCl 0.5 mg 10/03/19 19:12 10/07/19 00:52 Dilaudid Inj Syringe IVP 0.5 mg Q2H PRN Administration PAIN Multivitamins 10 ml/ Chromium/ 2,028.5 mls @ 83 mls/hr 10/07/19 19:00 10/07/19 20:20 Copper/Manganese/Seleni/Zn 1 IV 83 mls/hr ml/ Sodium Chloride 30 meq/ Q24H TASHIA Administration Potassium Chloride 20 meq/ Amino Acids/Electrolytes/ Dextrose Protocol Fat Emulsion Intravenous 250 mls @ 21 mls/hr 10/07/19 19:00 10/08/19 09:22 Intralipid 20% IV Infused Q24H TASHIA Infusion Potassium Chloride 10 meq in 100 mls @ 100 mls/hr 10/08/19 08:00 10/08/19 11:07 Potassium Chloride IV 10/08/19 11:59 50 mls/hr Q1H TASHIA Administration Lisinopril 40 mg 10/06/19 09:00 10/08/19 11:09 Zestril PO Not Given DAILY TASHIA Ondansetron HCl 4 mg 10/02/19 11:05 10/08/19 09:10 Zofran Inj IVP 4 mg Q6HR PRN Administration Nausea / Vomiting Oxybutynin Chloride 5 mg 10/02/19 21:00 10/07/19 21:32 Ditropan PO 5 mg QPM TASHIA Administration Oxycodone HCl 5 mg 10/03/19 19:12 10/05/19 06:21 Roxicodone PO 5 mg Q4HR PRN Administration PAIN Polyethylene Glycol 17 gm 10/07/19 09:00 10/08/19 11:08 Miralax PO Not Given DAILY TASHIA Prochlorperazine Maleate 5 mg 10/03/19 19:18 10/07/19 04:45 Compazine PO 5 mg Q6HR PRN Administration Nausea / Vomiting Sodium Chloride 10 ml 10/02/19 11:05 10/07/19 18:12 Normal Saline Flush 0.9% IVP 10 ml PRN PRN Administration NEEDED PER PROVIDER ORDERS Sodium Chloride 10 ml 10/02/19 17:00 10/08/19 09:11 Normal Saline Flush 0.9% IVP 10 ml 0100,0900,1700 TASHIA Administration - Lab Result Fish Bone Diagrams: 10/08/19 05:45 10/08/19 05:45 - Additional Planning My Orders: My Active Orders 10/07/19 10:47 Telemetry-Discontinue [RC] .ONCE 10/08/19 08:00 Potassium Chlor 10 Meq/100 ml [Potassium Chloride] 10 meq in 100 ml IV Q1H 10/08/19 09:00 amLODIPine [Norvasc] 10 mg PO DAILY 10/08/19 10:37 hydrALAZINE INJ [Apresoline Inj] 10 mg IVP Q6H PRN 10/08/19 10:48 Morphine Inj (Carpuject) [Morphine (Carpuject)] 2 mg IVP Q4HR PRN 10/08/19 12:00 Enalaprilat [Vasotec Inj] 1.25 mg IVP Q6HR 10/09/19 07:00 Pantoprazole [Protonix] 40 mg IVP QDAC Subjective - Subjective Patient Reports: Feeling Better Objective Vital Signs: Vital Signs - 24 hr 10/07/19 10/08/19 15:58 00:00 Temperature 36.4 C L 36.4 C L Heart Rate [ 94 82 Brachial] Respiratory 18 18 Rate Blood Pressure 142/76 H [Left Brachial artery] Blood Pressure 152/72 H [Right Brachial artery] O2 Saturation 93 94 Oxygen O2 Source Room air I&O (Last 24 Hrs): Intake and Output Totals x24h 10/06/19 10/07/19 10/08/19 23:59 23:59 23:59 Intake Total 1482.5 2900.761 2282.333 Output Total 575 1975 550 Balance 907.5 -15.001 908.333 General: Alert, Oriented x3, No acute distress HEENT: Atraumatic, PERRLA Neck: Supple Lymphatic: no adenopathy Neuro: Alert, Non Focal, Oriented Times 3 Cardiovascular: Regular rate, Normal S1, Normal S2 Respiratory: Chest non-tender, No respiratory distress Abdomen: Normal bowel sounds, Soft, No tenderness Extremities: Normal pulses - Results Results: Laboratory Results WBC 12.3 x10^3/uL (4.8-10.8) H 10/08/19 05:45 RBC 3.32 10^6/uL (4.20-5.40) L 10/08/19 05:45 Hgb 10.7 g/dL (12.0-16.0) L 10/08/19 05:45 Hct 30.5 % (37.0-47.0) L 10/08/19 05:45 MCV 91.9 fL (81.0-99.0) 10/08/19 05:45 MCH 32.2 pg (27.0-31.0) H 10/08/19 05:45 MCHC 35.1 g/dL (32.0-36.0) 10/08/19 05:45 RDW 14.2 % (12.0-15.0) 10/08/19 05:45 Plt Count 159 10^3/uL (130-450) 10/08/19 05:45 MPV 10.9 fL (7.9-10.8) H 10/08/19 05:45 Neut # (Auto) 10.6 10^3/uL (1.5-6.6) H 10/08/19 05:45 Lymph # (Auto) 0.6 10^3/uL (1.5-3.5) L 10/08/19 05:45 [place] # (Auto) 0.9 10^3/uL (0.0-1.0) 10/08/19 05:45 Eos # (Auto) 0.0 10^3/uL (0.0-0.7) 10/08/19 05:45 Baso # (Auto) 0.0 10^3/uL (0.0-0.1) 10/08/19 05:45 Absolute Nucleated RBC 0.00 x10^3/uL 10/08/19 05:45 Nucleated RBC % 0.0 /100WBC 10/08/19 05:45 PT 13.0 secs (9.9-12.6) H 10/02/19 06:55 INR 1.1 (0.8-1.2) 10/02/19 06:55 APTT 28.5 secs (24.9-33.3) 10/02/19 06:55 Sodium 129 mmol/L (135-145) L 10/08/19 05:45 Potassium 3.2 mmol/L (3.5-5.0) L 10/08/19 05:45 Chloride 91 mmol/L (101-111) L 10/08/19 05:45 Carbon Dioxide 29 mmol/L (21-32) 10/08/19 05:45 Anion Gap 9.0 (6-13) 10/08/19 05:45 BUN 17 mg/dL (6-20) 10/08/19 05:45 Creatinine 0.4 mg/dL (0.4-1.0) 10/08/19 05:45 Estimated GFR (MDRD) 151 (>89) 10/08/19 05:45 Glucose 138 mg/dL (70-100) H 10/08/19 05:45 POC Whole Bld Glucose 122 mg/dL (70 - 100) H 10/07/19 16:49 Lactic Acid 1.7 mmol/L (0.5-2.2) 10/07/19 10:40 Calcium 8.7 mg/dL (8.5-10.3) 10/08/19 05:45 Phosphorus 2.6 mg/dL (2.5-4.6) 10/08/19 05:45 Magnesium 2.1 mg/dL (1.7-2.8) 10/08/19 05:45 Total Bilirubin 0.6 mg/dL (0.2-1.0) 10/08/19 05:45 AST 15 IU/L (10-42) 10/08/19 05:45 ALT 13 IU/L (10-60) 10/08/19 05:45 Alkaline Phosphatase 49 IU/L (42-121) 10/08/19 05:45 Total Protein 5.8 g/dL (6.7-8.2) L 10/08/19 05:45 Albumin 3.1 g/dL (3.2-5.5) L 10/08/19 05:45 Globulin 2.7 g/dL (2.1-4.2) 10/08/19 05:45 Albumin/Globulin Ratio 1.1 (1.0-2.2) 10/08/19 05:45 Prealbumin 10 mg/dL (18-45) L 10/08/19 05:45 Triglycerides 125 mg/dL (-149) 10/08/19 05:45 Lipase 27 U/L (22-51) 10/02/19 06:55 Urine Color YELLOW 10/02/19 17:15 Urine Clarity CLEAR (CLEAR) 10/02/19 17:15 Urine pH 7.0 PH (5.0-7.5) 10/02/19 17:15 Ur Specific [place] 1.010 (1.002-1.030) 10/02/19 17:15 Urine Protein NEGATIVE mg/dL (NEGATIVE) 10/02/19 17:15 Urine Glucose (UA) NEGATIVE mg/dL (NEGATIVE) 10/02/19 17:15 Urine Ketones TRACE mg/dL (NEGATIVE) 10/02/19 17:15 Urine Occult Blood SMALL (NEGATIVE) H 10/02/19 17:15 Urine Nitrite NEGATIVE (NEGATIVE) 10/02/19 17:15 Urine Bilirubin NEGATIVE (NEGATIVE) 10/02/19 17:15 Urine Urobilinogen 0.2 (NORMAL) E.U./dL (NORMAL) 10/02/19 17:15 Ur Leukocyte Esterase NEGATIVE (NEGATIVE) 10/02/19 17:15 Urine RBC 0-5 /HPF (0-5) 10/02/19 17:15 Urine WBC 0-3 /HPF (0-5) 10/02/19 17:15 Ur Squamous Epith Cells NONE SEEN (<= Few) 10/02/19 17:15 Urine Bacteria None Seen /HPF (None Seen) 10/02/19 17:15 Ur Microscopic Review INDICATED 10/02/19 17:15 Urine Culture Comments NOT INDICATED 10/02/19 17:15 Coronavirus (PCR) NEGATIVE 10/05/19 06:17 Blood Type A POSITIVE 10/03/19 14:14 Blood Type Recheck A POSITIVE 10/03/19 13:57 Antibody Screen NEGATIVE 10/03/19 14:14 Crossmatch IS Only See Detail 10/03/19 14:14 ABX Reporting Has patient been on IV antibiotics over the past 48 hours?: No Current Medications - Current Medications Current Medications: Active Medications Acetaminophen (Tylenol) 650 mg PO Q4HR PRN PRN Reason: Pain 1 to 4 Last Admin: 10/04/19 12:26 Dose: 650 mg Documented by: Amlodipine Besylate (Norvasc) 10 mg PO DAILY [facility] Last Admin: 10/08/19 11:09 Dose: Not Given Documented by: Carboxymethylcellulose (Refresh 1% Ophth Drops) 1 drops EACHEYE PRN PRN PRN Reason: Dry Eye Last Admin: 10/03/19 05:41 Dose: 1 drops Documented by: Donepezil HCl (Aricept) 5 mg PO DAILY [facility] Last Admin: 10/08/19 11:09 Dose: Not Given Documented by: Enalaprilat (Vasotec Inj) 1.25 mg IVP Q6HR TASHIA Hydralazine HCl (Apresoline Inj) 10 mg IVP Q6H PRN PRN Reason: Hypertensive Emergency Hydromorphone HCl (Dilaudid Inj Syringe) 0.5 mg IVP Q2H PRN PRN Reason: PAIN Last Admin: 10/07/19 00:52 Dose: 0.5 mg Documented by: Multivitamins 10 ml/ Chromium/Copper/Manganese/Seleni/Zn 1 ml/ Sodium Chloride 30 meq/Potassium Chloride 20 meq/Amino Acids/Electrolytes/Dextrose 2,028.5 mls @ 83 mls/hr IV Q24H TASHIA; Protocol Last Admin: 10/07/19 20:20 Dose: 83 mls/hr Documented by: Fat Emulsion Intravenous (Intralipid 20%) 250 mls @ 21 mls/hr IV Q24H [facility] Last Infusion: 10/08/19 09:22 Dose: Infused Documented by: Potassium Chloride (Potassium Chloride) 10 meq in 100 mls @ 100 mls/hr IV Q1H [facility] Stop: 10/08/19 11:59 Last Admin: 10/08/19 11:07 Dose: 50 mls/hr Documented by: Lisinopril (Zestril) 40 mg PO DAILY [facility] Last Admin: 10/08/19 11:09 Dose: Not Given Documented by: Morphine Sulfate (Morphine (Carpuject)) 2 mg IVP Q4HR PRN PRN Reason: PAIN Ondansetron HCl (Zofran Inj) 4 mg IVP Q6HR PRN PRN Reason: Nausea / Vomiting Last Admin: 10/08/19 09:10 Dose: 4 mg Documented by: Oxybutynin Chloride (Ditropan) 5 mg PO QPM [facility] Last Admin: 10/07/19 21:32 Dose: 5 mg Documented by: Oxycodone HCl (Roxicodone) 5 mg PO Q4HR PRN PRN Reason: PAIN Last Admin: 10/05/19 06:21 Dose: 5 mg Documented by: Pantoprazole Sodium (Protonix) 40 mg IVP QDAC [facility] Polyethylene Glycol (Miralax) 17 gm PO DAILY [facility] Last Admin: 10/08/19 11:08 Dose: Not Given Documented by: Prochlorperazine Maleate (Compazine) 5 mg PO Q6HR PRN PRN Reason: Nausea / Vomiting Last Admin: 10/07/19 04:45 Dose: 5 mg Documented by: Sodium Chloride (Normal Saline Flush 0.9%) 10 ml IVP PRN PRN PRN Reason: NEEDED PER PROVIDER ORDERS Last Admin: 10/07/19 18:12 Dose: 10 ml Documented by: Sodium Chloride (Normal Saline Flush 0.9%) 10 ml IVP 0100,0900,1700 [facility] Last Admin: 10/08/19 09:11 Dose: 10 ml Documented by: Amlodipine Besylate 5 mg PO DAILY 11/17/15 Aspirin EC [Ecotrin] 325 mg PO DAILY 10/02/19 Calcium Carbonate [Calcium] 600 mg PO DAILY 10/02/19 Donepezil [Aricept] 5 mg PO QPM 10/02/19 Lisinopril/Hydrochlorothiazide [Lisinopril-Hctz 20-12.5 mg Tab] 2 each PO DAILY 10/02/19 Oxybutynin [Ditropan] 5 mg PO QPM 10/02/19 Pravastatin [Pravachol] 40 mg PO DAILY 10/02/19
--- NOTE | 2019-10-08 12:47 | PROVIDER PROGRESS NOTE ---
Subjective - General Admit Date: 10/03/19 Procedure Date: 10/03/19 Post Op Days: 5 Procedure Performed: Subtotal colectomy with ileo-sigmoid anastomosis - Review of Systems Wound/Incisions: positive: Dressing dry and intact Drain Type: None Drain Output Description: NA General: positive: Weakness, Malaise HEENT: positive: No symptoms Pulmonary: positive: No symptoms Cardiovascular: positive: No symptoms Gastrointestinal: positive: Nausea, Vomiting, Abdominal pain, Other (NG tube placed by me yesterday for significant abdominal distention and episodic bilious emesis prior to my evaluation in the a.m. Output of near 1500 feculent output. Today less distended with reports of some liquid bowel movements.) Neurological: Psychiatric: positive: Confusion All Other Systems: positive: Reviewed and negative Objective - Patient Data Vital Signs: Vital Signs x48h Temp Pulse Resp BP Pulse Ox 10/08/19 11:47 36.5 C 96 22 142/91 H 95 Weight: Weight 10/06/19 10/07/19 10/08/19 23:59 23:59 23:59 Weight (kg) 69 kg Intake & Output: Intake and Output Totals x24h 10/06/19 10/07/19 10/08/19 23:59 23:59 23:59 Intake Total 1482.5 9345.997 6382.333 Output Total 575 1975 550 Balance 907.5 -15.001 938.333 - Lab Results Lab Results: 10/08/19 05:45 10/08/19 05:45 Other Lab Results: Lab Results x24hrs 10/08/19 10/08/19 10/08/19 Range/Units 05:45 05:45 05:43 WBC 12.3 H (4.8-10.8) x10^3/uL RBC 3.32 L (4.20-5.40) 10^6/uL Hgb 10.7 L (12.0-16.0) g/dL Hct 30.5 L (37.0-47.0) % MCV 91.9 (81.0-99.0) fL MCH 32.2 H (27.0-31.0) pg MCHC 35.1 (32.0-36.0) g/dL RDW 14.2 (12.0-15.0) % Plt Count 159 (130-450) 10^3/uL MPV 10.9 H (7.9-10.8) fL Neut # (Auto) 10.6 H (1.5-6.6) 10^3/uL Lymph # (Auto) 0.6 L (1.5-3.5) 10^3/uL [place] # (Auto) 0.9 (0.0-1.0) 10^3/uL Eos # (Auto) 0.0 (0.0-0.7) 10^3/uL Baso # (Auto) 0.0 (0.0-0.1) 10^3/uL Absolute Nucleated RBC 0.00 x10^3/uL Nucleated RBC % 0.0 /100WBC Sodium 129 L (135-145) mmol/L Potassium 3.2 L (3.5-5.0) mmol/L Chloride 91 L (101-111) mmol/L Carbon Dioxide 29 (21-32) mmol/L Anion Gap 9.0 (6-13) BUN 17 (6-20) mg/dL Creatinine 0.4 (0.4-1.0) mg/dL Estimated GFR (MDRD) 151 (>89) Glucose 138 H (70-100) mg/dL POC Whole Bld Glucose 139 H (70 - 100) mg/dL Calcium 8.7 (8.5-10.3) mg/dL Phosphorus 2.6 (2.5-4.6) mg/dL Magnesium 2.1 (1.7-2.8) mg/dL Total Bilirubin 0.6 (0.2-1.0) mg/dL AST 15 (10-42) IU/L ALT 13 (10-60) IU/L Alkaline Phosphatase 49 (42-121) IU/L Total Protein 5.8 L (6.7-8.2) g/dL Albumin 3.1 L (3.2-5.5) g/dL Globulin 2.7 (2.1-4.2) g/dL Albumin/Globulin Ratio 1.1 (1.0-2.2) Prealbumin 10 L (18-45) mg/dL Triglycerides 125 ( - 149) mg/dL 10/07/19 10/07/19 10/07/19 Range/Units 23:51 16:49 11:48 WBC (4.8-10.8) x10^3/uL RBC (4.20-5.40) 10^6/uL Hgb (12.0-16.0) g/dL Hct (37.0-47.0) % MCV (81.0-99.0) fL MCH (27.0-31.0) pg MCHC (32.0-36.0) g/dL RDW (12.0-15.0) % Plt Count (130-450) 10^3/uL MPV (7.9-10.8) fL Neut # (Auto) (1.5-6.6) 10^3/uL Lymph # (Auto) (1.5-3.5) 10^3/uL [place] # (Auto) (0.0-1.0) 10^3/uL Eos # (Auto) (0.0-0.7) 10^3/uL Baso # (Auto) (0.0-0.1) 10^3/uL Absolute Nucleated RBC x10^3/uL Nucleated RBC % /100WBC Sodium (135-145) mmol/L Potassium (3.5-5.0) mmol/L Chloride (101-111) mmol/L Carbon Dioxide (21-32) mmol/L Anion Gap (6-13) BUN (6-20) mg/dL Creatinine (0.4-1.0) mg/dL Estimated GFR (MDRD) (>89) Glucose (70-100) mg/dL POC Whole Bld Glucose 127 H 122 H 136 H (70 - 100) mg/dL Calcium (8.5-10.3) mg/dL Phosphorus (2.5-4.6) mg/dL Magnesium (1.7-2.8) mg/dL Total Bilirubin (0.2-1.0) mg/dL AST (10-42) IU/L ALT (10-60) IU/L Alkaline Phosphatase (42-121) IU/L Total Protein (6.7-8.2) g/dL Albumin (3.2-5.5) g/dL Globulin (2.1-4.2) g/dL Albumin/Globulin Ratio (1.0-2.2) Prealbumin (18-45) mg/dL Triglycerides ( - 149) mg/dL 06/18/20 Range/Units 20:54 WBC (4.8-10.8) x10^3/uL RBC (4.20-5.40) 10^6/uL Hgb (12.0-16.0) g/dL Hct (37.0-47.0) % MCV (81.0-99.0) fL MCH (27.0-31.0) pg MCHC (32.0-36.0) g/dL RDW (12.0-15.0) % Plt Count (130-450) 10^3/uL MPV (7.9-10.8) fL Neut # (Auto) (1.5-6.6) 10^3/uL Lymph # (Auto) (1.5-3.5) 10^3/uL [place] # (Auto) (0.0-1.0) 10^3/uL Eos # (Auto) (0.0-0.7) 10^3/uL Baso # (Auto) (0.0-0.1) 10^3/uL Absolute Nucleated RBC x10^3/uL Nucleated RBC % /100WBC Sodium (135-145) mmol/L Potassium (3.5-5.0) mmol/L Chloride (101-111) mmol/L Carbon Dioxide (21-32) mmol/L Anion Gap (6-13) BUN (6-20) mg/dL Creatinine (0.4-1.0) mg/dL Estimated GFR (MDRD) (>89) Glucose (70-100) mg/dL POC Whole Bld Glucose 129 H (70 - 100) mg/dL Calcium (8.5-10.3) mg/dL Phosphorus (2.5-4.6) mg/dL Magnesium (1.7-2.8) mg/dL Total Bilirubin (0.2-1.0) mg/dL AST (10-42) IU/L ALT (10-60) IU/L Alkaline Phosphatase (42-121) IU/L Total Protein (6.7-8.2) g/dL Albumin (3.2-5.5) g/dL Globulin (2.1-4.2) g/dL Albumin/Globulin Ratio (1.0-2.2) Prealbumin (18-45) mg/dL Triglycerides ( - 149) mg/dL - Current Medications Current Medications: Current Medications Generic Name Dose Route Start Last Admin Trade Name Freq PRN Reason Stop Dose Admin Acetaminophen 650 mg 10/02/19 11:05 10/04/19 12:26 Tylenol PO 650 mg Q4HR PRN Administration Pain 1 to 4 Amlodipine Besylate 10 mg 10/08/19 09:00 10/08/19 11:09 Norvasc PO Not Given DAILY [facility] Carboxymethylcellulose 1 drops 10/02/19 23:28 10/03/19 05:41 Refresh 1% Ophth Drops EACHEYE 1 drops PRN PRN Administration Dry Eye Donepezil HCl 5 mg 10/03/19 10:30 10/08/19 11:09 Aricept PO Not Given DAILY [facility] Hydromorphone HCl 0.5 mg 10/03/19 19:12 10/07/19 00:52 Dilaudid Inj Syringe IVP 0.5 mg Q2H PRN Administration PAIN Multivitamins 10 ml/ Chromium/ 2,028.5 mls @ 83 mls/hr 10/07/19 19:00 10/07/19 20:20 Copper/Manganese/Seleni/Zn 1 IV 83 mls/hr ml/ Sodium Chloride 30 meq/ Q24H TASHIA Administration Potassium Chloride 20 meq/ Amino Acids/Electrolytes/ Dextrose Protocol Fat Emulsion Intravenous 250 mls @ 21 mls/hr 10/07/19 19:00 10/08/19 09:22 Intralipid 20% IV Infused Q24H [facility] Infusion Lisinopril 40 mg 10/06/19 09:00 10/08/19 11:09 Zestril PO Not Given DAILY [facility] Ondansetron HCl 4 mg 10/02/19 11:05 10/08/19 09:10 Zofran Inj IVP 4 mg Q6HR PRN Administration Nausea / Vomiting Oxybutynin Chloride 5 mg 10/02/19 21:00 10/07/19 21:32 Ditropan PO 5 mg QPM TASHIA Administration Oxycodone HCl 5 mg 10/03/19 19:12 10/05/19 06:21 Roxicodone PO 5 mg Q4HR PRN Administration PAIN Polyethylene Glycol 17 gm 10/07/19 09:00 10/08/19 11:08 Miralax PO Not Given DAILY [facility] Prochlorperazine Maleate 5 mg 10/03/19 19:18 10/07/19 04:45 Compazine PO 5 mg Q6HR PRN Administration Nausea / Vomiting Sodium Chloride 10 ml 10/02/19 11:05 10/07/19 18:12 Normal Saline Flush 0.9% IVP 10 ml PRN PRN Administration NEEDED PER PROVIDER ORDERS Sodium Chloride 10 ml 10/02/19 17:00 10/08/19 09:11 Normal Saline Flush 0.9% IVP 10 ml 0100,[id number],1700 TASHIA Administration - Physical Exam Wound/Incisions: positive: Dressing dry and intact General Appearance: positive: Mild distress Eyes Bilateral: positive: Normal inspection, PERRL, EOMI ENT: positive: ENT inspection nml Neck: positive: Nml inspection Respiratory: positive: Chest non-tender, No respiratory distress. negative: Wheezes, Rales Cardiovascular: positive: Regular rate & rhythm Abdomen: positive: Tenderness (Positive distended, however less than yesterday, NG tube in place with bilious output. 2500 cc over the last 24 hours of NG tube drainage. Dressing intact. Positive tenderness to palpation. No rebound or guarding.), Abnml bowel sounds Skin: positive: Color nml Extremities: positive: Non-tender Neurologic/Psychiatric: positive: CN's nml (2-12), Disoriented to time. negative: Oriented x3, Disoriented to person Impression/Plan - Problem List Problem List: 84 year old female with PMH significant for dementia. Post operative day #5 from the following surgical procedure - subtotal colectomy with ileosigmoid anastomosis for gastrointestinal bleeding and reported volvulus. Doing overall well however continues to suffer from ileus for which NG tube decompression was necessary yesterday. Has minimal resumption of bowel function and remains distended. Plan going forward is as follows: 1. [Continue IV fluids], maintain n.p.o., maintain parenteral nutrition in this nutritionally depleted and malnourished patient for whom enteric feeds have essentially been held for over 1 week, GI prophylaxis, will continue bowel regimen and add methyl naltrexone. 2. Opiate sparing analgesia to include [Robaxin, Lyrica, acetaminophen]. 3. Parenteral nutrition given severe protein malnutrition. Contrast challenge with CT to evaluate anastomosis and status of ileus. Will obtain plain abdominal film as well as chest x-ray prior. 4. Replete electrolytes which we will follow daily; [parenteral nutrition]. 5. PT/OT out of bed with ambulation. 6. Contrast study to evalute for resolution of the patient's ileus.
[2019-10-08] MEDS: ENALAPRILAT 1.25 MG/ML VIAL IVP SCH ×2 (13:25→18:57)
[2019-10-08] MEDS ORDERED: IOVERSOL 320 50 ML VIAL ONE (14:15)
[2019-10-08] MEDS ORDERED: IOVERSOL 320 100 ML VIAL IVP ONE ×2 (14:15→17:45)
--- NOTE | 2019-10-08 15:09 | XRAY Report ---
PROCEDURE: Abdomen 1 View X-Ray INDICATIONS: sbo follow up TECHNIQUE: 1 view of the abdomen were acquired. COMPARISON: CT of abdomen and pelvis dated 10/02/2019. FINDINGS: Surgical changes and devices: NG tube tip is in the stomach lumen. Skin tesha are noted in lower ab domen/pelvis. Bowel: Moderately air distended small bowel and colon loops are noted. No gross pneumoperitoneum. Soft tissues: No masses; visualized solid organ contours appear normal in size. No suspicious abdom inal calcifications. Calcified fibroids are noted in lower pelvis. Bones: No suspicious bony abnormalities. IMPRESSION: 1. Finding is suggestive of ileus versus low to moderate grade distal small bowel obstruction. No tank ss peritoneal free air. 2. Postsurgical changes in lower abdomen. Reviewed by: Kike Dean MD on 10/08/2019 3:08 PM PDT Approved by: Kike Dean MD on 10/08/2019 3:08 PM PDT Station ID: [id number]
--- NOTE | 2019-10-08 15:10 | XRAY Report ---
PROCEDURE: Chest 1 View X-Ray INDICATIONS: cough, ngt TECHNIQUE: One view of the chest was acquired. COMPARISON: None FINDINGS: Surgical changes and devices: NG tube tip is below the left hemidiaphragm and is in the stomach lumen .. Lungs and pleura: No pleural effusions or pneumothorax. Mild pulmonary vascular congestion is seen. No focal infiltrate. Mild elevation of left hemidiaphragm is seen. Mediastinum: Mediastinal contours appear normal. Heart size is enlarged. Bones and chest wall: No suspicious bony lesions. Overlying soft tissues appear unremarkable. IMPRESSION: Cardiomegaly and mild congestion. No focal infiltrate. No gross pneumothorax. Mild elevation of left hemidiaphragm. Reviewed by: Kike Dean MD on 10/08/2019 3:09 PM PDT Approved by: Kike Dean MD on 10/08/2019 3:09 PM PDT Station ID: [id number]
--- NOTE | 2019-10-08 16:58 | CT Report ---
PROCEDURE: Abdomen/Pelvis W INDICATIONS: evalute for ileus, post operative CONTRAST: IV CONTRAST: Optiray 320 ml: 100 PO CONTRAST: Optiray 320 ml50 TECHNIQUE: After the administration of oral and intravenous contrast, 5 mm thick sections acquired from the diap hragms to the symphysis. 5 mm thick coronal and sagittal reformats were acquired. For radiation dos e reduction, the following was used: automated exposure control, adjustment of mA and/or kV accordin g to patient size. COMPARISON: 10/02/2019. FINDINGS: Image quality: Excellent. ABDOMEN: Lung bases: Small left pleural effusion and trace right pleural effusion is seen. Bibasilar scattered atelectasis is noted. Spiculated nodule in posterior medial right lower lobe is again seen and uncha nged. Heart size is enlarged. Solid organs: Liver and spleen are normal in size and enhancement. Gallbladder contains numerous st ones in its dependent portion. No gross gallbladder wall thickening or pericholecystic fluid. Biliar y system is non dilated. Pancreas enhances normally. No adrenal nodules. Kidneys demonstrate jaime l size and enhancement, without hydronephrosis. Peritoneum and bowel: Patient is status post interval abdominal surgery. Small amount of free fluid i s noted adjacent to the liver and spleen. Scattered tiny pockets of air are seen in nondependent port ion of peritoneal space most consistent with postsurgical changes. There is NG tube tip within the ga stric lumen. Contrast distended stomach, small bowel loops and fluid distended colon loops are seen. No discrete focal transition zone is identified in the small bowel loops. There is abrupt caliber leonidas nge seen in right lower pelvis involving mid sigmoid colon best seen on axial image #55, which could represent focal zone of transition. No significant sigmoid colon wall thickening is noted. No discret e sigmoid colon wall mass is seen. Nodes and vessels: No retroperitoneal or mesenteric adenopathy by size criteria. Aorta and inferior vena cava are normal in size. Miscellaneous: No ventral hernias. Anterior abdominal wall skin tesha and subcutaneous emphysema is seen consistent with postsurgical changes. PELVIS: Genitourinary: Bladder wall thickness is normal. Miscellaneous: No inguinal hernias or adenopathy. Bones: No suspicious bony lesions. No vertebral body compression fractures. IMPRESSION: 1. Interval abdominal surgery with postsurgical changes in anterior abdominal wall. Small amount of f ree fluid in upper abdomen. Tiny peritoneal free air most consistent with iatrogenic air. 2. Stomach and proximal small bowel loops are distended with contrast. Fluid distended mid to distal small bowel loops and colon loops are seen which may represent ileus. There is focal area of abrupt c aliber change involving mid sigmoid colon, focal obstruction at this level cannot be excluded. 3. Cholelithiasis, unchanged from prior study. No CT evidence of acute cholecystitis. 4. Cardiomegaly. Left greater than right bilateral pleural effusion and bibasilar dependent atelectas is. Reviewed by: Kike Dean MD on 10/08/2019 4:56 PM PDT Approved by: Kike Dean MD on 10/08/2019 4:56 PM PDT Station ID: [id number]
[2019-10-08] MEDS ORDERED: IOVERSOL 320 50 ML VIAL PO ONE (17:46)
[2019-10-08] MEDS: METOCLOPRAMIDE 10 MG/2 ML VIAL IVP SCH (18:57)
[2019-10-08] MEDS: ACETAMINOPHEN 1,000 MG/100 ML 100 ML IV SCH (18:57)
[2019-10-08] MEDS: FAT EMULSION 20% 250 ML IV SCH (19:23)
[2019-10-08] MEDS: [UNRECOGNIZED DRUG - OTHER] IV SCH ×5 (19:23)
[2019-10-08] MEDS: MULTIVITAMIN IV SCH ×5 (19:23)
[2019-10-08] MEDS: TRACE ELEMENTS V IV SCH ×5 (19:23)
[2019-10-08] MEDS: PPN IV SCH ×5 (19:23)
[2019-10-08] MEDS: PREGABALIN 100 MG CAPSULE PO SCH (22:11)
[2019-10-09] MEDS: METOCLOPRAMIDE 10 MG/2 ML VIAL IVP SCH ×4 (02:10→20:56)
[2019-10-09] MEDS: ACETAMINOPHEN 1,000 MG/100 ML 100 ML IV SCH ×4 (02:10→20:55)
[2019-10-09] MEDS: SODIUM CHLORIDE FLUSH 0.9% 10 ML SYRINGE IVP SCH ×3 (02:11→16:36)
[2019-10-09] MEDS: SODIUM CHLORIDE FLUSH 0.9% 10 ML SYRINGE IVP PRN ×2 (02:11→06:07)
[2019-10-09] MEDS: ENALAPRILAT 1.25 MG/ML VIAL IVP SCH ×4 (02:24→19:14)
[2019-10-09] MEDS: PANTOPRAZOLE 40 MG VIAL IVP SCH (06:07)
--- NOTE | 2019-10-09 07:41 | PROVIDER PROGRESS NOTE ---
Subjective - Prog Note Date Prog Note Date: 10/09/19 - Subjective Subjective: Reports abdominal pain is well controlled. Reports having a liquid bowel movement this morning. She believes she is passing gas. Reports no nausea or vomiting. Denies chest pain and dyspnea. Current Medications - Current Medications Current Medications: Active Medications Carboxymethylcellulose (Refresh 1% Ophth Drops) 1 drops EACHEYE PRN PRN PRN Reason: Dry Eye Last Admin: 10/03/19 05:41 Dose: 1 drops Documented by: Donepezil HCl (Aricept) 5 mg PO DAILY [facility] Last Admin: 10/09/19 08:56 Dose: 5 mg Documented by: Enalaprilat (Vasotec Inj) 1.25 mg IVP Q6HR TASHIA Last Admin: 10/09/19 13:10 Dose: 1.25 mg Documented by: Hydralazine HCl (Apresoline Inj) 10 mg IVP Q6H PRN PRN Reason: Hypertensive Emergency Hydromorphone HCl (Dilaudid Inj Syringe) 0.5 mg IVP Q2H PRN PRN Reason: PAIN Last Admin: 10/07/19 00:52 Dose: 0.5 mg Documented by: Multivitamins 10 ml/ Chromium/Copper/Manganese/Seleni/Zn 1 ml/ Sodium Chloride 30 meq/Potassium Chloride 20 meq/Amino Acids/Electrolytes/Dextrose 2,028.5 mls @ 83 mls/hr IV Q24H [facility]; Protocol Last Admin: 10/08/19 19:23 Dose: 83 mls/hr Documented by: Fat Emulsion Intravenous (Intralipid 20%) 250 mls @ 21 mls/hr IV Q24H [facility] Last Infusion: 10/09/19 07:55 Dose: Infused Documented by: Acetaminophen (Ofirmev) 100 mls @ 400 mls/hr IV Q6H [facility] Last Admin: 10/09/19 13:10 Dose: 400 mls/hr Documented by: Metoclopramide HCl (Reglan Inj) 10 mg IVP Q6H TASHIA Last Admin: 10/09/19 13:12 Dose: 10 mg Documented by: Morphine Sulfate (Morphine (Carpuject)) 2 mg IVP Q4HR PRN PRN Reason: PAIN Non-Formulary Medication (Non Formulary) 1 each SUBQ DAILY [facility] Last Admin: 10/09/19 09:02 Dose: Not Given Documented by: Ondansetron HCl (Zofran Inj) 4 mg IVP Q6HR PRN PRN Reason: Nausea / Vomiting Last Admin: 10/08/19 09:10 Dose: 4 mg Documented by: Pantoprazole Sodium (Protonix) 40 mg IVP QDAC [facility] Last Admin: 10/09/19 06:07 Dose: 40 mg Documented by: Polyethylene Glycol (Miralax) 17 gm PO DAILY [facility] Last Admin: 10/09/19 08:56 Dose: 17 gm Documented by: Pregabalin (Lyrica) 100 mg PO BID [facility] Last Admin: 10/09/19 08:57 Dose: 100 mg Documented by: Sodium Chloride (Normal Saline Flush 0.9%) 10 ml IVP PRN PRN PRN Reason: NEEDED PER PROVIDER ORDERS Last Admin: 10/09/19 06:07 Dose: 10 ml Documented by: Sodium Chloride (Normal Saline Flush 0.9%) 10 ml IVP 0100,0900,1700 [facility] Last Admin: 10/09/19 05:58 Dose: 10 ml Documented by: Amlodipine Besylate 5 mg PO DAILY 11/17/15 Aspirin EC [Ecotrin] 325 mg PO DAILY 10/02/19 Calcium Carbonate [Calcium] 600 mg PO DAILY 10/02/19 Donepezil [Aricept] 5 mg PO QPM 10/02/19 Lisinopril/Hydrochlorothiazide [Lisinopril-Hctz 20-12.5 mg Tab] 2 each PO DAILY 10/02/19 Oxybutynin [Ditropan] 5 mg PO QPM 10/02/19 Pravastatin [Pravachol] 40 mg PO DAILY 10/02/19 Objective - Vital Signs/Intake & Output Reviewed Vital Signs: Yes Vital Signs: Vital Signs x48h Pulse Resp BP 10/09/19 06:14 74 10/09/19 06:10 74 136/54 H 10/09/19 06:05 74 120/55 L 10/09/19 06:00 71 113/54 L 10/09/19 05:59 87 122/59 L 10/09/19 02:25 67 18 106/60 Intake & Output: Intake & Output 10/06/19 10/07/19 10/08/19 10/09/19 23:59 23:59 23:59 23:59 Intake Total 1482.5 2891.129 0099.483 220 Output Total 575 1975 1850 1200 Balance 907.5 -15.001 2010.977 -980 - Objective General Appearance: positive: No acute distress, Alert Eyes Bilateral: positive: Normal inspection ENT: positive: ENT inspection nml, Other (NG tube in place.) Neck: positive: Nml inspection Respiratory: positive: No respiratory distress. negative: Wheezes, Rales, Rhonchi Cardiovascular: positive: Regular rate & rhythm, No murmur. negative: Tachycardia, Bradycardia, Systolic murmur Abdomen: positive: Non-tender, Abnml bowel sounds (Hypoactive bowel sounds.), Other (Dressing in place over incision. No erythema noted.). negative: No distention (Mild distenion.), Tenderness, Guarding, Rebound Skin: positive: Warm, Dry Extremities: positive: No pedal edema Neurologic/Psychiatric: positive: Oriented x3. negative: Disoriented to person, Disoriented to place, Disoriented to time - Lab Results Fish Bones: 10/09/19 08:25 10/09/19 08:25 Other Labs: Lab Results x24hrs 10/08/19 10/08/19 10/08/19 Range/Units 17:57 11:46 05:43 POC Whole Bld Glucose 120 H 139 H 139 H (70 - 100) mg/dL 10/07/19 10/06/19 Range/Units 23:51 20:54 POC Whole Bld Glucose 127 H 129 H (70 - 100) mg/dL ABX Reporting Has patient been on IV antibiotics over the past 48 hours?: No Sepsis Event Note (H) - Evaluation Current Stage of Sepsis: Ruled out Assessment/Plan - Problem List (1) Ileus following gastrointestinal surgery Impression: Have a bowel movement this morning but she continues to have abdominal distention and hypoactive bowel sounds. G-tube remains in place with 600 mL drained today. Imaging yesterday was concerning for ileus although obstruction cannot be ruled out. At this time, we will keep the NG tube in place and continue PPN. Maintain n.p.o. status. Will await general surgery r ecommendations regarding repeating imaging. CContinue pain control with Dilaudid as needed. (2) Status post colectomy Impression: Status post subtotal colectomy with anastomosis and takedown of splenic flexure due to lower gastrointestinal bleed felt secondary to diverticulosis and sigmoing volvulus. Has been complicated by postoperative ileus. Plan as m entioned above. (3) Anemia due to GI blood loss Impression: Hemoglobin has remained stable postoperatively with no evidence of bleeding. Continue to monitor. SCDs and Lovenox for DVT prophylaxis. (4) Dementia Impression: Stable. She is currently alert and oriented x3. Continue her home medications. (5) Hx of essential hypertension Impression: Blood pressure has been stable on IV Vasotec and hydralazine as needed which will be continued. (6) Hypokalemia Impression: We will continue to replace intravenously and monitor on a daily basis. (7) Hyponatremia Impression: Improved to 131 today. She is chronically hyponatremic with sodiums in the low 130s likely due to thiazide use at home. Continue to monitor as she is receiving PPN. (8) Lung mass Impression: Imaging on admission was concerning for possible right lower lobe nodule which could be a neoplasm. She will need further work-up of this when she gets over this acute illness. (9) Lymphadenopathy, retroperitoneal Impression: Imaging on admission also revealed enlarged retroperitoneal lymph nodes suspicious for neoplasm. She will need a PET scan on outpatient basis.
[2019-10-09 08:32] LABS: BASOPHILS % (AUTO) 0.4 %; EOSINOPHILS # (AUTO) 0.2 10^3/uL (0.0-0.7); EOSINOPHILS % (AUTO) 1.5 %; HGB - HEMOGLOBIN 11.2 g/dL (12.0-16.0); LYMPHOCYTES # (AUTO) 0.8 10^3/uL (1.5-3.5); LYMPHOCYTES % (AUTO) 7.7 %; MEAN CORPUSCULAR HEMOGLOBIN 31.9 pg (27.0-31.0); MEAN CORPUSCULAR HGB CONC 34.7 g/dL (32.0-36.0); MEAN PLATELET VOLUME 10.5 fL (7.9-10.8); MONOCYTES # (AUTO) 0.7 10^3/uL (0.0-1.0); MONOCYTES % (AUTO) 7.3 %; NEUTROPHILS % (AUTO) 81.8 %; PLT - PLATELET COUNT 152 10^3/uL (130-450); RED BLOOD COUNT 3.51 10^6/uL (4.20-5.40); RED CELL DISTRIBUTION WIDTH 14.5 % (12.0-15.0); WHITE BLOOD COUNT 9.8 x10^3/uL (4.8-10.8)
[2019-10-09 08:44] LABS: CREATININE 0.6 mg/dL (0.4-1.0); MAGNESIUM 2.5 mg/dL (1.7-2.8); PHOSPHORUS 4.3 mg/dL (2.5-4.6)
[2019-10-09] MEDS: polyethylene glycoL 3350 17 GM PACKET PO SCH (08:56)
[2019-10-09] MEDS: DONEPEZIL 5 MG TABLET PO SCH (08:56)
[2019-10-09] MEDS: PREGABALIN 100 MG CAPSULE PO SCH ×2 (08:57→20:56)
[2019-10-09] MEDS ORDERED: NON FORMULARY MED SUBQ SCH (09:00)
--- NOTE | 2019-10-09 12:47 | XRAY Report ---
PROCEDURE: Chest for Line Placement INDICATIONS: ng tube placement TECHNIQUE: One view of the chest was acquired. COMPARISON: Chest x-ray, 10/08/2019 FINDINGS: Surgical changes and devices: There is a nasogastric tube with the tip projecting to the stomach.. Lungs and pleura: Left basilar opacity may be infiltrate or atelectasis. There is a small left pleur al effusion. Mildly increased pulmonary vascularity. No pneumothorax. Mediastinum: Mediastinal contours appear normal. Heart size is normal. Bones and chest wall: No suspicious bony lesions. Overlying soft tissues appear unremarkable. IMPRESSION: 1. The tip of the nasal gastric tube is in the stomach. 2. Small left pleural effusion and basilar infiltrate or atelectasis. Reviewed by: Geoffrey De Leon MD on 10/09/2019 12:45 PM PDT Approved by: Geoffrey De Leon MD on 10/09/2019 12:45 PM PDT Station ID: [id number]
--- NOTE | 2019-10-09 14:14 | PROVIDER PROGRESS NOTE ---
Subjective - General Admit Date: 10/03/19 Procedure Date: 10/03/19 Post Op Days: 6 Procedure Performed: Subtotal colectomy with ileo-sigmoid anastomosis - Review of Systems Wound/Incisions: positive: Dressing dry and intact Drain Type: None Drain Output Description: NA General: positive: Weakness, Malaise HEENT: positive: No symptoms Pulmonary: positive: No symptoms Cardiovascular: positive: No symptoms Gastrointestinal: positive: Abdominal pain, Other (NG tube placed by me two days ago for significant abdominal distention and episodic bilious emesis prior to my evaluation in the a.m. Output of near 1500 feculent output. Today even less distended with reports of additional flatus and liquid bowel movements.). negative: Nausea, Vomiting Psychiatric: positive: Confusion All Other Systems: positive: Reviewed and negative Objective - Patient Data Vital Signs: Vital Signs x48h Temp Pulse Resp BP Pulse Ox 10/09/19 13:18 67 122/59 L 10/09/19 13:17 72 122/54 L 10/09/19 13:10 72 124/58 L 10/09/19 12:56 38.0 C H 10/09/19 10:12 35.4 C L 68 24 110/66 95 Weight: Weight 10/07/19 10/08/19 10/09/19 23:59 23:59 23:59 Weight (kg) 69 kg 68.5 kg Intake & Output: Intake and Output Totals x24h 10/07/19 10/08/19 10/09/19 23:59 23:59 23:59 Intake Total 5862.146 3795.483 610 Output Total 1975 1850 1201 Balance -15.001 2010.483 -591 - Lab Results Lab Results: 10/09/19 08:25 10/09/19 08:25 Other Lab Results: Lab Results x24hrs 10/09/19 10/09/19 10/08/19 Range/Units 08:25 08:25 17:57 WBC 9.8 (4.8-10.8) x10^3/uL RBC 3.51 L (4.20-5.40) 10^6/uL Hgb 11.2 L (12.0-16.0) g/dL Hct 32.3 L (37.0-47.0) % MCV 92.0 (81.0-99.0) fL MCH 31.9 H (27.0-31.0) pg MCHC 34.7 (32.0-36.0) g/dL RDW 14.5 (12.0-15.0) % Plt Count 152 (130-450) 10^3/uL MPV 10.5 (7.9-10.8) fL Neut # (Auto) 8.0 H (1.5-6.6) 10^3/uL Lymph # (Auto) 0.8 L (1.5-3.5) 10^3/uL Gage # (Auto) 0.7 (0.0-1.0) 10^3/uL Eos # (Auto) 0.2 (0.0-0.7) 10^3/uL Baso # (Auto) 0.0 (0.0-0.1) 10^3/uL Absolute Nucleated RBC 0.00 x10^3/uL Nucleated RBC % 0.0 /100WBC Sodium 131 L (135-145) mmol/L Potassium 3.4 L (3.5-5.0) mmol/L Chloride 89 L (101-111) mmol/L Carbon Dioxide 31 (21-32) mmol/L Anion Gap 11.0 (6-13) BUN 24 H (6-20) mg/dL Creatinine 0.6 (0.4-1.0) mg/dL Estimated GFR (MDRD) 95 (>89) Glucose 115 H (70-100) mg/dL POC Whole Bld Glucose 120 H (70 - 100) mg/dL Calcium 9.0 (8.5-10.3) mg/dL Phosphorus 4.3 (2.5-4.6) mg/dL Magnesium 2.5 (1.7-2.8) mg/dL 10/08/19 Range/Units 11:46 WBC (4.8-10.8) x10^3/uL RBC (4.20-5.40) 10^6/uL Hgb (12.0-16.0) g/dL Hct (37.0-47.0) % MCV (81.0-99.0) fL MCH (27.0-31.0) pg MCHC (32.0-36.0) g/dL RDW (12.0-15.0) % Plt Count (130-450) 10^3/uL MPV (7.9-10.8) fL Neut # (Auto) (1.5-6.6) 10^3/uL Lymph # (Auto) (1.5-3.5) 10^3/uL Gage # (Auto) (0.0-1.0) 10^3/uL Eos # (Auto) (0.0-0.7) 10^3/uL Baso # (Auto) (0.0-0.1) 10^3/uL Absolute Nucleated RBC x10^3/uL Nucleated RBC % /100WBC Sodium (135-145) mmol/L Potassium (3.5-5.0) mmol/L Chloride (101-111) mmol/L Carbon Dioxide (21-32) mmol/L Anion Gap (6-13) BUN (6-20) mg/dL Creatinine (0.4-1.0) mg/dL Estimated GFR (MDRD) (>89) Glucose (70-100) mg/dL POC Whole Bld Glucose 139 H (70 - 100) mg/dL Calcium (8.5-10.3) mg/dL Phosphorus (2.5-4.6) mg/dL Magnesium (1.7-2.8) mg/dL - Current Medications Current Medications: Current Medications Generic Name Dose Route Start Last Admin Trade Name Freq PRN Reason Stop Dose Admin Carboxymethylcellulose 1 drops 10/02/19 23:28 10/03/19 05:41 Refresh 1% Ophth Drops EACHEYE 1 drops PRN PRN Administration Dry Eye Donepezil HCl 5 mg 10/03/19 10:30 10/09/19 08:56 Aricept PO 5 mg DAILY TASHIA Administration Enalaprilat 1.25 mg 10/08/19 12:00 10/09/19 13:10 Vasotec Inj IVP 1.25 mg Q6HR TASHIA Administration Hydromorphone HCl 0.5 mg 10/03/19 19:12 10/07/19 00:52 Dilaudid Inj Syringe IVP 0.5 mg Q2H PRN Administration PAIN Multivitamins 10 ml/ Chromium/ 2,028.5 mls @ 83 mls/hr 10/07/19 19:00 10/08/19 19:23 Copper/Manganese/Seleni/Zn 1 IV 83 mls/hr ml/ Sodium Chloride 30 meq/ Q24H TASHIA Administration Potassium Chloride 20 meq/ Amino Acids/Electrolytes/ Dextrose Protocol Fat Emulsion Intravenous 250 mls @ 21 mls/hr 10/07/19 19:00 10/09/19 07:55 Intralipid 20% IV Infused Q24H TASHIA Infusion Acetaminophen 100 mls @ 400 mls/hr 10/09/19 08:00 10/09/19 13:10 Ofirmev IV 400 mls/hr Q6H TASHIA Administration Metoclopramide HCl 10 mg 10/09/19 08:00 10/09/19 13:12 Reglan Inj IVP 10 mg Q6H TASHIA Administration Non-Formulary Medication 1 each 10/09/19 09:00 10/09/19 09:02 Non Formulary SUBQ Not Given DAILY TASHIA Ondansetron HCl 4 mg 10/02/19 11:05 10/08/19 09:10 Zofran Inj IVP 4 mg Q6HR PRN Administration Nausea / Vomiting Pantoprazole Sodium 40 mg 10/09/19 07:00 10/09/19 06:07 Protonix IVP 40 mg QDAC TASHIA Administration Polyethylene Glycol 17 gm 10/07/19 09:00 10/09/19 08:56 Miralax PO 17 gm DAILY TASHIA Administration Pregabalin 100 mg 10/08/19 21:00 10/09/19 08:57 Lyrica PO 100 mg BID TASHIA Administration Sodium Chloride 10 ml 10/02/19 11:05 10/09/19 06:07 Normal Saline Flush 0.9% IVP 10 ml PRN PRN Administration NEEDED PER PROVIDER ORDERS Sodium Chloride 10 ml 10/02/19 17:00 10/09/19 05:58 Normal Saline Flush 0.9% IVP 10 ml 0100,0900,1700 TASHIA Administration - Physical Exam Wound/Incisions: positive: Healing well, Dressing dry and intact General Appearance: positive: No acute distress Eyes Bilateral: positive: Normal inspection, PERRL, EOMI ENT: positive: Other (NG tube in place) Respiratory: positive: Chest non-tender, No respiratory distress Cardiovascular: positive: Regular rate & rhythm Rectal: positive: Other (Appropriately tender, wounds clean dry and intact with dressing in place, no rebound, no guarding, positive bowel sounds, less distended and less tympanitic.) Extremities: positive: Non-tender, Full ROM Neurologic/Psychiatric: positive: CN's nml (2-12), Disoriented to place, Disoriented to time ABX Reporting Has patient been on IV antibiotics over the past 48 hours?: No Impression/Plan - Problem List Problem List: 84 year old female with PMH significant for dementia. Post operative day #6 from the following surgical procedure - subtotal colectomy with ileosigmoid anastomosis for gastrointestinal bleeding and reported volvulus. Doing overall well however continues to suffer from ileus for which NG tube decompression has been necessary. Has minimal resumption of bowel function and remains distended. Concern for anastomotic stricture on imaging. Plan going forward is as follows: 1. Continue IV fluids, maintain n.p.o. with NG tube, GI prophylaxis, will continue bowel regimen with addition of methylnaltrexone - apparently Relistor is off formulary will discuss with pharmacy. Will attempt clamping trial later today and check for residual. 2. Opiate sparing analgesia to include Robaxin, Toradol, Lyrica, acetaminophen. 3. Replete electrolytes which we will follow daily; parenteral nutrition. 4. PT/OT out of bed with ambulation. 5. Repeat chest x-ray and abdominal x-ray today to assess for migration of contrast.
[2019-10-09] MEDS: POTASSIUM CHLOR 10 MEQ/100 ML 10 MEQ/100 ML BAG IV SCH ×2 (16:36→17:45)
[2019-10-09] MEDS: PPN IV SCH ×5 (19:13)
[2019-10-09] MEDS: TRACE ELEMENTS V IV SCH ×5 (19:13)
[2019-10-09] MEDS: [UNRECOGNIZED DRUG - OTHER] IV SCH ×5 (19:13)
[2019-10-09] MEDS: MULTIVITAMIN IV SCH ×5 (19:13)
[2019-10-09] MEDS: FAT EMULSION 20% 250 ML IV SCH (19:14)
[2019-10-10] MEDS: ENALAPRILAT 1.25 MG/ML VIAL IVP SCH ×2 (00:51→06:59)
[2019-10-10] MEDS: SODIUM CHLORIDE FLUSH 0.9% 10 ML SYRINGE IVP SCH ×4 (00:59→23:45)
[2019-10-10] MEDS: SODIUM CHLORIDE FLUSH 0.9% 10 ML SYRINGE IVP PRN ×4 (02:12→21:32)
[2019-10-10] MEDS: METOCLOPRAMIDE 10 MG/2 ML VIAL IVP SCH ×4 (02:12→21:32)
[2019-10-10] MEDS: ACETAMINOPHEN 1,000 MG/100 ML 100 ML IV SCH (02:13)
[2019-10-10 06:13] LABS: ALBUMIN 2.8 g/dL (3.2-5.5); ALBUMIN/GLOBULIN RATIO 1.2 (1.0-2.2); BILIRUBIN,TOTAL 0.4 mg/dL (0.2-1.0); CALCIUM 8.2 mg/dL (8.5-10.3); CREATININE 0.3 mg/dL (0.4-1.0); MAGNESIUM 2.2 mg/dL (1.7-2.8); PHOSPHORUS 3.9 mg/dL (2.5-4.6); TOTAL PROTEIN 5.2 g/dL (6.7-8.2)
[2019-10-10] MEDS: PANTOPRAZOLE 40 MG VIAL IVP SCH (07:05)
--- NOTE | 2019-10-10 09:10 | PROVIDER PROGRESS NOTE ---
Subjective - Prog Note Date Prog Note Date: 10/10/19 - Subjective Subjective: Reports feeling better today. States her abdominal pain is well controlled. No nausea or vomiting. Tolerating clear liquid diet. Had another bowel movement today. Current Medications - Current Medications Current Medications: Active Medications Acetaminophen (Tylenol) 500 mg PO Q6HR [facility] Last Admin: 10/10/19 13:01 Dose: Not Given Documented by: Amlodipine Besylate (Norvasc) 5 mg PO DAILY [facility] Last Admin: 10/10/19 10:02 Dose: 5 mg Documented by: Carboxymethylcellulose (Refresh 1% Ophth Drops) 1 drops EACHEYE PRN PRN PRN Reason: Dry Eye Last Admin: 10/03/19 05:41 Dose: 1 drops Documented by: Donepezil HCl (Aricept) 5 mg PO DAILY [facility] Last Admin: 10/10/19 10:02 Dose: 5 mg Documented by: Enoxaparin Sodium (Lovenox) 40 mg SUBQ DAILY [facility] Last Admin: 10/10/19 10:03 Dose: 40 mg Documented by: Hydralazine HCl (Apresoline Inj) 10 mg IVP Q6H PRN PRN Reason: Hypertensive Emergency Hydromorphone HCl (Dilaudid Inj Syringe) 0.5 mg IVP Q2H PRN PRN Reason: PAIN Last Admin: 10/07/19 00:52 Dose: 0.5 mg Documented by: Multivitamins 10 ml/ Chromium/Copper/Manganese/Seleni/Zn 1 ml/ Sodium Chloride 30 meq/Potassium Chloride 20 meq/Amino Acids/Electrolytes/Dextrose 2,028.5 mls @ 83 mls/hr IV Q24H [facility]; Protocol Last Admin: 10/09/19 19:13 Dose: 83 mls/hr Documented by: Fat Emulsion Intravenous (Intralipid 20%) 250 mls @ 21 mls/hr IV Q24H [facility] Last Infusion: 10/10/19 07:57 Dose: Infused Documented by: Lisinopril (Zestril) 40 mg PO DAILY [facility] Last Admin: 10/10/19 10:02 Dose: 40 mg Documented by: Metoclopramide HCl (Reglan Inj) 10 mg IVP Q6H [facility] Last Admin: 10/10/19 13:01 Dose: 10 mg Documented by: Morphine Sulfate (Morphine (Carpuject)) 2 mg IVP Q4HR PRN PRN Reason: PAIN Ondansetron HCl (Zofran Inj) 4 mg IVP Q6HR PRN PRN Reason: Nausea / Vomiting Last Admin: 10/08/19 09:10 Dose: 4 mg Documented by: Pantoprazole Sodium (Protonix) 40 mg PO QDAC [facility] Last Admin: 10/10/19 10:03 Dose: 40 mg Documented by: Sodium Chloride (Normal Saline Flush 0.9%) 10 ml IVP PRN PRN PRN Reason: NEEDED PER PROVIDER ORDERS Last Admin: 10/10/19 07:05 Dose: 10 ml Documented by: Sodium Chloride (Normal Saline Flush 0.9%) 10 ml IVP 0100,0900,1700 [facility] Last Admin: 10/10/19 16:41 Dose: 10 ml Documented by: Amlodipine Besylate 5 mg PO DAILY 11/17/15 Aspirin EC [Ecotrin] 325 mg PO DAILY 10/02/19 Calcium Carbonate [Calcium] 600 mg PO DAILY 10/02/19 Donepezil [Aricept] 5 mg PO QPM 10/02/19 Lisinopril/Hydrochlorothiazide [Lisinopril-Hctz 20-12.5 mg Tab] 2 each PO DAILY 10/02/19 Oxybutynin [Ditropan] 5 mg PO QPM 10/02/19 Pravastatin [Pravachol] 40 mg PO DAILY 10/02/19 Objective - Vital Signs/Intake & Output Reviewed Vital Signs: Yes Vital Signs: Vital Signs x48h Temp Pulse Resp BP Pulse Ox 10/10/19 07:16 69 150/67 H 10/10/19 07:12 72 153/85 H 10/10/19 07:07 87 117/71 10/10/19 06:59 90 141/82 H 10/10/19 05:25 36.8 C 58 L 20 144/75 H 95 10/10/19 01:51 65 123/53 L 10/10/19 01:36 68 118/54 L 10/10/19 01:21 68 142/60 H Intake & Output: Intake & Output 10/07/19 10/08/19 10/09/19 10/10/19 23:59 23:59 23:59 23:59 Intake Total 9960.058 8832.483 3038.167 350 Output Total 1974 2608 0455 700 Balance -15.001 2010.483 1737.167 -350 - Objective General Appearance: positive: No acute distress, Alert Eyes Bilateral: positive: Normal inspection ENT: positive: ENT inspection nml Neck: positive: Nml inspection Respiratory: positive: No respiratory distress. negative: Wheezes, Rales Cardiovascular: positive: Regular rate & rhythm, No murmur. negative: Tachycardia Abdomen: positive: Nml bowel sounds, Tenderness (Mild tenderness.), Other (Jayce ssing in place over incision site.). negative: Non-tender, Guarding, Rebound Skin: positive: Warm, Dry Extremities: positive: Full ROM, No pedal edema Neurologic/Psychiatric: positive: Oriented x3, Motor nml. negative: Disoriented to person, Disoriented to place, Disoriented to time - Lab Results Fish Bones: 10/09/19 08:25 10/10/19 05:24 Other Labs: Lab Results x24hrs 10/10/19 Range/Units 05:24 Sodium 127 L (135-145) mmol/L Potassium 3.5 (3.5-5.0) mmol/L Chloride 93 L (101-111) mmol/L Carbon Dioxide 27 (21-32) mmol/L Anion Gap 7.0 (6-13) BUN 21 H (6-20) mg/dL Creatinine 0.3 L (0.4-1.0) mg/dL Estimated GFR (MDRD) 211 (>89) Glucose 118 H (70-100) mg/dL Calcium 8.2 L (8.5-10.3) mg/dL Phosphorus 3.9 (2.5-4.6) mg/dL Magnesium 2.2 (1.7-2.8) mg/dL Total Bilirubin 0.4 (0.2-1.0) mg/dL AST 21 (10-42) IU/L ALT 22 (10-60) IU/L Alkaline Phosphatase 50 (42-121) IU/L Total Protein 5.2 L (6.7-8.2) g/dL Albumin 2.8 L (3.2-5.5) g/dL Globulin 2.4 (2.1-4.2) g/dL Albumin/Globulin Ratio 1.2 (1.0-2.2) Prealbumin 11 L (18-45) mg/dL Triglycerides 111 ( - 149) mg/dL Sepsis Event Note (H) - Evaluation Current Stage of Sepsis: Ruled out Assessment/Plan - Problem List (1) Ileus following gastrointestinal surgery Impression: Continues to clinically improve. Tolerating a liquid diet now continues have bowel movement. Pain is well controlled. Continue to advance diet as tolerated. Appreciate surgery recommendations. Continue with current pain management. (2) Status post colectomy Impression: Doing well postoperatively as postop ileus is improving. Outpatient follow-up with surgery on discharge. (3) Anemia due to GI blood loss Impression: Hemoglobin is remained stable without evidence of bleeding. Continue to monitor while hospitalized. (4) Dementia Impression: Stable and at baseline. Continue home medications. (5) Hx of essential hypertension Impression: Blood pressures well controlled on her home regimen. (6) Hypokalemia Impression: Her potassium is within normal limits today. We will continue to monitor. (7) Hyponatremia Impression: Slightly worse today. Likely due to PPN that she was receiving. This should improve as she increases her oral intake and we discontinue the PPN. Continue to monitor. (8) Lung mass Impression: Imaging on admission was concerning for a right lower lobe nodule which could be a neoplasm. She will need outpatient follow-up. (9) Lymphadenopathy, retroperitoneal Impression: Pathology revealed 2 tubular adenomas with 3 benign regional lymph nodes. She would benefit from a PET scan on outpatient basis if she would be interested in pursuing further work-up.
[2019-10-10] MEDS: amLODIPine 5 MG TABLET PO SCH (10:02)
[2019-10-10] MEDS: lisinopriL 20 MG TABLET PO SCH (10:02)
[2019-10-10] MEDS: DONEPEZIL 5 MG TABLET PO SCH (10:02)
[2019-10-10] MEDS: PANTOPRAZOLE 40 MG TABLET PO SCH (10:03)
[2019-10-10] MEDS: ENOXAPARIN 40 MG/0.4 ML SYRINGE SUBQ SCH (10:03)
[2019-10-10] MEDS: ACETAMINOPHEN 500 MG TABLET PO SCH ×3 (13:01→23:45)
--- NOTE | 2019-10-10 18:02 | PROVIDER PROGRESS NOTE ---
Subjective - Prog Note Date Prog Note Date: 10/10/19 - Subjective Pt reports feeling: Improved (n/v resovled. taking diet ok) Objective - Vital Signs/Intake & Output Vital Signs: Vital Signs x48h Temp Pulse Resp BP Pulse Ox 10/10/19 16:16 36.6 C 77 21 140/54 H 94 10/10/19 14:59 36.5 C 80 19 117/58 L 94 Intake & Output: Intake & Output 10/07/19 10/08/19 10/09/19 10/10/19 23:59 23:59 23:59 23:59 Intake Total 2885.537 6797.483 3038.167 570 Output Total 1974 1850 1301 1010 Balance -15.001 2011.483 1737.167 -440 - Objective General Appearance: positive: No acute distress, Alert Respiratory: positive: No respiratory distress Abdomen: positive: Non-tender, No distention, Other (no erythema) - Lab Results Fish Bones: 10/09/19 08:25 10/10/19 05:24 Other Labs: Lab Results x24hrs 10/10/19 10/09/19 Range/Units 05:24 23:56 Sodium 127 L (135-145) mmol/L Potassium 3.5 (3.5-5.0) mmol/L Chloride 93 L (101-111) mmol/L Carbon Dioxide 27 (21-32) mmol/L Anion Gap 7.0 (6-13) BUN 21 H (6-20) mg/dL Creatinine 0.3 L (0.4-1.0) mg/dL Estimated GFR (MDRD) 211 (>89) Glucose 118 H (70-100) mg/dL POC Whole Bld Glucose 114 H (70 - 100) mg/dL Calcium 8.2 L (8.5-10.3) mg/dL Phosphorus 3.9 (2.5-4.6) mg/dL Magnesium 2.2 (1.7-2.8) mg/dL Total Bilirubin 0.4 (0.2-1.0) mg/dL AST 21 (10-42) IU/L ALT 22 (10-60) IU/L Alkaline Phosphatase 50 (42-121) IU/L Total Protein 5.2 L (6.7-8.2) g/dL Albumin 2.8 L (3.2-5.5) g/dL Globulin 2.4 (2.1-4.2) g/dL Albumin/Globulin Ratio 1.2 (1.0-2.2) Prealbumin 11 L (18-45) mg/dL Triglycerides 111 ( - 149) mg/dL Sepsis Event Note (H) - Evaluation Current Stage of Sepsis: Ruled out Assessment/Plan - Problem List (1) Acute lower GI bleeding Impression: much improved. normal abdominal exam. home when po improved, likely tomorrow
[2019-10-10] MEDS: FAT EMULSION 20% 250 ML IV SCH (18:58)
[2019-10-10] MEDS: TRACE ELEMENTS V IV SCH ×5 (18:58)
[2019-10-10] MEDS: PPN IV SCH ×5 (18:58)
[2019-10-10] MEDS: [UNRECOGNIZED DRUG - OTHER] IV SCH ×5 (18:58)
[2019-10-10] MEDS: MULTIVITAMIN IV SCH ×5 (18:58)
[2019-10-11] MEDS: METOCLOPRAMIDE 10 MG/2 ML VIAL IVP SCH ×4 (03:12→20:32)
[2019-10-11] MEDS: ACETAMINOPHEN 500 MG TABLET PO SCH ×3 (05:49→18:31)
[2019-10-11] MEDS: PANTOPRAZOLE 40 MG TABLET PO SCH (05:49)
[2019-10-11 08:29] LABS: BASOPHILS % (AUTO) 0.4 %; EOSINOPHILS # (AUTO) 0.2 10^3/uL (0.0-0.7); EOSINOPHILS % (AUTO) 1.7 %; HGB - HEMOGLOBIN 10.6 g/dL (12.0-16.0); LYMPHOCYTES # (AUTO) 0.7 10^3/uL (1.5-3.5); LYMPHOCYTES % (AUTO) 7.3 %; MEAN CORPUSCULAR HEMOGLOBIN 30.8 pg (27.0-31.0); MEAN CORPUSCULAR HGB CONC 33.8 g/dL (32.0-36.0); MEAN CORPUSCULAR VOLUME 91.3 fL (81.0-99.0); MEAN PLATELET VOLUME 10.7 fL (7.9-10.8); MONOCYTES # (AUTO) 0.7 10^3/uL (0.0-1.0); MONOCYTES % (AUTO) 7.3 %; NEUTROPHILS # (AUTO) 8.1 10^3/uL (1.5-6.6); NEUTROPHILS % (AUTO) 82.4 %; PLT - PLATELET COUNT 201 10^3/uL (130-450); RED BLOOD COUNT 3.44 10^6/uL (4.20-5.40); RED CELL DISTRIBUTION WIDTH 14.6 % (12.0-15.0); WHITE BLOOD COUNT 9.8 x10^3/uL (4.8-10.8)
[2019-10-11 08:43] LABS: CALCIUM 8.5 mg/dL (8.5-10.3); CREATININE 0.4 mg/dL (0.4-1.0)
[2019-10-11] MEDS: amLODIPine 5 MG TABLET PO SCH (09:53)
[2019-10-11] MEDS: ENOXAPARIN 40 MG/0.4 ML SYRINGE SUBQ SCH (09:54)
[2019-10-11] MEDS: lisinopriL 20 MG TABLET PO SCH (09:54)
[2019-10-11] MEDS: DONEPEZIL 5 MG TABLET PO SCH (09:54)
[2019-10-11] MEDS: SODIUM CHLORIDE FLUSH 0.9% 10 ML SYRINGE IVP SCH ×2 (10:00→20:32)
[2019-10-11] MEDS: BENZOCAINE/MENTHOL LOZENGE MM PRN (13:02)
[2019-10-11] MEDS: SODIUM CHLORIDE FLUSH 0.9% 10 ML SYRINGE IVP PRN (13:02)
--- NOTE | 2019-10-11 14:47 | Discharge Plan ---
"Discharge Plan for SNF / [facility] - Discharge Plan And Transition Orders Problem Reviewed?: Yes Disposition: 06 Home Health Service Condition: Stable Allergies and Adverse Reactions: Allergies Allergy/AdvReac Type Severity Reaction Status Date / Time Sulfa (Sulfonamide AdvReac Unknown Verified 11/17/15 16:42 Antibiotics) Health Concerns: ileus following gastrointestinal surgery, and lung mass Plan of Treatment: pt passed gas and had bowel movement, she tolerated soft diet. pt had two days of NG tube. pt is prescribed Cepacol for her score throat. pt is arranged to have PT/OT and Aide as well. surgeon advise pt has no restrictions in diet or activities, may have shower and get the incision wet, may follow up with surgery as desired or needed. advise pt followup with PCP and referral to oncologist for evaluation of her right lower lobe nodule, and have PET scan on outpatient basis for her lymphadenopathy, retroperitoneal. Care Goals: stabilization and improvement of her medical conditions Assessment: discussed the care plan with pt, she understood. - SNF / [facility] Transition Orders Admit to (Facility): [facility] Under the care of (Name): Dr. Lashonda Rudolph Discharge Diagnosis: Ileus following gastrointestinal surgery, status post colectmy, anemia due to GI blood loss, mild dementia, HTN, hypokalemia, hyponatremia, lung mass, and lymphadenopathy, retroperitoneal. Medicare Certification Statement: I certify that [facility] Hospital [facility] care is medically necessary on a continuing basis for any of the conditions for which she/he is receiving care during hospitalization. Notify PCP of admission and forward orders to primary provider for signature. Weight on admission and: Daily Call PCP immediately if weight increases by: 2 kg Other Notification Orders: Call PCP immediately if patient develops dyspnea, chest pain/tightness or edema. House Bowel Program: Yes Additional Bowel Program Orders: If no BM after 2 days, nurse may give M.O.M. 30ml PO PRN and/or ducolax Supp 1 LA and/or OLAYINKA 250mg P.O., and/or senna 1-2 tabs PO. On day 3 nurse may give repeat above order until residents constipation is resolved. Annual Influenza Vaccine (between Dec 19 and July 18): Yes Two-step PPD per [facility] [id number] or approved exception documents: Yes Treatments & Other Orders: pt passed gas and had bowel movement, she tolerated soft diet. pt had two days of NG tube. pt is prescribed Cepacol for her score throat. pt is arranged to have PT/OT and Aide as well. surgeon advise pt has no restrictions in diet or activities, may have shower and get the incision wet, may follow up with surgery as desired or needed. pt may followup with palliative care. advise pt followup with PCP and referral to oncologist for evaluation of her right lower lobe nodule, and have PET scan on outpatient basis for her lymphadenopathy, retroperitoneal. Medication Orders: PLEASE REFER TO THE DISCHARGE MEDICATION LIST. Insulin Orders?: No - Medications New Prescriptions: Benzocaine/Menth/Cetyl [Cepacol] 1 lozenge MM Q3H PRN #20 lozenge PRN Reason: score throat Omeprazole 20 mg PO DAILY #15 capsule. Lisinopril [Zestril] 40 mg PO DAILY #15 tablet - Diet Type: Geriatric Texture: Mech soft Liquids: Thin May have monthly special meal: Yes - Therapies | Activity Therapy: Evaluation | Treat if indicated: PT, OT Rehabilitation Potential: Maximize functional status Activity: Activity as Tolerated"
--- NOTE | 2019-10-11 15:12 | PROVIDER PROGRESS NOTE ---
Subjective - Prog Note Date Prog Note Date: 10/11/19 - Subjective Pt reports feeling: Improved (tolerating diet. minimal to no discomfort. bowel movements ok. not having a problem with urgency) Objective - Vital Signs/Intake & Output Vital Signs: Vital Signs x48h Temp Pulse Resp BP Pulse Ox 10/11/19 08:10 36.3 C L 76 18 160/86 H 95 Intake & Output: Intake & Output 10/08/19 10/09/19 10/10/19 10/11/19 23:59 23:59 23:59 23:59 Intake Total 3861.483 3038.167 2761.25 970 Output Total 1850 1301 1010 900 Balance 483 9212.444 5863.25 70 - Objective General Appearance: positive: No acute distress, Alert Eyes Bilateral: positive: PERRL, EOMI Neck: positive: No JVD Respiratory: positive: No respiratory distress Abdomen: positive: Non-tender, No distention, Other (no erythema. tesha removed and steris applied) Extremities: positive: No pedal edema Neurologic/Psychiatric: positive: Oriented x3 - Lab Results Fish Bones: 10/11/19 08:21 10/11/19 08:21 Other Labs: Lab Results x24hrs 10/11/19 10/11/19 10/11/19 Range/Units 10:59 08:21 08:21 WBC 9.8 (4.8-10.8) x10^3/uL RBC 3.44 L (4.20-5.40) 10^6/uL Hgb 10.6 L (12.0-16.0) g/dL Hct 31.4 L (37.0-47.0) % MCV 91.3 (81.0-99.0) fL MCH 30.8 (27.0-31.0) pg MCHC 33.8 (32.0-36.0) g/dL RDW 14.6 (12.0-15.0) % Plt Count 201 (130-450) 10^3/uL MPV 10.7 (7.9-10.8) fL Neut # (Auto) 8.1 H (1.5-6.6) 10^3/uL Lymph # (Auto) 0.7 L (1.5-3.5) 10^3/uL [place] # (Auto) 0.7 (0.0-1.0) 10^3/uL Eos # (Auto) 0.2 (0.0-0.7) 10^3/uL Baso # (Auto) 0.0 (0.0-0.1) 10^3/uL Absolute Nucleated RBC 0.00 x10^3/uL Nucleated RBC % 0.0 /100WBC Sodium 128 L (135-145) mmol/L Potassium 3.6 (3.5-5.0) mmol/L Chloride 92 L (101-111) mmol/L Carbon Dioxide 26 (21-32) mmol/L Anion Gap 10.0 (6-13) BUN 15 (6-20) mg/dL Creatinine 0.4 (0.4-1.0) mg/dL Estimated GFR (MDRD) 151 (>89) Glucose 138 H (70-100) mg/dL POC Whole Bld Glucose 108 H (70 - 100) mg/dL Calcium 8.5 (8.5-10.3) mg/dL 10/11/19 10/10/19 10/10/19 Range/Units 07:27 20:23 16:58 WBC (4.8-10.8) x10^3/uL RBC (4.20-5.40) 10^6/uL Hgb (12.0-16.0) g/dL Hct (37.0-47.0) % MCV (81.0-99.0) fL MCH (27.0-31.0) pg MCHC (32.0-36.0) g/dL RDW (12.0-15.0) % Plt Count (130-450) 10^3/uL MPV (7.9-10.8) fL Neut # (Auto) (1.5-6.6) 10^3/uL Lymph # (Auto) (1.5-3.5) 10^3/uL [place] # (Auto) (0.0-1.0) 10^3/uL Eos # (Auto) (0.0-0.7) 10^3/uL Baso # (Auto) (0.0-0.1) 10^3/uL Absolute Nucleated RBC x10^3/uL Nucleated RBC % /100WBC Sodium (135-145) mmol/L Potassium (3.5-5.0) mmol/L Chloride (101-111) mmol/L Carbon Dioxide (21-32) mmol/L Anion Gap (6-13) BUN (6-20) mg/dL Creatinine (0.4-1.0) mg/dL Estimated GFR (MDRD) (>89) Glucose (70-100) mg/dL POC Whole Bld Glucose 120 H 108 H 109 H (70 - 100) mg/dL Calcium (8.5-10.3) mg/dL 10/10/19 10/10/19 10/09/19 Range/Units 12:17 06:15 23:56 WBC (4.8-10.8) x10^3/uL RBC (4.20-5.40) 10^6/uL Hgb (12.0-16.0) g/dL Hct (37.0-47.0) % MCV (81.0-99.0) fL MCH (27.0-31.0) pg MCHC (32.0-36.0) g/dL RDW (12.0-15.0) % Plt Count (130-450) 10^3/uL MPV (7.9-10.8) fL Neut # (Auto) (1.5-6.6) 10^3/uL Lymph # (Auto) (1.5-3.5) 10^3/uL [place] # (Auto) (0.0-1.0) 10^3/uL Eos # (Auto) (0.0-0.7) 10^3/uL Baso # (Auto) (0.0-0.1) 10^3/uL Absolute Nucleated RBC x10^3/uL Nucleated RBC % /100WBC Sodium (135-145) mmol/L Potassium (3.5-5.0) mmol/L Chloride (101-111) mmol/L Carbon Dioxide (21-32) mmol/L Anion Gap (6-13) BUN (6-20) mg/dL Creatinine (0.4-1.0) mg/dL Estimated GFR (MDRD) (>89) Glucose (70-100) mg/dL POC Whole Bld Glucose 110 H 106 H 114 H (70 - 100) mg/dL Calcium (8.5-10.3) mg/dL 10/09/19 10/09/19 10/09/19 Range/Units 18:13 11:54 05:35 WBC (4.8-10.8) x10^3/uL RBC (4.20-5.40) 10^6/uL Hgb (12.0-16.0) g/dL Hct (37.0-47.0) % MCV (81.0-99.0) fL MCH (27.0-31.0) pg MCHC (32.0-36.0) g/dL RDW (12.0-15.0) % Plt Count (130-450) 10^3/uL MPV (7.9-10.8) fL Neut # (Auto) (1.5-6.6) 10^3/uL Lymph # (Auto) (1.5-3.5) 10^3/uL [place] # (Auto) (0.0-1.0) 10^3/uL Eos # (Auto) (0.0-0.7) 10^3/uL Baso # (Auto) (0.0-0.1) 10^3/uL Absolute Nucleated RBC x10^3/uL Nucleated RBC % /100WBC Sodium (135-145) mmol/L Potassium (3.5-5.0) mmol/L Chloride (101-111) mmol/L Carbon Dioxide (21-32) mmol/L Anion Gap (6-13) BUN (6-20) mg/dL Creatinine (0.4-1.0) mg/dL Estimated GFR (MDRD) (>89) Glucose (70-100) mg/dL POC Whole Bld Glucose 99 116 H 117 H (70 - 100) mg/dL Calcium (8.5-10.3) mg/dL 10/08/19 10/07/19 Range/Units 23:37 07:39 WBC (4.8-10.8) x10^3/uL RBC (4.20-5.40) 10^6/uL Hgb (12.0-16.0) g/dL Hct (37.0-47.0) % MCV (81.0-99.0) fL MCH (27.0-31.0) pg MCHC (32.0-36.0) g/dL RDW (12.0-15.0) % Plt Count (130-450) 10^3/uL MPV (7.9-10.8) fL Neut # (Auto) (1.5-6.6) 10^3/uL Lymph # (Auto) (1.5-3.5) 10^3/uL [place] # (Auto) (0.0-1.0) 10^3/uL Eos # (Auto) (0.0-0.7) 10^3/uL Baso # (Auto) (0.0-0.1) 10^3/uL Absolute Nucleated RBC x10^3/uL Nucleated RBC % /100WBC Sodium (135-145) mmol/L Potassium (3.5-5.0) mmol/L Chloride (101-111) mmol/L Carbon Dioxide (21-32) mmol/L Anion Gap (6-13) BUN (6-20) mg/dL Creatinine (0.4-1.0) mg/dL Estimated GFR (MDRD) (>89) Glucose (70-100) mg/dL POC Whole Bld Glucose 121 H 135 H (70 - 100) mg/dL Calcium (8.5-10.3) mg/dL Sepsis Event Note (H) - Evaluation Current Stage of Sepsis: Ruled out Assessment/Plan - Problem List (1) Acute lower GI bleeding Impression: doing very well now. discharge planning. no restrictions in diet or activities. may shower and get the incision wet. follow up with surgery as desired or needed.
--- NOTE | 2019-10-11 15:30 | PROVIDER PROGRESS NOTE ---
Subjective - Prog Note Date Prog Note Date: 10/11/19 - Subjective Pt reports feeling: Improved Subjective: pt report she feel better. but report she has mild sore pain when she swallow but she report she can swallow food when she slowly do that. pt can tolerate soft solid diet. she denies abdominal pain, nausea or vomiting, fever, chill, chest pain, or shortness of breath. she report she passed gas and bowel movement. Unfortunately [facility] can not take pt on today, and they will take pt on tomorrow. Current Medications - Current Medications Current Medications: Active Medications Acetaminophen (Tylenol) 500 mg PO Q6HR [facility] Last Admin: 10/11/19 13:01 Dose: 500 mg Documented by: Amlodipine Besylate (Norvasc) 5 mg PO DAILY [facility] Last Admin: 10/11/19 09:53 Dose: 5 mg Documented by: Carboxymethylcellulose (Refresh 1% Ophth Drops) 1 drops EACHEYE PRN PRN PRN Reason: Dry Eye Last Admin: 10/03/19 05:41 Dose: 1 drops Documented by: Donepezil HCl (Aricept) 5 mg PO DAILY [facility] Last Admin: 10/11/19 09:54 Dose: 5 mg Documented by: Enoxaparin Sodium (Lovenox) 40 mg SUBQ DAILY [facility] Last Admin: 10/11/19 09:54 Dose: 40 mg Documented by: Hydralazine HCl (Apresoline Inj) 10 mg IVP Q6H PRN PRN Reason: Hypertensive Emergency Hydromorphone HCl (Dilaudid Inj Syringe) 0.5 mg IVP Q2H PRN PRN Reason: PAIN Last Admin: 10/07/19 00:52 Dose: 0.5 mg Documented by: Lisinopril (Zestril) 40 mg PO DAILY [facility] Last Admin: 10/11/19 09:54 Dose: 40 mg Documented by: Metoclopramide HCl (Reglan Inj) 10 mg IVP Q6H [facility] Last Admin: 10/11/19 13:02 Dose: 10 mg Documented by: Morphine Sulfate (Morphine (Carpuject)) 2 mg IVP Q4HR PRN PRN Reason: PAIN Ondansetron HCl (Zofran Inj) 4 mg IVP Q6HR PRN PRN Reason: Nausea / Vomiting Last Admin: 10/08/19 09:10 Dose: 4 mg Documented by: Pantoprazole Sodium (Protonix) 40 mg PO QDAC [facility] Last Admin: 10/11/19 05:49 Dose: 40 mg Documented by: Sodium Chloride (Normal Saline Flush 0.9%) 10 ml IVP PRN PRN PRN Reason: NEEDED PER PROVIDER ORDERS Last Admin: 10/11/19 13:02 Dose: 10 ml Documented by: Sodium Chloride (Normal Saline Flush 0.9%) 10 ml IVP 0100,0900,1700 [facility] Last Admin: 10/11/19 10:00 Dose: 10 ml Documented by: Throat Lozenges (Cepacol) 1 lozenge MM Q2HR PRN PRN Reason: Mouth Sore Pain Last Admin: 10/11/19 13:02 Dose: 1 lozenge Documented by: Amlodipine Besylate 5 mg PO DAILY 11/17/15 Aspirin EC [Ecotrin] 325 mg PO DAILY 10/02/19 Calcium Carbonate [Calcium] 600 mg PO DAILY 10/02/19 Donepezil [Aricept] 5 mg PO QPM 10/02/19 Oxybutynin [Ditropan] 5 mg PO QPM 10/02/19 Pravastatin [Pravachol] 40 mg PO DAILY 10/02/19 Objective - Vital Signs/Intake & Output Vital Signs: Vital Signs x48h Temp Pulse Resp BP Pulse Ox 10/11/19 08:10 36.3 C L 76 18 160/86 H 95 Intake & Output: Intake & Output 10/08/19 10/09/19 10/10/19 10/11/19 23:59 23:59 23:59 23:59 Intake Total 3861.483 3038.167 2761.25 970 Output Total 1850 1301 1010 900 Balance 2010.483 4150.725 0854.25 70 - Objective General Appearance: positive: No acute distress, Alert. negative: Lethargic Eyes Bilateral: positive: Normal inspection, PERRL, No lid inflammation ENT: positive: ENT inspection nml, No signs of dehydration. negative: Dry mucous membranes Neck: positive: Nml inspection, Thyroid nml, No JVD, Trachea midline. negative: Thyromegaly, Stiff neck, Tracheal deviation Respiratory: positive: Chest non-tender, No respiratory distress, Breath sounds nml. negative: Wheezes, Rales, Rhonchi Cardiovascular: positive: Regular rate & rhythm, No murmur, No gallop. negative: Irregularly irregular, Tachycardia, Bradycardia, Systolic murmur, Diastolic murmur Peripheral Pulses: 2+ Radial (R), 2+ Radial (L), 2+ Dorsalis pedis (R), 2+ Dorsalis pedis (L) Abdomen: positive: Non-tender, No organomegaly, Nml bowel sounds. negative: Tenderness, Guarding, Rebound Back: positive: Nml inspection. negative: CVA tenderness (R), CVA tenderness (L) Skin: positive: Color nml, No rash, Warm, Dry. negative: Cyanosis, Diaphoresis, Pallor Extremities: positive: Non-tender, Full ROM, Nml appearance, No pedal edema. negative: Calf tenderness, Cb's sign/cords Neurologic/Psychiatric: positive: Oriented x3, Motor nml, Sensation nml, Mood/affect nml. negative: Weakness, Sensory loss, Facial droop, Slurred/abnml speech - Lab Results Fish Bones: 10/11/19 08:21 10/11/19 08:21 Other Labs: Lab Results x24hrs 10/11/19 10/11/19 10/11/19 Range/Units 10:59 08:21 08:21 WBC 9.8 (4.8-10.8) x10^3/uL RBC 3.44 L (4.20-5.40) 10^6/uL Hgb 10.6 L (12.0-16.0) g/dL Hct 31.4 L (37.0-47.0) % MCV 91.3 (81.0-99.0) fL MCH 30.8 (27.0-31.0) pg MCHC 33.8 (32.0-36.0) g/dL RDW 14.6 (12.0-15.0) % Plt Count 201 (130-450) 10^3/uL MPV 10.7 (7.9-10.8) fL Neut # (Auto) 8.1 H (1.5-6.6) 10^3/uL Lymph # (Auto) 0.7 L (1.5-3.5) 10^3/uL [place] # (Auto) 0.7 (0.0-1.0) 10^3/uL Eos # (Auto) 0.2 (0.0-0.7) 10^3/uL Baso # (Auto) 0.0 (0.0-0.1) 10^3/uL Absolute Nucleated RBC 0.00 x10^3/uL Nucleated RBC % 0.0 /100WBC Sodium 128 L (135-145) mmol/L Potassium 3.6 (3.5-5.0) mmol/L Chloride 92 L (101-111) mmol/L Carbon Dioxide 26 (21-32) mmol/L Anion Gap 10.0 (6-13) BUN 15 (6-20) mg/dL Creatinine 0.4 (0.4-1.0) mg/dL Estimated GFR (MDRD) 151 (>89) Glucose 138 H (70-100) mg/dL POC Whole Bld Glucose 108 H (70 - 100) mg/dL Calcium 8.5 (8.5-10.3) mg/dL 10/11/19 10/10/19 10/10/19 Range/Units 07:27 20:23 16:58 WBC (4.8-10.8) x10^3/uL RBC (4.20-5.40) 10^6/uL Hgb (12.0-16.0) g/dL Hct (37.0-47.0) % MCV (81.0-99.0) fL MCH (27.0-31.0) pg MCHC (32.0-36.0) g/dL RDW (12.0-15.0) % Plt Count (130-450) 10^3/uL MPV (7.9-10.8) fL Neut # (Auto) (1.5-6.6) 10^3/uL Lymph # (Auto) (1.5-3.5) 10^3/uL [place] # (Auto) (0.0-1.0) 10^3/uL Eos # (Auto) (0.0-0.7) 10^3/uL Baso # (Auto) (0.0-0.1) 10^3/uL Absolute Nucleated RBC x10^3/uL Nucleated RBC % /100WBC Sodium (135-145) mmol/L Potassium (3.5-5.0) mmol/L Chloride (101-111) mmol/L Carbon Dioxide (21-32) mmol/L Anion Gap (6-13) BUN (6-20) mg/dL Creatinine (0.4-1.0) mg/dL Estimated GFR (MDRD) (>89) Glucose (70-100) mg/dL POC Whole Bld Glucose 120 H 108 H 109 H (70 - 100) mg/dL Calcium (8.5-10.3) mg/dL 10/10/19 10/10/19 10/09/19 Range/Units 12:17 06:15 23:56 WBC (4.8-10.8) x10^3/uL RBC (4.20-5.40) 10^6/uL Hgb (12.0-16.0) g/dL Hct (37.0-47.0) % MCV (81.0-99.0) fL MCH (27.0-31.0) pg MCHC (32.0-36.0) g/dL RDW (12.0-15.0) % Plt Count (130-450) 10^3/uL MPV (7.9-10.8) fL Neut # (Auto) (1.5-6.6) 10^3/uL Lymph # (Auto) (1.5-3.5) 10^3/uL [place] # (Auto) (0.0-1.0) 10^3/uL Eos # (Auto) (0.0-0.7) 10^3/uL Baso # (Auto) (0.0-0.1) 10^3/uL Absolute Nucleated RBC x10^3/uL Nucleated RBC % /100WBC Sodium (135-145) mmol/L Potassium (3.5-5.0) mmol/L Chloride (101-111) mmol/L Carbon Dioxide (21-32) mmol/L Anion Gap (6-13) BUN (6-20) mg/dL Creatinine (0.4-1.0) mg/dL Estimated GFR (MDRD) (>89) Glucose (70-100) mg/dL POC Whole Bld Glucose 110 H 106 H 114 H (70 - 100) mg/dL Calcium (8.5-10.3) mg/dL 10/09/19 10/09/19 10/09/19 Range/Units 18:13 11:54 05:35 WBC (4.8-10.8) x10^3/uL RBC (4.20-5.40) 10^6/uL Hgb (12.0-16.0) g/dL Hct (37.0-47.0) % MCV (81.0-99.0) fL MCH (27.0-31.0) pg MCHC (32.0-36.0) g/dL RDW (12.0-15.0) % Plt Count (130-450) 10^3/uL MPV (7.9-10.8) fL Neut # (Auto) (1.5-6.6) 10^3/uL Lymph # (Auto) (1.5-3.5) 10^3/uL [place] # (Auto) (0.0-1.0) 10^3/uL Eos # (Auto) (0.0-0.7) 10^3/uL Baso # (Auto) (0.0-0.1) 10^3/uL Absolute Nucleated RBC x10^3/uL Nucleated RBC % /100WBC Sodium (135-145) mmol/L Potassium (3.5-5.0) mmol/L Chloride (101-111) mmol/L Carbon Dioxide (21-32) mmol/L Anion Gap (6-13) BUN (6-20) mg/dL Creatinine (0.4-1.0) mg/dL Estimated GFR (MDRD) (>89) Glucose (70-100) mg/dL POC Whole Bld Glucose 99 116 H 117 H (70 - 100) mg/dL Calcium (8.5-10.3) mg/dL 10/08/19 10/07/19 Range/Units 23:37 07:39 WBC (4.8-10.8) x10^3/uL RBC (4.20-5.40) 10^6/uL Hgb (12.0-16.0) g/dL Hct (37.0-47.0) % MCV (81.0-99.0) fL MCH (27.0-31.0) pg MCHC (32.0-36.0) g/dL RDW (12.0-15.0) % Plt Count (130-450) 10^3/uL MPV (7.9-10.8) fL Neut # (Auto) (1.5-6.6) 10^3/uL Lymph # (Auto) (1.5-3.5) 10^3/uL [place] # (Auto) (0.0-1.0) 10^3/uL Eos # (Auto) (0.0-0.7) 10^3/uL Baso # (Auto) (0.0-0.1) 10^3/uL Absolute Nucleated RBC x10^3/uL Nucleated RBC % /100WBC Sodium (135-145) mmol/L Potassium (3.5-5.0) mmol/L Chloride (101-111) mmol/L Carbon Dioxide (21-32) mmol/L Anion Gap (6-13) BUN (6-20) mg/dL Creatinine (0.4-1.0) mg/dL Estimated GFR (MDRD) (>89) Glucose (70-100) mg/dL POC Whole Bld Glucose 121 H 135 H (70 - 100) mg/dL Calcium (8.5-10.3) mg/dL ABX Reporting Has patient been on IV antibiotics over the past 48 hours?: No Sepsis Event Note (H) - Evaluation Current Stage of Sepsis: Ruled out Assessment/Plan - Problem List (1) Ileus following gastrointestinal surgery Impression: (1) Ileus following gastrointestinal surgery Impression: pt tolerate soft solid diet, and Continues to clinically improve. d/c PPN on today. Pain is well controlled. Appreciate surgery recommendations, surgeon discharge pt on today. Continue with current pain management. encourage pt safely ambulation [facility] will take pt on tomorrow. (2) Status post colectomy Impression: continue improved. Outpatient follow-up with surgery on discharge. (3) Anemia due to GI blood loss Impression: Hemoglobin is stable without evidence of bleeding. Continue to monitor while hospitalized. (4) Dementia Impression: Stable and at baseline. (5) Hx of essential hypertension Impression: Blood pressures well controlled on her home regimen. (6) Hypokalemia Impression: resolved (7) Hyponatremia Impression: Slightly better today. pt has hx of slight hyponatremia, continue current diet and lab monitor (8) Lung mass Impression: Cat scan on admission was concerning for a right lower lobe nodule which could be a neoplasm. advise pt outpatient follow-up. (9) Lymphadenopathy, retroperitoneal Impression: Pathology revealed 2 tubular adenomas with 3 benign regional lymph nodes. advise pt followup with a PET scan on outpatient basis.
[2019-10-12] MEDS: ACETAMINOPHEN 500 MG TABLET PO SCH ×2 (00:09→06:05)
[2019-10-12] MEDS: SODIUM CHLORIDE FLUSH 0.9% 10 ML SYRINGE IVP SCH ×2 (00:09→07:46)
[2019-10-12] MEDS: METOCLOPRAMIDE 10 MG/2 ML VIAL IVP SCH ×2 (02:33→07:46)
[2019-10-12] MEDS: SODIUM CHLORIDE FLUSH 0.9% 10 ML SYRINGE IVP PRN (02:33)
[2019-10-12 05:41] LABS: BASOPHILS # (AUTO) 0.1 10^3/uL (0.0-0.1); BASOPHILS % (AUTO) 0.5 %; EOSINOPHILS # (AUTO) 0.1 10^3/uL (0.0-0.7); EOSINOPHILS % (AUTO) 1.5 %; HGB - HEMOGLOBIN 10.3 g/dL (12.0-16.0); LYMPHOCYTES # (AUTO) 0.8 10^3/uL (1.5-3.5); LYMPHOCYTES % (AUTO) 8.8 %; MEAN CORPUSCULAR HEMOGLOBIN 31.4 pg (27.0-31.0); MEAN CORPUSCULAR HGB CONC 34.1 g/dL (32.0-36.0); MEAN CORPUSCULAR VOLUME 92.1 fL (81.0-99.0); MEAN PLATELET VOLUME 11.1 fL (7.9-10.8); MONOCYTES # (AUTO) 0.8 10^3/uL (0.0-1.0); MONOCYTES % (AUTO) 8.3 %; NEUTROPHILS # (AUTO) 7.3 10^3/uL (1.5-6.6); NEUTROPHILS % (AUTO) 79.9 %; PLT - PLATELET COUNT 194 10^3/uL (130-450); RED BLOOD COUNT 3.28 10^6/uL (4.20-5.40); RED CELL DISTRIBUTION WIDTH 14.6 % (12.0-15.0); WHITE BLOOD COUNT 9.2 x10^3/uL (4.8-10.8)
[2019-10-12 06:05] LABS: CALCIUM 8.7 mg/dL (8.5-10.3); CREATININE 0.4 mg/dL (0.4-1.0)
[2019-10-12] MEDS: PANTOPRAZOLE 40 MG TABLET PO SCH (06:05)
[2019-10-12] MEDS ORDERED: POTASSIUM CHLORIDE 20 MEQ TABLET PO SCH (07:24)
[2019-10-12 07:42] VITALS: BP 149/74
[2019-10-12] MEDS: DONEPEZIL 5 MG TABLET PO SCH (07:45)
[2019-10-12] MEDS: lisinopriL 20 MG TABLET PO SCH (07:45)
[2019-10-12] MEDS: BENZOCAINE/MENTHOL LOZENGE MM PRN (07:46)
[2019-10-12] MEDS: amLODIPine 5 MG TABLET PO SCH (07:46)
[2019-10-12] MEDS: ENOXAPARIN 40 MG/0.4 ML SYRINGE SUBQ SCH (07:47)
--- NOTE | 2019-10-12 10:32 | DISCHARGE SUMMARY ---
"Discharge Summary Admit Date: 10/02/19 Discharge Date: 10/12/19 Discharging Provider: Eligio Fernandez Primary Care Provider: Lashonda Rudolph Condition at Discharge: Stable Discharge Disposition: Home Health Service Discharge Facility [facility]: [facility] - DIAGNOSES Admission Diagnoses: (1) Acute lower GI bleeding (2) Anemia due to GI blood loss (3) Lung mass (4) Lymphadenopathy, retroperitoneal (5) Hypokalemia (6) Hyponatremia (7) Hx of essential hypertension (8) Dementia Discharge Diagnoses with Status of Each Condition: (1) Ileus following gastrointestinal surgery resolved. pt tolerate soft solid diet with nausea or vomiting or abdominal pain. surgeon discharged pt. (2) Status post colectomy stable and surgery site is intact without drainage or swelling. pt denies pain. surgeon discharged pt. surgeon advise there is no restrictions in diet or activities. Pt may shower and get the incision wet. pt may follow up with surgery as desired or needed. (3) Anemia due to GI blood loss stable (4) Dementia stable (5) Hx of essential hypertension stable (6) Hypokalemia resolved (7) Hyponatremia improved. pt has hx of hyponatremia (8) Lung mass Cat scan on admission was concerning for a right lower lobe nodule which could be a neoplasm. advise pt outpatient follow-up. (9) Lymphadenopathy, retroperitoneal Pathology revealed 2 tubular adenomas with 3 benign regional lymph nodes. a dvise pt followup with a PET scan on outpatient basis if she would be interested in pursuing further work-up - HPI History of Present Illness: Received a 84 years old female with past medical history of hypertension, dimension with daily aspirin who lives alone in [facility] living [facility]. She present to the hospital report she had a morning nausea and bright blood bowel movement. Patient had a normal blood pressure and a normal hemoglobin, patient was Admitted in observation unit. - CONSULTS | PROCEDURES Consultations: Dr. Keith Procedures: subtotal colectomy with anastomosis and takedown of splenic flexure - HOSPITAL COURSE Hospital Course: Patient was admitted for GI bleeding with bright bloody stool. Patient had GI surgeon consult, patient had subtotal colectomy with anastomosis and takedown of splenic flexure. Unfortunately pt developed ileus after surgery, became nausea and developed mild to moderate extended abdomen. Plan patient had NG tube for decompression and PPN for nutrition, And physical therapy and Occupational Therapy with Evaluation and treatment for patient. After treatment, patient's NG tube was taken off, patient tolerated solid food, And PPN was DC'd. Patient had bowel movement as well. Patient tolerated regular solid food without nausea or vomiting. Surgeon discharge the patient. Patient blood pressure meds HCTZ is hold because patient has history of hyponatremia. Patient's lisinopril dosage increases to 40 mg daily. CAT scan the abdomen show right lower lobe nodule and multiple location lymphadenopathy in abdomen. Patient had palliative care consult. Patient was advised to follow-up with PCP and referral to oncologist if patient continue pursuing further management, and Advised patient follow-up with palliative care as well. - ALLERGIES Allergies/Adverse Reactions: Allergies Allergy/AdvReac Type Severity Reaction Status Date / Time Sulfa (Sulfonamide AdvReac Unknown Verified 11/17/15 16:42 Antibiotics) - MEDICATIONS Home Medications: Ambulatory Orders Medication Instructions Recorded Confirmed Amlodipine Besylate 5 mg PO DAILY 11/17/15 10/02/19 Aspirin EC [Ecotrin] 325 mg PO DAILY 10/02/19 10/02/19 Calcium Carbonate [Calcium] 600 mg PO DAILY 10/02/19 10/02/19 Donepezil [Aricept] 5 mg PO QPM 10/02/19 10/02/19 Oxybutynin [Ditropan] 5 mg PO QPM 10/02/19 10/02/19 Pravastatin [Pravachol] 40 mg PO DAILY 10/02/19 10/02/19 Benzocaine/Menth/Cetyl [Cepacol] 1 lozenge MM Q3H PRN #20 lozenge 10/11/19 Lisinopril [Zestril] 40 mg PO DAILY #15 tablet 10/11/19 Omeprazole 20 mg PO DAILY #15 capsule. 10/11/19 - PHYSICAL EXAM AT DISCHARGE General Appearance: positive: No acute distress, Alert. negative: Lethargic Eyes Bilateral: positive: Normal inspection, PERRL, No lid inflammation ENT: positive: ENT inspection nml, Pharynx nml, No signs of dehydration. negative: Purulent nasal drainage Neck: positive: Nml inspection, Thyroid nml, No JVD, Trachea midline. negative: Thyromegaly, Stiff neck, Tracheal deviation Respiratory: positive: Chest non-tender, No respiratory distress, Breath sounds nml. negative: Wheezes, Rales, Rhonchi Cardiovascular: positive: Regular rate & rhythm, No murmur. negative: Irregularly irregular, Tachycardia, Bradycardia, Systolic murmur, Diastolic murmur Peripheral Pulses: positive: 2+ Abdomen: positive: Non-tender, No organomegaly, Nml bowel sounds. negative: Tenderness, Guarding, Rebound Back: positive: Nml inspection. negative: CVA tenderness (R), CVA tenderness (L) Skin: positive: Color nml, No rash, Warm, Dry. negative: Cyanosis, Diaphoresis, Pallor Extremities: positive: Non-tender, Full ROM, Nml appearance. negative: Calf tenderness, Cb's sign/cords Neurologic/Psychiatric: positive: Oriented x3, Motor nml, Sensation nml. negative: Weakness, Sensory loss, Facial droop, Slurred/abnml speech, Depressed mood/affect - LABS Result Diagrams: 10/12/19 05:15 10/12/19 05:15 - SEPSIS Current Stage of Sepsis: Ruled out - FOLLOW UP Follow Up: pt passed gas and had bowel movement, she tolerated soft diet. pt had two days of NG tube. pt is prescribed Cepacol for her score throat. pt is arranged to have PT/OT and Aide as well. surgeon advise pt has no restrictions in diet or activities, may have shower and get the incision wet, may follow up with surgery as desired or needed. pt may followup with palliative care. advise pt followup with PCP and referral to oncologist for evaluation of her right lower lobe nodule, and have PET scan on outpatient basis for her lymphadenopathy, retroperitoneal. - TIME SPENT Time Spent in Discharge (Minutes): 30"
== END 2019-10-12 11:30 | disposition home health service (06) | DRG 329 ==
LOC: EDUNIT# → EDBD → ED 06:19 → MS2 09:25 → OBSVTOIN 10-03 11:35
PROVIDERS: ADMIT Internal Medicine; ATTEND Nurse Practitioner Gerontology
PROC: 0DTG0ZZ Resection of Left Large Intestine, Open Approach (ICD-10-PCS; principal; 2019-10-03 15:30)
PROC: 3E0336Z Introduction of Nutritional Substance into Peripheral Vein, Percutaneous Approach (ICD-10-PCS; 2019-10-07)
DX: K57.31 Diverticulosis of large intestine without perforation or abscess with bleeding (principal); K56.2 Volvulus; E43 Unspecified severe protein-calorie malnutrition; K91.30 Postprocedural intestinal obstruction, unspecified as to partial versus complete; D62 Acute posthemorrhagic anemia; E87.1 Hypo-osmolality and hyponatremia; E87.6 Hypokalemia; R91.1 Solitary pulmonary nodule; R59.0 Localized enlarged lymph nodes; Y83.6 Removal of other organ (partial) (total) as the cause of abnormal reaction of the patient, or of later complication, without mention of misadventure at the time of the procedure; Y92.234 Operating room of hospital as the place of occurrence of the external cause; Z68.21 Body mass index [BMI] 21.0-21.9, adult; R07.0 Pain in throat; F03.90 Unspecified dementia, unspecified severity, without behavioral disturbance, psychotic disturbance, mood disturbance, and anxiety; I10 Essential (primary) hypertension; I25.10 Atherosclerotic heart disease of native coronary artery without angina pectoris; E78.00 Pure hypercholesterolemia, unspecified; H54.7 Unspecified visual loss; H91.90 Unspecified hearing loss, unspecified ear; Z66 Do not resuscitate; Z51.5 Encounter for palliative care; Z11.59 Encounter for screening for other viral diseases; Z79.82 Long term (current) use of aspirin; Z79.899 Other long term (current) drug therapy; Z91.81 History of falling
CPT/HCPCS: 36415; 71045; 74018; 74177; 80048; 80053; 81001; 82272; 83605; 83690; 83735; 84100; 84132; 84134; 84478; 85014; 85018; 85025; 85610; 85730; 86850; 86900; 86901; 86920; 87635; 93306; 96361; 96374; 97116; 97161; 97166; 97530; 99221; 99222; 99284; 99285; A9270; J0131; J1170; J1650; J2765; J3490; J7120; P9016; Q9967; 81003; 81599; 87086

== ENCOUNTER 2019-10-14 10:46 | Emergency (ER) | payer OTHER ==
--- NOTE | 2019-10-14 11:09 | ED Physician Documentation ---
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 She is back at assisted living and presents with odd-looking stools. She says they are yellow and loose. She denies pain but the paperwork that accompanies her suggests that she has had increased confusion and abdominal tenderness which she denies either of. PD PAST MEDICAL HISTORY - Past Medical History Cardiovascular: Hypertension, High cholesterol, Coronary artery disease Respiratory: None Neuro: Other Endocrine/Autoimmune: None GI: GI bleed, Colon polyps, Diverticulitis : None HEENT: Chronic vision loss Psych: None Musculoskeletal: Osteoporosis Derm: None - Past Surgical History Past Surgical History: Yes General: Appendectomy Ortho: Arthroscopic surgery HEENT: Tonsil/Adenoidectomy - Present Medications Home Medications: Ambulatory Orders Medication Instructions Recorded Confirmed Amlodipine Besylate 5 mg PO DAILY 11/17/15 10/02/19 Aspirin EC [Ecotrin] 325 mg PO DAILY 10/02/19 10/02/19 Calcium Carbonate [Calcium] 600 mg PO DAILY 10/02/19 10/02/19 Donepezil [Aricept] 5 mg PO QPM 10/02/19 10/02/19 Oxybutynin [Ditropan] 5 mg PO QPM 10/02/19 10/02/19 Pravastatin [Pravachol] 40 mg PO DAILY 10/02/19 10/02/19 Benzocaine/Menth/Cetyl [Cepacol] 1 lozenge MM Q3H PRN #20 lozenge 10/11/19 Lisinopril [Zestril] 40 mg PO DAILY #15 tablet 10/11/19 Omeprazole 20 mg PO DAILY #15 capsule. 10/11/19 - Allergies Allergies/Adverse Reactions: Allergies Allergy/AdvReac Type Severity Reaction Status Date / Time Sulfa (Sulfonamide AdvReac Unknown Verified 11/17/15 16:42 Antibiotics) - Social History Does the pt smoke?: No Smoking Status: Never smoker Does the pt drink ETOH?: No Does the pt have substance abuse?: No - Immunizations Immunizations are current?: Yes - POLST Patient has POLST: Yes Results - Vitals Vitals: Vital Signs - 24 hr 10/14/19 10/14/19 11:01 12:45 Temperature 36.2 C L Heart Rate 87 77 Respiratory 16 17 Rate Blood Pressure 147/71 H 142/80 H O2 Saturation 95 96 Oxygen O2 Source Room air - Labs Labs: Laboratory Tests 10/14/19 10/14/19 10/14/19 11:16 11:16 12:37 WBC 10.7 RBC 3.74 L Hgb 11.4 L Hct 34.8 L MCV 93.0 MCH 30.5 MCHC 32.8 RDW 14.9 Plt Count 237 MPV 10.6 Neut # (Auto) 9.1 H Lymph # (Auto) 0.8 L [place] # (Auto) 0.6 Eos # (Auto) 0.0 Baso # (Auto) 0.0 Absolute Nucleated RBC 0.00 Nucleated RBC % 0.0 Sodium 136 Potassium 3.5 Chloride 99 L Carbon Dioxide 25 Anion Gap 12.0 BUN 21 H Creatinine 0.8 Estimated GFR (MDRD) 68 L Glucose 108 H Calcium 9.3 Total Bilirubin 0.8 AST 22 ALT 22 Alkaline Phosphatase 59 Total Protein 6.5 L Albumin 3.5 Globulin 3.0 Albumin/Globulin Ratio 1.2 Lipase 33 Urine Color YELLOW Urine Clarity HAZY Urine pH 5.5 Ur Specific [place] >=1.030 H Urine Protein NEGATIVE Urine Glucose (UA) NEGATIVE Urine Ketones NEGATIVE Urine Occult Blood NEGATIVE Urine Nitrite NEGATIVE Urine Bilirubin NEGATIVE Urine Urobilinogen 0.2 (NORMAL) Ur Leukocyte Esterase NEGATIVE Ur Microscopic Review INDICATED Urine Culture Comments Not Reportable PD MEDICAL DECISION MAKING - ED course ED course: This is a ar 84-year-old woman who was referred to the emergency department for odd-looking stools and concern for confusion and/or abdominal tenderness. She does seem very mildly demented here, has a benign abdominal examination, unremarkable labs. On repeat examination at 1:05 PM just prior to discharge she remained nontender and without complaints. No bowel movements while in the department. Departure - Departure Disposition: 01 Home, Self Care Clinical Impression: Diarrhea Qualifiers: Diarrhea type: functional diarrhea Qualified Code(s): K59.1 - Functional diarrhea Abdominal pain Qualifiers: Abdominal location: generalized Qualified Code(s): R10.84 - Generalized abdominal pain Condition: Good Record reviewed to determine appropriate education?: Yes Instructions: ED Abdominal Pain Unkn Cause Comments: You were seen here today for loose and odd-looking stools after your surgery. Labs were basically unremarkable. Please return anytime for new or worsening symptoms and follow-up as recommended by the hospital when you left at the last visit.
[2019-10-14 11:27] LABS: BASOPHILS % (AUTO) 0.4 %; EOSINOPHILS % (AUTO) 0.4 %; HGB - HEMOGLOBIN 11.4 g/dL (12.0-16.0); LYMPHOCYTES # (AUTO) 0.8 10^3/uL (1.5-3.5); LYMPHOCYTES % (AUTO) 7.6 %; MEAN CORPUSCULAR HEMOGLOBIN 30.5 pg (27.0-31.0); MEAN CORPUSCULAR HGB CONC 32.8 g/dL (32.0-36.0); MEAN PLATELET VOLUME 10.6 fL (7.9-10.8); MONOCYTES # (AUTO) 0.6 10^3/uL (0.0-1.0); MONOCYTES % (AUTO) 5.9 %; NEUTROPHILS # (AUTO) 9.1 10^3/uL (1.5-6.6); PLT - PLATELET COUNT 237 10^3/uL (130-450); RED BLOOD COUNT 3.74 10^6/uL (4.20-5.40); RED CELL DISTRIBUTION WIDTH 14.9 % (12.0-15.0); WHITE BLOOD COUNT 10.7 x10^3/uL (4.8-10.8)
[2019-10-14 11:44] LABS: ALBUMIN 3.5 g/dL (3.2-5.5); ALBUMIN/GLOBULIN RATIO 1.2 (1.0-2.2); BILIRUBIN,TOTAL 0.8 mg/dL (0.2-1.0); CALCIUM 9.3 mg/dL (8.5-10.3); CREATININE 0.8 mg/dL (0.4-1.0); TOTAL PROTEIN 6.5 g/dL (6.7-8.2)
[2019-10-14 12:54] LABS: BILIRUBIN,URINE NEGATIVE (NEGATIVE); GLUCOSE, URINE (UA) NEGATIVE (NEGATIVE); KETONES,URINE (UA) NEGATIVE (NEGATIVE); LEUKOCYTE ESTERASE, URINE NEGATIVE (NEGATIVE); NITRITE,URINE NEGATIVE (NEGATIVE); OCCULT BLOOD,URINE NEGATIVE (NEGATIVE); PH,URINE 5.5 PH (5.0-7.5); PROTEIN,URINE NEGATIVE (NEGATIVE); UROBILINOGEN,URINE 0.2 (NORMAL) E.U./dL (NORMAL)
[2019-10-14 12:55] LABS: CLARITY,URINE HAZY (CLEAR)
[2019-10-14 13:14] VITALS: BP 129/73
[2019-10-14 13:18] LABS: AMORPHOUS SEDIMENT,UR Few /LPF; BACTERIA,URINE Many /HPF (None Seen); MUCUS,URINE Marked Strands; RBC,URINE 0-5 /HPF (0-5); SQUAMOUS EPITHELIAL CELL,UR MOD Squamous (<= Few)
== END 2019-10-14 14:11 | disposition home or self-care (01) ==
LOC: ED 10:46
DX: K59.1 Functional diarrhea (principal); R10.84 Generalized abdominal pain; Z87.19 Personal history of other diseases of the digestive system; Z90.49 Acquired absence of other specified parts of digestive tract; I10 Essential (primary) hypertension; F03.90 Unspecified dementia, unspecified severity, without behavioral disturbance, psychotic disturbance, mood disturbance, and anxiety
CPT/HCPCS: 36415; 80053; 81001; 81003; 83690; 85025; 87086; 99281; 99283

== ENCOUNTER 2019-11-09 17:57 | Outpatient (CLI) | payer BC, OTHER ==
--- NOTE | 2019-11-09 19:05 | Ultrasound Report ---
PROCEDURE: Duplex Ext Veins Left INDICATIONS: THROMBOPHLEBITIS OF LEG TECHNIQUE: Real-time imaging, as well as color and pulse Doppler interrogation, were performed of the lower extr emity deep veins from the inguinal ligament to the popliteal fossa. COMPARISON: None. FINDINGS: The deep veins are normally compressible, and free of intraluminal thrombus. Color and pu lse Doppler demonstrate normal phasic intraluminal flow. There is normal augmentation response to di stal compression maneuver. Left posterior tibial veins and peroneal veins are free of thrombus. There is a superficial venous thrombus in the greater saphenous vein in the calf and distal left lowe r extremity. No thrombus in the upper greater saphenous vein or saphenofemoral junction. IMPRESSION: 1. No left lower extremity DVT. 2. Occlusive superficial venous thrombus in the greater saphenous vein in the thigh and calf. Results were called to Lashonda Rudolph by the wide area network engineer at 6:50 PM. Reviewed by: Scotty Das MD on 11/09/2019 7:03 PM PDT Approved by: Scotty Das MD on 11/09/2019 7:03 PM PDT Station ID: [id number]
== END 2019-11-09 17:58 | disposition home or self-care (01) ==
LOC: DI 17:57
PROVIDERS: ATTEND Physician Assistant Medical
DX: I82.812 Embolism and thrombosis of superficial veins of left lower extremity (principal)

== ENCOUNTER 2020-10-11 08:00 | Outpatient (CLI) | payer BC ==
[2020-10-11 17:57] LABS: BASOPHILS % (AUTO) 0.4 %; EOSINOPHILS % (AUTO) 0.3 %; HCT - HEMATOCRIT 42.9 % (37.0-47.0); HGB - HEMOGLOBIN 13.6 g/dL (12.0-16.0); LYMPHOCYTES # (AUTO) 0.9 10^3/uL (1.5-3.5); LYMPHOCYTES % (AUTO) 12.9 %; MEAN CORPUSCULAR HEMOGLOBIN 29.4 pg (27.0-31.0); MEAN CORPUSCULAR HGB CONC 31.7 g/dL (32.0-36.0); MEAN CORPUSCULAR VOLUME 92.9 fL (81.0-99.0); MEAN PLATELET VOLUME 12.8 fL (7.9-10.8); MONOCYTES # (AUTO) 0.4 10^3/uL (0.0-1.0); MONOCYTES % (AUTO) 5.3 %; NEUTROPHILS # (AUTO) 5.8 10^3/uL (1.5-6.6); PLT - PLATELET COUNT 217 10^3/uL (130-450); RED BLOOD COUNT 4.62 10^6/uL (4.20-5.40); RED CELL DISTRIBUTION WIDTH 15.5 % (12.0-15.0); WHITE BLOOD COUNT 7.2 x10^3/uL (4.8-10.8)
[2020-10-11 18:27] LABS: ALBUMIN 4.8 g/dL (3.2-5.5); ALBUMIN/GLOBULIN RATIO 1.4 (1.0-2.2); ALKALINE PHOSPHATASE 74 IU/L (42-121); ALT ALANINE AMINOTRANSFERASE 13 IU/L (10-60); AST ASPARTATE AMINOTRANSFERASE 20 IU/L (10-42); BILIRUBIN,TOTAL 1.1 mg/dL (0.2-1.0); BUN - BLOOD UREA NITROGEN 17 mg/dL (6-20); CALCIUM 10.6 mg/dL (8.5-10.3); CARBON DIOXIDE - CO2 31 mmol/L (21-32); CHLORIDE 101 mmol/L (101-111); CHOL/HDL RATIO 2.7 (<4.4); CHOLESTEROL 181 mg/dL; CREATININE 0.6 mg/dL (0.4-1.0); GFR - MDRD 95 (>89); GLUCOSE 98 mg/dL (70-100); HDL CHOLESTEROL 67 mg/dL; LDL CHOLESTEROL,CALCULATED 98 mg/dL; LDL/HDL RATIO 1.5 (<4.4); POTASSIUM 3.7 mmol/L (3.5-5.0); SODIUM 141 mmol/L (135-145); TOTAL PROTEIN 8.2 g/dL (6.7-8.2); TRIGLYCERIDES 80 mg/dL; VLDL CHOLESTEROL 16 mg/dL
[2020-10-11 18:32] LABS: THYROID STIMULATING HORMONE 2.75 uIU/mL (0.34-5.60)
== END 2020-10-11 23:59 | disposition home or self-care (01) ==
LOC: LAB.WCP 08:00
PROVIDERS: ATTEND Physician Assistant Medical
DX: E78.5 Hyperlipidemia, unspecified (principal); E03.9 Hypothyroidism, unspecified; K92.2 Gastrointestinal hemorrhage, unspecified
CPT/HCPCS: 36415; 80053; 80061; 83721; 84443; 85025

== ENCOUNTER 2020-10-20 19:08 | Emergency (ER) | payer BC ==
[2020-10-20] MEDS ORDERED: OXYMETAZOLINE HCL 100 SPRAYS BOTTLE NAS STA (19:34)
[2020-10-20] MEDS ORDERED: TRANEXAMIC ACID 1,000 MG/10 ML VIAL NAS STA (19:48)
[2020-10-20] MEDS ORDERED: BACITRACIN ZINC OINT 1 PACKET TOP STA (19:48)
--- NOTE | 2020-10-20 20:06 | ED Physician Documentation ---
History of Present Illness - Stated complaint Stated Complaint: NOSE BLEED - Chief complaint Chief Complaint: Heent - Additonal information Additional information: 85-year-old female presents to the emergency department for evaluation of acute right nares epistaxis. She thinks that she may have been picking her nose. She is not anticoagulated but does take a daily aspirin. She is at an assisted living memory care center and does have a history of dementia. She is otherwise well-appearing with no complaints of chest pain or shortness of air. Review of Systems Constitutional: denies: Fever, Chills Eyes: reports: Loss of vision Ears: reports: Reviewed and negative Nose: reports: Epistaxis Throat: reports: Reviewed and negative Cardiac: reports: Reviewed and negative Respiratory: reports: Reviewed and negative GI: reports: Reviewed and negative : reports: Reviewed and negative Skin: reports: Reviewed and negative Musculoskeletal: reports: Reviewed and negative Neurologic: reports: Reviewed and negative Psychiatric: reports: Reviewed and negative PD PAST MEDICAL HISTORY - Past Medical History Past Medical History: Yes Cardiovascular: Hypertension, High cholesterol, Coronary artery disease Respiratory: None Neuro: Other Endocrine/Autoimmune: None GI: GI bleed, Colon polyps, Diverticulitis : None HEENT: Chronic vision loss Psych: None Musculoskeletal: Osteoporosis Derm: None - Past Surgical History Past Surgical History: Yes General: Appendectomy Ortho: Arthroscopic surgery HEENT: Tonsil/Adenoidectomy - Present Medications Home Medications: Ambulatory Orders Medication Instructions Recorded Confirmed Amlodipine Besylate 5 mg PO DAILY 11/17/15 10/02/19 Aspirin EC [Ecotrin] 325 mg PO DAILY 10/02/19 10/02/19 Calcium Carbonate [Calcium] 600 mg PO DAILY 10/02/19 10/02/19 Donepezil [Aricept] 5 mg PO QPM 10/02/19 10/02/19 Oxybutynin [Ditropan] 5 mg PO QPM 10/02/19 10/02/19 Pravastatin [Pravachol] 40 mg PO DAILY 10/02/19 10/02/19 Benzocaine/Menth/Cetyl [Cepacol] 1 lozenge MM Q3H PRN #20 lozenge 10/11/19 Lisinopril [Zestril] 40 mg PO DAILY #15 tablet 10/11/19 Omeprazole 20 mg PO DAILY #15 capsule. 10/11/19 - Allergies Allergies/Adverse Reactions: Allergies Allergy/AdvReac Type Severity Reaction Status Date / Time Sulfa (Sulfonamide AdvReac Unknown Verified 10/20/20 19:16 Antibiotics) - Social History Does the pt smoke?: No Smoking Status: Never smoker Does the pt drink ETOH?: No Does the pt have substance abuse?: No - Immunizations Immunizations are current?: Yes - POLST Patient has POLST: Yes PD ED PE EXPANDED - General General: Alert, No acute distress, Well developed/nourished - HEENT HEENT: Right nares epsitaxis (Bleeding ulceration right lateral inner anterior nares.) Results - Vitals Vitals: Vital Signs - 24 hr 10/20/20 10/20/20 19:12 19:18 Temperature 36.1 C L 36.5 C Heart Rate 79 79 Respiratory 16 16 Rate Blood Pressure 157/81 H 157/81 H O2 Saturation 97 97 Oxygen O2 Source Room air PD MEDICAL DECISION MAKING - ED course Complexity details: re-evaluated patient, d/w patient, d/w family ED course: 85-year-old female who has a history of dementia and resides at [facility] comes to the ER with right-sided epistaxis. She thinks she may have picked at her nose. On exam there is findings of a bleeding ulceration on the right lateral anterior nares. Initially she was packed with Afrin soaked gauze which improved the bleeding by about 50%. When that was not successful I packed the nares with trans-Soraida acid and that did successfully resolve her of the bleeding. She had stopped bleeding I did use of a little silver nitrate to prevent it from rebleeding in the future.. The tracing was placed in the wound and she is discharged back to [facility]. On exam there is no findings to suggest an posterior nosebleed. Impression: Right anterior nares epistaxis Departure - Departure Disposition: 01 Home, Self Care Condition: Stable Record reviewed to determine appropriate education?: Yes Instructions: Nosebleed Comments: ~You are seen in the ER today for nosebleed. I suspect that you may have picked a small scab that bled. We did use a combination of trans-Soraida acid Afrin nasal spray and silver nitrate swab. You do not appear to be bleeding anymore. If you do develop a nosebleed again hold gentle pressure with a nasal clamp for 30 minutes. If bleeding does not stop after that then please return to the ER.
[2020-10-20] MEDS ORDERED: SILVER NITRATE APPLICATOR TOP STA (20:07)
[2020-10-20 20:53] VITALS: BP 140/80
== END 2020-10-20 20:52 | disposition home or self-care (01) ==
LOC: ED 19:08
DX: R04.0 Epistaxis (principal); Z79.82 Long term (current) use of aspirin; I10 Essential (primary) hypertension
CPT/HCPCS: 30901; 99282; 99283; A9270

== ENCOUNTER 2021-01-07 09:16 | Outpatient (CLI) | payer BC | END 2021-01-07 09:17 | disposition critical access hospital (66) | LOC: EMS 09:16 | DX: R53.1 Weakness (principal) | CPT/HCPCS: A0425; A0429 ==

== ENCOUNTER 2021-01-07 09:36 | Emergency (ER) | payer BC ==
[2021-01-07] MEDS ORDERED: SODIUM CHLORIDE 0.9% 1,000 ML IV STA (09:48)
[2021-01-07 10:02] LABS: BASOPHILS % (AUTO) 0.2 %; EOSINOPHILS % (AUTO) 0.1 %; HCT - HEMATOCRIT 37.2 % (37.0-47.0); HGB - HEMOGLOBIN 11.9 g/dL (12.0-16.0); LYMPHOCYTES # (AUTO) 0.5 10^3/uL (1.5-3.5); LYMPHOCYTES % (AUTO) 2.4 %; MEAN CORPUSCULAR HEMOGLOBIN 26.3 pg (27.0-31.0); MEAN CORPUSCULAR VOLUME 82.1 fL (81.0-99.0); MEAN PLATELET VOLUME 12.1 fL (7.9-10.8); MONOCYTES % (AUTO) 5.5 %; NEUTROPHILS % (AUTO) 91.2 %; PLT - PLATELET COUNT 174 10^3/uL (130-450); RED BLOOD COUNT 4.53 10^6/uL (4.20-5.40); WHITE BLOOD COUNT 18.7 x10^3/uL (4.8-10.8)
[2021-01-07 10:39] LABS: ALBUMIN/GLOBULIN RATIO 1.2 (1.0-2.2); CALCIUM 10.7 mg/dL (8.5-10.3); CREATININE 0.5 mg/dL (0.4-1.0); POTASSIUM 3.3 mmol/L (3.5-5.0); TOTAL PROTEIN 7.4 g/dL (6.7-8.2)
[2021-01-07] MEDS ORDERED: IOPAMIDOL-300 100 ML VIAL ONE (12:03)
[2021-01-07 12:42] LABS: B. PARAPERTUSSIS- RESP PCR PAN NOT DETECTED; B. PERTUSSIS- RESP PCR PANEL NOT DETECTED; C. PNEUMONIAE- RESP PCR PANEL NOT DETECTED; CORONAVIRUS 229E-RESP PCR NOT DETECTED; CORONAVIRUS HKU1-RESP PCR NOT DETECTED; CORONAVIRUS NL63-RESP PCR NOT DETECTED; CORONAVIRUS OC43-RESP PCR NOT DETECTED; HUMAN METAPNEUMOVIRUS NOT DETECTED; INFLUENZA A- RESP PCR PANEL NOT DETECTED; INFLUENZA B - RESP PCR PANEL NOT DETECTED; M. PNEUMONIAE- RESP PCR PANEL NOT DETECTED; PARAINFLUENZA VIRUS 1 NOT DETECTED; PARAINFLUENZA VIRUS 2 NOT DETECTED; PARAINFLUENZA VIRUS 3 NOT DETECTED; PARAINFLUENZA VIRUS 4 NOT DETECTED; RHINOVIRUS/ENTEROVIRUS NOT DETECTED; RSV- RESP PCR PANEL NOT DETECTED; SARS-CoV-2 -RESP PCR PANEL NOT DETECTED
--- NOTE | 2021-01-07 13:04 | CT Report ---
PROCEDURE: Abdomen/Pelvis W INDICATIONS: ALOC, jaundice, elev LFTs CONTRAST: IV CONTRAST: Isovue 300 ml: 100 PO CONTRAST: *NO PO CONTRAST TECHNIQUE: After the administration of IV contrast, 5 mm thick sections acquired from the diaphragms to the symp hysis. 5 mm thick coronal and sagittal reformats were acquired. For radiation dose reduction, the f ollowing was used: automated exposure control, adjustment of mA and/or kV according to patient size. COMPARISON: CT of abdomen and pelvis dated 10/08/2019. FINDINGS: Image quality: Excellent. ABDOMEN: Lung bases: Basilar atelectasis is seen. Heart size is enlarged, no pericardial effusion. Solid organs: Liver is enlarged. Heterogeneous liver parenchymal enhancement is seen. No definite dis crete hepatic lesion is identified. Gallbladder is distended with numerous gallstones seen. There is suggestion of gallbladder wall thickening and trace pericholecystic fluid concerning for acute cholec ystitis. There is no gross intrahepatic biliary ductal dilatation. Proximal common bile duct is diste nded and measures up to 1 cm in diameter series 6 image 21 and series 3 image 34. Pancreas is slightl y atrophic in and appearance. No discrete pancreatic lesion is seen. Spleen is normal in size and enh ancement. No adrenal nodules. Kidneys demonstrate normal size and enhancement, without hydronephrosi s. Peritoneum and bowel: There is no evidence of bowel obstruction. Nonspecific mild mesenteric fat stra nding in right upper quadrant abdomen is seen adjacent to distal ascending colon. Questionable termin al ileal wall thickening is seen. The appendix is visualized and is within normal limits. No abscess collection. No free fluid or free air. Mild fecal distention of rectum is noted.. Nodes and vessels: Enlarged retroperitoneal lymph nodes are seen measures up to 1.1 cm in short axis diameter in left periaortic space series 3 image 35 and 44. Enlarged mesenteric lymph nodes are also noted measures up to 1.3 cm in short axis diameter in right upper quadrant abdomen series 3 image 47. Aorta and inferior vena cava are normal in size. Miscellaneous: No ventral hernias. PELVIS: Genitourinary: Bladder wall thickness is normal. Uterus containing multiple calcified fibroids near its fundus. No gross abnormalities are seen in bilateral ovaries. Miscellaneous: No inguinal hernias or adenopathy. Bones: No suspicious bony lesions. No vertebral body compression fractures. IMPRESSION: 1. Cholelithiasis with gallbladder wall thickening and trace amount of pericholecystic fluid. Mild di latation of common bile duct. Finding is suggestive of acute cholecystitis. 2. Hepatomegaly and heterogeneous contrast enhancement of liver without discrete hepatic lesion. No g ross intrahepatic biliary ductal dilatation. 3. Enlarged mesenteric and retroperitoneal lymph nodes suggestive of reactive inflammatory lymphadeno salena. 4. No evidence of bowel obstruction. Questionable wall thickening involving terminal ileum with mild mesenteric fat stranding in right side of abdomen which may represent reactive inflammatory changes f rom adjacent gallbladder. Low-grade terminal ileitis cannot be excluded. No abscess collection. No fr ee fluid or free air. 5. Bibasilar dependent atelectasis. Cardiomegaly. Mild to moderate atherosclerotic disease. Reviewed by: Kike Dean MD on 01/07/2021 1:03 PM PDT Approved by: Kike Dean MD on 01/07/2021 1:03 PM PDT Station ID: [id number]
[2021-01-07] MEDS ORDERED: PIPERACILLIN/TAZOBACTAM 4.5 GM in SODIUM CHLORIDE 0.9% MINIBAG 100 ML IV STA ×2 (13:37→19:20)
[2021-01-07] MEDS ORDERED: IOPAMIDOL-300 100 ML VIAL IVP ONE (13:54)
--- NOTE | 2021-01-07 15:03 | Ultrasound Report ---
PROCEDURE: Abdomen Limited INDICATIONS: cholecystitis TECHNIQUE: Real-time scanning was performed of the abdominal and retroperitoneal organs, with image documentatio n. COMPARISON: CT abdomen/pelvis 01/07/2021 and 10/02/2019. FINDINGS: Liver: Liver is mildly enlarged, measuring up to 18.5 cm in maximum dimension with heterogeneous ech otexture. A prominent echogenic portal triads may indicate hepatic edema. Gallbladder: Gallstones and sludge are seen within the gallbladder. The gallbladder wall measures up to 5 mm in thickness. A trace amount of pericholecystic fluid is present. Sonographic Avila sign is unreliable in the setting of pain medications. Biliary ducts: Intrahepatic bile ducts are non-dilated. The common hepatic duct measures 3 mm in di ameter. The midportion of the common bile duct measures 13 mm. The distal common bile duct measures 6 mm in diameter. Pancreas: Visualized portions of the pancreas are sonographically normal. Spleen: Spleen is normal in size and homogeneous in echotexture. Kidney: Right kidney is normal in size and echotexture. Right kidney measures 10.9 cm long. No hydr onephrosis or nephrolithiasis. No solid masses. IMPRESSION: 1. Cholelithiasis with gallbladder wall thickening and trace pericholecystic fluid is suspicious for acute cholecystitis. 2. Hepatomegaly with nonspecific heterogeneous appearance of the liver. 3. Fusiform dilation of the central portion of the common bile duct, which tapers to a normal calibe r distally. This is nonspecific and is only mildly changed when compared to the prior CT from 10/02/19. However, a distal obstruction is not entirely excluded. Recommend correlation with laboratory shelli ues and clinical findings. MRCP could be obtained if there is suspicion for choledocholithiasis. Reviewed by: Dennis Quintero MD on 01/07/2021 3:02 PM PDT Approved by: Dennis Quintero MD on 01/07/2021 3:02 PM PDT Station ID: [id number]
--- NOTE | 2021-01-07 16:21 | ED Physician Documentation ---
History of Present Illness - Stated complaint Stated Complaint: GEN WEAKNESS - Chief complaint Chief Complaint: Abd Pain - History obtained from History obtained from: Patient - Additonal information Additional information: PT sent from her [facility] for CC of generalized weakness and confusion. Pt has dementia at baseline. She cannot specify how long she has felt weak. No other specific complaints. Denies pain anywhere. Review of Systems Ten Systems: 10 systems reviewed and negative Constitutional: reports: Reviewed and negative Eyes: reports: Reviewed and negative Ears: reports: Reviewed and negative Nose: reports: Reviewed and negative Throat: reports: Reviewed and negative Cardiac: reports: Reviewed and negative Respiratory: reports: Reviewed and negative GI: reports: Reviewed and negative : reports: Reviewed and negative Skin: reports: Reviewed and negative Musculoskeletal: reports: Reviewed and negative Neurologic: reports: Generalized weakness Psychiatric: reports: Reviewed and negative Endocrine: reports: Reviewed and negative Immunocompromised: reports: Reviewed and negative PD PAST MEDICAL HISTORY - Past Medical History Past Medical History: Yes Cardiovascular: Hypertension, High cholesterol, Coronary artery disease Respiratory: None Neuro: Other Endocrine/Autoimmune: None GI: GI bleed, Colon polyps, Diverticulitis : None HEENT: Chronic vision loss Psych: None Musculoskeletal: Osteoporosis Derm: None - Past Surgical History Past Surgical History: Yes General: Appendectomy Ortho: Arthroscopic surgery HEENT: Tonsil/Adenoidectomy - Present Medications Home Medications: Ambulatory Orders Medication Instructions Recorded Confirmed Amlodipine Besylate 5 mg PO DAILY 11/17/15 10/02/19 Aspirin EC [Ecotrin] 325 mg PO DAILY 10/02/19 10/02/19 Calcium Carbonate [Calcium] 600 mg PO DAILY 10/02/19 10/02/19 Donepezil [Aricept] 5 mg PO QPM 10/02/19 10/02/19 Oxybutynin [Ditropan] 5 mg PO QPM 10/02/19 10/02/19 Pravastatin [Pravachol] 40 mg PO DAILY 10/02/19 10/02/19 Benzocaine/Menth/Cetyl [Cepacol] 1 lozenge MM Q3H PRN #20 lozenge 10/11/19 Lisinopril [Zestril] 40 mg PO DAILY #15 tablet 10/11/19 Omeprazole 20 mg PO DAILY #15 capsule. 10/11/19 - Allergies Allergies/Adverse Reactions: Allergies Allergy/AdvReac Type Severity Reaction Status Date / Time Sulfa (Sulfonamide AdvReac Unknown Verified 10/20/20 19:16 Antibiotics) - Social History Does the pt smoke?: No Smoking Status: Never smoker Does the pt drink ETOH?: No Does the pt have substance abuse?: No - Immunizations Immunizations are current?: Yes - POLST Patient has POLST: Yes PD ED PE NORMAL - Vitals Vital signs reviewed: Yes - General General: No acute distress, Well developed/nourished, Other (PT is alert) - HEENT HEENT: Atraumatic, PERRL, EOMI, Moist mucous membranes, Other (icteric) - Neck Neck: Supple, no meningeal sign - Cardiac Cardiac: RRR, No murmur, Strong equal pulses - Respiratory Respiratory: No respiratory distress, Clear bilaterally - Abdomen Abdomen: Soft, Non tender, Non distended - Back Back: No CVA TTP - Derm Derm: Warm and dry, Other (jaundiced) - Extremities Extremities: No deformity, No edema - 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, No motor deficit, No sensory deficit, Normal speech, Other (Alert, oriented to self.) - Psych Psych: Normal mood, Normal affect Results - Vitals Vitals: Vital Signs - 24 hr 01/07/21 01/07/21 01/07/21 09:50 11:30 13:10 Temperature 98 C H Heart Rate 80 68 61 Respiratory 19 22 20 Rate Blood Pressure 145/87 H 146/77 H 125/57 L O2 Saturation 93 93 95 01/07/21 01/07/21 01/07/21 15:04 17:28 19:35 Temperature Heart Rate 67 74 78 Respiratory 21 19 21 Rate Blood Pressure 136/67 H 161/80 H 179/92 H O2 Saturation 93 94 92 Oxygen O2 Source Room air - Labs Labs: Laboratory Tests 01/07/21 01/07/21 01/07/21 09:50 10:24 10:24 WBC 18.7 H RBC 4.53 Hgb 11.9 L Hct 37.2 MCV 82.1 MCH 26.3 L MCHC 32.0 RDW 16.0 H Plt Count 174 MPV 12.1 H Neut # (Auto) 17.0 H Lymph # (Auto) 0.5 L [place] # (Auto) 1.0 Eos # (Auto) 0.0 Baso # (Auto) 0.0 Absolute Nucleated RBC 0.00 Nucleated RBC % 0.0 Sodium 131 L Potassium 3.3 L Chloride 92 L Carbon Dioxide 26 Anion Gap 13.0 BUN 21 H Creatinine 0.5 Estimated GFR (MDRD) 117 Glucose 120 H Calcium 10.7 H Total Bilirubin 8.0 H AST 283 H ALT 363 H Alkaline Phosphatase 145 H Ammonia B-Natriuretic Peptide 960 H Total Protein 7.4 Albumin 4.0 Globulin 3.4 Albumin/Globulin Ratio 1.2 Lipase 24 Urine Color Urine Clarity Urine pH Ur Specific [place] Urine Protein Urine Glucose (UA) Urine Ketones Urine Occult Blood Urine Nitrite Urine Bilirubin Urine Urobilinogen Ur Leukocyte Esterase Urine RBC Urine WBC Ur Squamous Epith Cells Urine Bacteria Urine Mucus Ur Microscopic Review Urine Culture Comments Nasal Adenovirus (PCR) Nasal B. parapertussis DNA (PCR) Nasal Coronavir 229E PCR Nasal Coronavir HKU1 PCR Nasal Coronavir NL63 PCR Nasal Coronavir OC43 PCR Nasal Enterovir/Rhinovir PCR Nasal Influenza B PCR Nasal Influenza A PCR Nasal Parainfluen 1 PCR Nasal Parainfluen 2 PCR Nasal Parainfluen 3 PCR Nasal Parainfluen 4 PCR Nasal RSV (PCR) Nasal B.pertussis DNA PCR Nasal C.pneumoniae (PCR) Stevie Human Metapneumo PCR Nasal M.pneumoniae (PCR) Nasal SARS-CoV-2 (PCR) 01/07/21 01/07/21 01/07/21 11:25 11:38 19:25 WBC RBC Hgb Hct MCV MCH MCHC RDW Plt Count MPV Neut # (Auto) Lymph # (Auto) [place] # (Auto) Eos # (Auto) Baso # (Auto) Absolute Nucleated RBC Nucleated RBC % Sodium Potassium Chloride Carbon Dioxide Anion Gap BUN Creatinine Estimated GFR (MDRD) Glucose Calcium Total Bilirubin AST ALT Alkaline Phosphatase Ammonia 18.1 B-Natriuretic Peptide Total Protein Albumin Globulin Albumin/Globulin Ratio Lipase Urine Color DARK YELLOW Urine Clarity CLEAR Urine pH 6.5 Ur Specific [place] 1.015 Urine Protein 100 H Urine Glucose (UA) NEGATIVE Urine Ketones NEGATIVE Urine Occult Blood TRACE-INTA Urine Nitrite NEGATIVE Urine Bilirubin LARGE H Urine Urobilinogen 0.2 (NORMAL) Ur Leukocyte Esterase NEGATIVE Urine RBC 0-5 Urine WBC 0-3 Ur Squamous Epith Cells FEW Squamous Urine Bacteria None Seen Urine Mucus Few Strands Ur Microscopic Review INDICATED Urine Culture Comments NOT INDICATED Nasal Adenovirus (PCR) NOT DETECTED Nasal B. parapertussis DNA (PCR) NOT DETECTED Nasal Coronavir 229E PCR NOT DETECTED Nasal Coronavir HKU1 PCR NOT DETECTED Nasal Coronavir NL63 PCR NOT DETECTED Nasal Coronavir OC43 PCR NOT DETECTED Nasal Enterovir/Rhinovir PCR NOT DETECTED Nasal Influenza B PCR NOT DETECTED Nasal Influenza A PCR NOT DETECTED Nasal Parainfluen 1 PCR NOT DETECTED Nasal Parainfluen 2 PCR NOT DETECTED Nasal Parainfluen 3 PCR NOT DETECTED Nasal Parainfluen 4 PCR NOT DETECTED Nasal RSV (PCR) NOT DETECTED Nasal B.pertussis DNA PCR NOT DETECTED Nasal C.pneumoniae (PCR) NOT DETECTED Stevie Human Metapneumo PCR NOT DETECTED Nasal M.pneumoniae (PCR) NOT DETECTED Nasal SARS-CoV-2 (PCR) NOT DETECTED - Rads (name of study) CT abd/pelvis Radiology: Final report received, EMP read indepedently, See rad report (cholelithiasis, acute cholecystitis) US abd Radiology: Final report received, EMP read indepedently, See rad report (dilated CBD 12.6mm, thickened GB wall 4.9 mm) PD MEDICAL DECISION MAKING - ED course Complexity details: reviewed results, re-evaluated patient, considered diff erential, d/w patient ED course: PT was given IV fluids and worked up with labs, and found to have a significantly elevated bilirubin and LFTs, as well as WBC count. As such, she was worked up with CT, which showed cholecystitis and cholelithiasis, then US, which showed a CBD of 12.6 and GB wall of 4.9 mm. I d/w Dr. Restrepo, who stated that the pt needed ERCP, and could not stay here. I spoke with both general surgery and GI at [facility], both of whom agreed that pt needed ERCP, and was showing signs of ascending cholangitis. They agreed to pt transfer and damian mmended Zosyn, which was ordered. I then spoke with hospitalist Dr. Champion, who did accept the pt in transfer. Departure - Departure Disposition: 02 Transfer Acute Care Hosp Clinical Impression: Cholecystitis, Ascending cholangitis Condition: Serious Discharge Date/Time: 01/07/21 19:59
[2021-01-07 19:36] VITALS: BP 179/92
[2021-01-07 19:36] LABS: GLUCOSE, URINE (UA) NEGATIVE (NEGATIVE); KETONES,URINE (UA) NEGATIVE (NEGATIVE); LEUKOCYTE ESTERASE, URINE NEGATIVE (NEGATIVE); NITRITE,URINE NEGATIVE (NEGATIVE); OCCULT BLOOD,URINE TRACE-INTA (NEGATIVE); PH,URINE 6.5 PH (5.0-7.5); PROTEIN,URINE 100 mg/dL (NEGATIVE); UROBILINOGEN,URINE 0.2 (NORMAL) E.U./dL (NORMAL)
[2021-01-07 19:38] LABS: CLARITY,URINE CLEAR (CLEAR)
[2021-01-07 19:40] LABS: BILIRUBIN,URINE LARGE (NEGATIVE); ICTOTEST,URINE POSITIVE
[2021-01-07 19:42] LABS: BACTERIA,URINE None Seen /HPF (None Seen); MUCUS,URINE Few Strands; RBC,URINE 0-5 /HPF (0-5); SQUAMOUS EPITHELIAL CELL,UR FEW Squamous (<= Few); WBC,URINE 0-3 /HPF (0-5)
== END 2021-01-07 19:59 | disposition short-term general hospital (02) ==
LOC: EDUNIT# → ED 09:36
DX: K80.10 Calculus of gallbladder with chronic cholecystitis without obstruction (principal); K83.09 Other cholangitis; Z20.822 Contact with and (suspected) exposure to COVID-19
CPT/HCPCS: 0202U; 36415; 74177; 76705; 80053; 81001; 82140; 83690; 83880; 85025; 93005; 96361; 96365; 99285; Q9967; 81003; 87086

== ENCOUNTER 2021-01-07 19:53 | Outpatient (CLI) | payer BC | END 2021-01-07 19:54 | disposition short-term general hospital (02) | LOC: EMS 19:53 | PROVIDERS: ATTEND Emergency Medicine | DX: K83.09 Other cholangitis (principal); K81.9 Cholecystitis, unspecified | CPT/HCPCS: A0425; A0426 ==

== ENCOUNTER 2021-02-13 08:14 | Day surgery (SDC) | payer BC ==
[~2021-02-13 08:14] MED LIST: CEFAZOLIN SODIUM IN 0.9 % NACL 2 GM/100 ML BAG IV ONE
[2021-02-13] MEDS ORDERED: LACTATED RINGERS 1,000 ML IV ONE ×2 (08:16→10:59)
[2021-02-13] MEDS ORDERED: BUPIVACAINE 0.25% PF 30 ML VIAL ONE (08:49)
[2021-02-13] MEDS ORDERED: fentaNYL 100 MCG/2 ML VIAL ONE (09:09)
[2021-02-13] MEDS ORDERED: ATROPINE ABBOJECT 1 MG/10 ML SYRINGE IVP PRN (09:09)
[2021-02-13] MEDS ORDERED: HYDROmorphone 0.5 MG/0.5 ML SYRINGE IVP PRN (09:09)
[2021-02-13] MEDS ORDERED: METOCLOPRAMIDE 10 MG/2 ML VIAL IVP PRN (09:09)
[2021-02-13] MEDS ORDERED: NALOXONE 0.4 MG/ML VIAL IVP PRN (09:09)
[2021-02-13] MEDS ORDERED: fentaNYL 100 MCG/2 ML VIAL IVP PRN (09:09)
[2021-02-13] MEDS ORDERED: ePHEDrine 50 MG/ML VIAL IVP PRN (09:09)
[2021-02-13] MEDS ORDERED: MORPHINE 2 MG/ML CARPUJECT IVP PRN (09:09)
--- NOTE | 2021-02-13 09:09 | ANESTHESIA ---
Pre-Anesthesia VS, & Labs - Diagnosis cholelithiasis - Procedure lap cholecystectomy Height: 5 ft 9 in Weight (kg): 66.7 kg Body Mass Index: 21.7 BMI Classification: Healthy weight - NPO >8 hours - Is Patient ?: No Home Medications and Allergies Amlodipine Besylate 5 mg PO DAILY 11/17/15 Aspirin EC [Ecotrin] 325 mg PO DAILY 10/02/19 Calcium Carbonate [Calcium] 600 mg PO DAILY 10/02/19 Donepezil [Aricept] 5 mg PO QPM 10/02/19 Oxybutynin [Ditropan] 5 mg PO QPM 10/02/19 Pravastatin [Pravachol] 40 mg PO DAILY 10/02/19 Allergies/Adverse Reactions: Allergies Allergy/AdvReac Type Severity Reaction Status Date / Time Sulfa (Sulfonamide AdvReac Unknown Verified 10/20/20 19:16 Antibiotics) Anes History & Medical History - Anesthetic History Anesthesia Complications: reports: No previous complications Family history of Anesthesia Complications: Denies Family history of Malignant Hyperthermia: Denies - Medical History Cardiovascular: reports: Hypertension, High cholesterol, Coronary artery disease Pulmonary: reports: None Gastrointestinal: reports: GI bleed, Colon polyps, Diverticulitis Urinary: reports: None Neuro: reports: Other Musculoskeletal: reports: Osteoporosis Endocrine/Autoimmune: reports: None Blood Disorders: reports: None Skin: reports: None Smoking Status: Never smoker - Surgical History General: reports: Appendectomy, Bowel surgery Eyes Ears Nose Throat (EENT): reports: Tonsil/Adenoidectomy Orthopedic: reports: Arthroscopic surgery Exam General: Alert, Oriented x3, Cooperative Dental: Loose/Frag, Partials Upper, Partials Lower Mouth Openin Fingerbreadth Neck Mobility: Normal Mallampati classification: III Thyromental Distance: 4-6 cm Respiratory: Lungs clear Plan Anesthesia Type: General Consent for Procedure(s) Verified and Reviewed: Yes Code Status: Do Not Attempt Resuscitation (pt wishes to have airway and med management only, no chest compressions or cardioversion) ASA classification: 3-Severe systemic disease Is this case an emergency?: No
[2021-02-13] MEDS ORDERED: ePHEDrine 50 MG/ML VIAL IVP ONE (09:30)
[2021-02-13] MEDS ORDERED: BUPIVACAINE 0.25% PF 30 ML VIAL SUBQ ONE ×2 (09:53→10:29)
[2021-02-13] MEDS ORDERED: LACTATED RINGERS 1,000 ML IV SCH ×2 (10:00→11:00)
[2021-02-13] MEDS ORDERED: DEXAMETHASONE 4 MG/ML VIAL ONE (10:27)
[2021-02-13] MEDS ORDERED: PROPOFOL 200 MG/20 ML VIAL IVP ONE (10:27)
[2021-02-13] MEDS ORDERED: LIDOCAINE-MPF 2% 5 ML VIAL ONE (10:27)
[2021-02-13] MEDS ORDERED: SUGAMMADEX 200 MG/2 ML VIAL IVP ONE (10:27)
[2021-02-13] MEDS ORDERED: KETOROLAC 30 MG/ML VIAL ONE (10:27)
[2021-02-13] MEDS ORDERED: BUPIVACAINE 0.25% PF 10 ML VIAL ONE (10:32)
[2021-02-13] MEDS ORDERED: PROCHLORPERAZINE 5 MG TABLET PO PRN (11:02)
--- NOTE | 2021-02-13 11:51 | OPERATIVE REPORT ---
Operative Report - General Procedure Date: 02/13/21 Planned Procedure: laparoscopic cholecystectomy Pre-Op Diagnosis: chronic cholecystitis and history choledocholithiasis Procedure Performed: laparoscopic cholecystectomy Post Op Diagnosis: same - Procedure Note Primary Surgeon: daksha woodson Anesthesia Technique: General ET tube, Local Pathology: gallbladder Estimated Blood Loss (mL): 5 Drain/Tube Type: Other (none) Indications: as above Findings: chronic cholecystitis. normal diameter common bile duct Complications: none - Other Other Information/Narrative: The patient was properly identified, brought to the operating room and placed in supine position. Sequential compression devices were placed. General endotracheal anesthesia was induced. The patient was prepped and draped in a sterile fashion and given preoperative antibiotics. Local anesthetic was given to incision areas. An incision was made in the periumbilical area. Dissection proceeded down to fascia. The fascia was incised lifted upwards and abdomen entered with a Veress needle. CO2 was insufflated to a pressure of 15. An 11 mm trocar followed by a 30 degree scope was placed. There was no evidence of injury from Veress needle or trocar placement. Under direct vision 2 5 mm trochars were placed in the right upper quadrant and an 11 mm trocar was placed in the epigastrium. Body of the gallbladder was retracted anterior. Lateral attachments were partially taken down further mobilizing the gallbladder more anterior and away from the duodenum. The infundibulum of the gallbladder was then retracted right lateral and caudad. With minimal use of cautery a large bare cystic plate area or window was carefully created. The cystic duct was inspected from right lateral and left lateral positions. [] The cystic duct was then clipped at the gallbladder and 3 times slightly proximal and sharply divided. The cystic artery was clipped at the gallbladder and then 2 times slightly proximal and sharply divided. Posterior cystic artery and fine arterioles of the liver bed separately clipped. The gallbladder was mobilized off from the bed of the liver with hook cautery. The gallbladder was placed in Endo Catch bag and brought out through the epigastric trocar site. Hemostasis was assured. Trochars were removed under direct vision. Fascia at the larger trocar sites was closed with [id number] are running 0 Vicryl suture. Subcutaneous tissue was irrigated and skin closed with interrupted 4-0 Monocryl. Dressings were applied. Patient tolerated the procedure well was awakened and brought to recovery in good condition.
[2021-02-13] MEDS ORDERED: PROMETHAZINE 25 MG/1 ML VIAL ONE (12:11)
--- NOTE | 2021-02-13 12:27 | ANESTHESIA POST OP EVALUATION ---
Anesthesia Post Eval - Post Anesthesia Eval Vitals: Last Vital Signs Temp 36.7 C 02/13/21 11:58 Pulse 62 02/13/21 11:58 Resp 17 02/13/21 11:58 BP 139/70 H 02/13/21 11:58 Pulse Ox 97 02/13/21 11:58 CV Function Including HR & BP: Stable Pain Control: Satisfactory Nausea & Vomiting: Negative Mental Status: Baseline Respiratory Status: Airway Patent Hydration Status: Satisfactory Anesthesia Complications: None
[2021-02-13] MEDS ORDERED: PROMETHAZINE INJ 12.5 MG in SODIUM CHLORIDE 0.9% 50 ML IV ONE (13:00)
[2021-02-13] MEDS: HYDROcod/ACETAM 5/325 MG TABLET PO PRN ×2 (13:12→19:01)
[2021-02-13 18:49] VITALS: BP 114/83
[2021-02-13] MEDS ORDERED: OXYBUTYNIN 5MG TABLET PO SCH (21:00)
[2021-02-13] MEDS ORDERED: DONEPEZIL 5 MG TABLET PO SCH (21:00)
[2021-02-13] MEDS ORDERED: PRAVASTATIN 40 MG TABLET PO SCH (21:00)
[2021-02-14] MEDS ORDERED: amLODIPine 5 MG TABLET PO SCH (09:00)
[2021-02-14] MEDS ORDERED: lisinopriL 20 MG TABLET PO SCH (09:00)
== END 2021-02-13 19:14 | disposition home or self-care (01) ==
LOC: SDS 08:14 → MS2 11:57 → SDS 19:14
PROVIDERS: ATTEND Surgery
PROC: 0FT44ZZ Resection of Gallbladder, Percutaneous Endoscopic Approach (ICD-10-PCS; principal; 2021-02-13 09:15)
DX: K80.10 Calculus of gallbladder with chronic cholecystitis without obstruction (principal)
CPT/HCPCS: 47562; A9270; J0690; J7040; J7120

== ENCOUNTER 2021-03-20 12:54 | Outpatient (CLI) | payer BC | END 2021-03-20 23:59 | disposition home or self-care (01) | LOC: LAB 12:54 | PROVIDERS: ATTEND Family Medicine | DX: R30.0 Dysuria (principal) | CPT/HCPCS: 87086 ==

== ENCOUNTER 2021-10-29 20:26 | Outpatient (CLI) | payer BC | END 2021-10-29 20:27 | disposition critical access hospital (66) | LOC: EMS 20:26 | DX: M54.9 Dorsalgia, unspecified (principal); W19.XXXA Unspecified fall, initial encounter; Y92.098 Other place in other non-institutional residence as the place of occurrence of the external cause | CPT/HCPCS: A0425; A0429 ==

== ENCOUNTER 2022-02-23 16:18 | Outpatient (CLI) | payer OTHER | END 2022-02-23 16:19 | disposition critical access hospital (66) | LOC: EMS 16:18 | DX: R04.0 Epistaxis (principal); F03.90 Unspecified dementia, unspecified severity, without behavioral disturbance, psychotic disturbance, mood disturbance, and anxiety; Z79.82 Long term (current) use of aspirin | CPT/HCPCS: A0425; A0429 ==

== ENCOUNTER 2022-02-23 16:36 | Emergency (ER) | payer OTHER ==
[2022-02-23] MEDS ORDERED: OXYMETAZOLINE HCL 100 SPRAYS BOTTLE NAS STA (17:03)
[2022-02-23] MEDS ORDERED: AMOX/CLAV 875 MG/125 MG TABLET PO STA (17:52)
--- NOTE | 2022-02-23 18:29 | ED Physician Documentation ---
History of Present Illness - Stated complaint Stated Complaint: BLOODY NOSE - Chief complaint Chief Complaint: Heent - Additonal information Additional information: Patient 86-year-old female with known history of dementia presenting from her care facility with right-sided nosebleed. Per EMS began a few hours ago. Patient takes aspirin but is not on anticoagulation. Further history limited by her dementia. Review of Systems Unable to obtain: Dementia PD PAST MEDICAL HISTORY - Past Medical History Past Medical History: Yes Cardiovascular: Hypertension, High cholesterol, Coronary artery disease Respiratory: None Neuro: Dementia, Other Endocrine/Autoimmune: None GI: GI bleed, Colon polyps, Diverticulitis : None HEENT: Chronic vision loss Psych: None Musculoskeletal: Osteoporosis Derm: None - Past Surgical History Past Surgical History: Yes General: Appendectomy, Bowel surgery Ortho: Arthroscopic surgery HEENT: Tonsil/Adenoidectomy - Present Medications Home Medications: Ambulatory Orders Medication Instructions Recorded Confirmed Amlodipine Besylate 5 mg PO DAILY 11/17/15 10/29/21 Calcium Carbonate [Calcium] 600 mg PO DAILY 10/02/19 10/29/21 Donepezil [Aricept] 5 mg PO QPM 10/02/19 10/29/21 Oxybutynin [Ditropan] 5 mg PO QPM 10/02/19 10/29/21 Pravastatin [Pravachol] 40 mg PO DAILY 10/02/19 10/29/21 Lisinopril [Zestril] 40 mg PO DAILY #15 tablet 10/11/19 10/29/21 Omeprazole 20 mg PO DAILY #15 capsule. 10/11/19 10/29/21 - Allergies Allergies/Adverse Reactions: Allergies Allergy/AdvReac Type Severity Reaction Status Date / Time Sulfa (Sulfonamide AdvReac Unknown Verified 02/23/22 16:47 Antibiotics) - Social History Does the pt smoke?: No Smoking Status: Never smoker Does the pt drink ETOH?: No Does the pt have substance abuse?: No - Immunizations Immunizations are current?: Yes - POLST Patient has POLST: Yes PD ED PE NORMAL - Vitals Vital signs reviewed: Yes - General General: No acute distress - HEENT HEENT: Other (Active bleeding from the right nare.) - Neck Neck: Supple, no meningeal sign - Cardiac Cardiac: RRR - Respiratory Respiratory: No respiratory distress - Abdomen Abdomen: Non tender Results - Vitals Vitals: Vital Signs - 24 hr 02/23/22 16:40 Temperature 36.6 C Heart Rate 85 Respiratory 17 Rate Blood Pressure 157/89 H O2 Saturation 97 Oxygen O2 Source Room air Procedures - Epistaxis Site: Right, Anterior Preparation: Clots removed, Afrin Treatment: Packing inserted Other: Other (Patient ripped out packing material approximately 5 minutes after its insertion) PD MEDICAL DECISION MAKING - ED course Complexity details: re-evaluated patient, considered differential, d/w patient ED course: Patient 86-year-old female presenting to the emergency department with active right-sided nosebleed. Appears anterior in nature. Attempted oxymetazoline and clamping in the emergency department however patient was poorly tolerant of this, continually touching her nose. Subsequently placed right sided packing material. This was held in place for approximately 5 minutes before the patient removed the packing material herself. She did not have recurrent bleeding after its removal. She was treated once more with oxymetazoline in the emergency department. Bleeding at this time is subsided. She has been strongly encouraged to not touch her nose. Additionally discussed strategy for any recurrent nosebleed and wrote this in her discharge instructions. Will discharge at this time back to her care facility. Clear return precautions given prior to discharge. Departure - Departure Disposition: 01 Home, Self Care Clinical Impression: Bleeding nose Instructions: Nosebleed Comments: For any recurrent bleeding I want Her to 1. Vigorously blow your nose for 1 to 2 minutes to clear out blood clots. 2. Use 4 to 6 sprays of oxymetazoline in your naris bilaterally 3. Placed the nasal clamp provided here in the emergency department directly onto the soft cartilaginous portion of your nose and leave it in place for 30 minutes Please make a follow-up appoint with your primary care doctor. If it anytime you have any new or worsening symptoms please not hesitate to return.
[2022-02-23 19:18] VITALS: BP 166/70
== END 2022-02-23 19:22 | disposition home or self-care (01) ==
LOC: EDUNIT# → ED 16:36
DX: R04.0 Epistaxis (principal); I10 Essential (primary) hypertension
CPT/HCPCS: 30901; 99281; 99283; A9270

== ENCOUNTER 2022-02-23 19:19 | Outpatient (CLI) | payer OTHER | END 2022-02-23 19:20 | disposition home or self-care (01) | LOC: EMS 19:19 | PROVIDERS: ATTEND Student in an Organized Health Care Education/Training Program | DX: R04.0 Epistaxis (principal); F03.90 Unspecified dementia, unspecified severity, without behavioral disturbance, psychotic disturbance, mood disturbance, and anxiety | CPT/HCPCS: A0425; A0428 ==

== ENCOUNTER 2022-02-23 23:12 | Outpatient (CLI) | payer OTHER | END 2022-02-23 23:13 | disposition critical access hospital (66) | LOC: EMS 23:12 | DX: R04.0 Epistaxis (principal); F03.90 Unspecified dementia, unspecified severity, without behavioral disturbance, psychotic disturbance, mood disturbance, and anxiety | CPT/HCPCS: A0425; A0429 ==

== ENCOUNTER 2022-02-23 23:29 | Emergency (ER) | payer OTHER ==
[2022-02-24] MEDS ORDERED: OXYMETAZOLINE HCL 100 SPRAYS BOTTLE NAS STA (00:13)
[2022-02-24] MEDS ORDERED: LIDOCAINE VISCOUS 2% 15 ML UDC MM STA (00:13)
[2022-02-24] MEDS ORDERED: SILVER NITRATE APPLICATOR TOP ONE ×2 (01:02→01:04)
--- NOTE | 2022-02-24 01:09 | ED Physician Documentation ---
PD HPI HEENT - Stated complaint Stated Complaint: NOSE BLEED - Chief complaint Chief Complaint: Heent - History obtained from History obtained from: EMS - History of Present Illness Timing - onset: Today Timing - details: Intermittant Location: Nose Recently seen: Emergency Dept - Additional information Additional information: BIBA for epistaxis. Patient unable to contribute to HPI/ROS due to dementia. She was T+R from this ED earlier today for same problem. ED MD note from this prev ious visit indicates rapid rhino device was placed but patient pulled the device out shortly after it was placed (while she was still in ED); the bleeding did not restart, however, and thus after no further bleeding with subsequent ED observation, she was discharged. She returns due to recurrence of the epistaxis, right nare. No report of injury from staff at patient's care facility. Not on blood thinners except ASA (per ED MD note from earlier today). Review of Systems Unable to obtain: Dementia PD PAST MEDICAL HISTORY - Past Medical History Past Medical History: Yes Cardiovascular: Hypertension, High cholesterol, Coronary artery disease Respiratory: None Neuro: Dementia, Other Endocrine/Autoimmune: None GI: GI bleed, Colon polyps, Diverticulitis : None HEENT: Chronic vision loss Psych: None Musculoskeletal: Osteoporosis Derm: None - Past Surgical History Past Surgical History: Yes General: Appendectomy, Bowel surgery Ortho: Arthroscopic surgery HEENT: Tonsil/Adenoidectomy - Present Medications Home Medications: Ambulatory Orders Medication Instructions Recorded Confirmed Amlodipine Besylate 5 mg PO DAILY 11/17/15 10/29/21 Calcium Carbonate [Calcium] 600 mg PO DAILY 10/02/19 10/29/21 Donepezil [Aricept] 5 mg PO QPM 10/02/19 10/29/21 Oxybutynin [Ditropan] 5 mg PO QPM 10/02/19 10/29/21 Pravastatin [Pravachol] 40 mg PO DAILY 10/02/19 10/29/21 Lisinopril [Zestril] 40 mg PO DAILY #15 tablet 10/11/19 10/29/21 Omeprazole 20 mg PO DAILY #15 capsule. 10/11/19 10/29/21 - Allergies Allergies/Adverse Reactions: Allergies Allergy/AdvReac Type Severity Reaction Status Date / Time Sulfa (Sulfonamide AdvReac Unknown Verified 02/23/22 23:32 Antibiotics) - Social History Does the pt smoke?: No Smoking Status: Never smoker Does the pt drink ETOH?: No Does the pt have substance abuse?: No - Immunizations Immunizations are current?: Yes - POLST Patient has POLST: Yes PD ED PE NORMAL - Vitals Vital signs reviewed: Yes - General General: No acute distress, Well developed/nourished, Other (awake, alert, follows commands. she is oriented to self only. she is confused and most answers are inappropriate for question asked) PD ED PE EXPANDED - HEENT HEENT: Right nares epsitaxis, Pharynx normal (small amount dried blood noted on tongue and teeth but no dry nor active bleeding posterior o/p (this appearance is s/o blood entering mouth from dripping down from the nose anteriorly rather than blood flowing from nose and posteriorly to o/p)). No: Left nares epistaxis Results - Vitals Vitals: Vital Signs - 24 hr 02/24/22 02/24/22 02/24/22 00:50 01:14 01:35 Temperature 36.9 C 36.9 C Heart Rate 71 68 77 Respiratory 18 16 18 Rate Blood Pressure 177/92 H 160/100 H 150/97 H O2 Saturation 96 97 100 Oxygen O2 Source Room air Procedures - Epistaxis Site: Right Preparation: Clots removed, Afrin, Lidocaine, Clamp / pressure applied Treatment: Silver Nitrate Other: Observed - no bleeding, Pt tolerated well PD MEDICAL DECISION MAKING - ED course Complexity details: reviewed old records, re-evaluated patient, considered differential ED course: small clots suctioned from right nare using damon-tip suction. A cotton ball with viscous lidocaine and oxymetazoline was placed in right nare for five minutes, removed, and right nare reinspected using otoscope. The source of the bleeding is clearly visualized: punctate raised vessel right nare anterior septum. The site is actively bleeding, non-pulsatile but brisk. Silver nitrate applied which briefly stopped the bleeding, but within approximately 45-60 seconds, the scab created with the silver nitrate began to bulge outwards as blood collected under it, and then oozing around it. I applied gentle damon- tip suction to the edge of the cauterized area, but the cauterization immediately detached from the septum and the bleeding resumed. Silver nitrate again applied (using a new silver nitrate stick), and hemostasis was achieved rapidly on this second attempt. No further bleeding during subsequent observation in ED and she is discharged back to her care facility. Departure - Departure Disposition: 01 Home, Self Care Clinical Impression: Bleeding nose Condition: Good Instructions: ED Nosebleed Comments: The source of the bleeding in the right nare (nostril) was seen on exam and cauterized. The cautery involves a chemical that crawford the blood vessel closed, but the blood vessel can open back up and bleed if it is picked at. Discharge Date/Time: 02/24/22 01:39
[2022-02-24] MEDS ORDERED: SILVER NITRATE APPLICATOR TOP STA ×2 (01:35→01:36)
[2022-02-24 01:41] VITALS: BP 150/97
== END 2022-02-24 01:39 | disposition home or self-care (01) ==
LOC: EDUNIT# → ED 23:29
DX: R04.0 Epistaxis (principal); I10 Essential (primary) hypertension
CPT/HCPCS: 30901; 30903; 99281; 99283; A9270

== ENCOUNTER 2022-02-24 01:39 | Outpatient (CLI) | payer OTHER | END 2022-02-24 01:40 | disposition home or self-care (01) | LOC: EMS 01:39 | PROVIDERS: ATTEND Emergency Medicine | DX: R41.0 Disorientation, unspecified (principal); R04.0 Epistaxis; F03.90 Unspecified dementia, unspecified severity, without behavioral disturbance, psychotic disturbance, mood disturbance, and anxiety | CPT/HCPCS: A0425; A0428 ==

== ENCOUNTER 2022-02-28 22:54 | Emergency (ER) | payer OTHER ==
[2022-02-28 23:04] VITALS: BP 154/63
[2022-02-28] MEDS ORDERED: OXYMETAZOLINE HCL 100 SPRAYS BOTTLE NAS STA (23:11)
--- NOTE | 2022-02-28 23:29 | ED Physician Documentation ---
PD HPI OPHTHO - Stated complaint Stated Complaint: BLOODY NOSE - Chief complaint Chief Complaint: Heent - History obtained from History obtained from: Patient - Additional information Additional information: 86yF presents from [place] with nosepicking causing recurrent epistaxis. patient not bleeding on arrival to ED but she is engaging in nosepicking actively in ED and difficult to redirect. Review of Systems Nose: reports: Epistaxis PD PAST MEDICAL HISTORY - Past Medical History Past Medical History: Yes Cardiovascular: Hypertension, High cholesterol, Coronary artery disease Respiratory: None Neuro: Dementia, Other Endocrine/Autoimmune: None GI: GI bleed, Colon polyps, Diverticulitis : None HEENT: Chronic vision loss Psych: None Musculoskeletal: Osteoporosis Derm: None - Past Surgical History Past Surgical History: Yes General: Appendectomy, Bowel surgery Ortho: Arthroscopic surgery HEENT: Tonsil/Adenoidectomy - Present Medications Home Medications: Ambulatory Orders Medication Instructions Recorded Confirmed Amlodipine Besylate 5 mg PO DAILY 11/17/15 02/28/22 Calcium Carbonate [Calcium] 600 mg PO DAILY 10/02/19 02/28/22 Donepezil [Aricept] 5 mg PO QPM 10/02/19 02/28/22 Oxybutynin [Ditropan] 5 mg PO QPM 10/02/19 02/28/22 Pravastatin [Pravachol] 40 mg PO DAILY 10/02/19 02/28/22 Lisinopril [Zestril] 40 mg PO DAILY #15 tablet 10/11/19 02/28/22 Omeprazole 20 mg PO DAILY #15 capsule. 10/11/19 02/28/22 Benzocaine/Menthol [Cepacol Sore 1 each MM 02/28/22 Throat Lozenge] Ketotifen Fumarate [Eye Itch 5 ml OP BID 02/28/22 02/28/22 Relief] Latanoprost/Pf [Latanoprost 0.005% 7.5 ml OP QPM 02/28/22 02/28/22 Eye Drop] Loratadine [Claritin] 10 mg PO DAILY 02/28/22 02/28/22 traMADol [Ultram] 50 mg PO Q4-6H PRN 02/28/22 02/28/22 - Allergies Allergies/Adverse Reactions: Allergies Allergy/AdvReac Type Severity Reaction Status Date / Time Sulfa (Sulfonamide AdvReac Unknown Verified 02/28/22 23:04 Antibiotics) - Social History Does the pt smoke?: No Smoking Status: Never smoker Does the pt drink ETOH?: No Does the pt have substance abuse?: No - Immunizations Immunizations are current?: Yes - POLST Patient has POLST: Yes PD ED PE NORMAL - Vitals Vital signs reviewed: Yes - General General: No acute distress, Other (dementia at baseline) - HEENT HEENT: Atraumatic, PERRL, EOMI, Moist mucous membranes, Pharynx benign, Other (R nare with dried blood. no visible site of bleeding. L naris clear) - Neck Neck: Supple, no meningeal sign - Psych Psych: Other (dementia at baseline) Results - Vitals Vitals: Vital Signs - 24 hr 02/28/22 22:54 Temperature 36.0 C L Heart Rate 88 Respiratory 16 Rate Blood Pressure 154/63 H O2 Saturation 95 Oxygen O2 Source Room air PD MEDICAL DECISION MAKING - ED course ED course: 86yF with pmh dementia and nose picking behavior p/w recurrent epistaxis from her NH. no visible bleeding on her arrival. bacitracin, afrin applied to both nares. we additionally clipped her nails, applied gloves to prevent nosepicking behavior. plan to dc home. return precautions given. Departure - Departure Disposition: 01 Home, Self Care Clinical Impression: Epistaxis Condition: Good Instructions: ED Nosebleed Comments: Ms. Delcid was seen for nosebleeds in the ED. she had no bleeding on arrival. Bacitracin ointment and afrin spray was applied to the nares and her fingernails were clipped. Please have her follow up with her primary care provider. Return to the ED for any other concerns. Discharge Date/Time: 03/01/22 00:21
== END 2022-03-01 00:21 | disposition home or self-care (01) ==
LOC: EDUNIT# → ED 22:54
DX: R04.0 Epistaxis (principal); I10 Essential (primary) hypertension
CPT/HCPCS: 11719; 99281; 99282; A9270

== ENCOUNTER 2022-03-01 00:24 | Outpatient (CLI) | payer OTHER | END 2022-03-01 23:59 | disposition home or self-care (01) | LOC: EMS 00:24 | PROVIDERS: ATTEND Emergency Medicine | DX: R04.0 Epistaxis (principal); F03.90 Unspecified dementia, unspecified severity, without behavioral disturbance, psychotic disturbance, mood disturbance, and anxiety; Z74.01 Bed confinement status | CPT/HCPCS: A0425; A0428 ==

== ENCOUNTER 2022-12-18 07:39 | Outpatient (CLI) | payer OTHER ==
[2022-12-18 11:59] LABS: BASOPHILS # (AUTO) 0.1 10^3/uL (0.0-0.1); BASOPHILS % (AUTO) 0.8 %; EOSINOPHILS # (AUTO) 0.1 10^3/uL (0.0-0.7); EOSINOPHILS % (AUTO) 1.5 %; HCT - HEMATOCRIT 32.2 % (37.0-47.0); HGB - HEMOGLOBIN 9.5 g/dL (12.0-16.0); LYMPHOCYTES # (AUTO) 0.8 10^3/uL (1.5-3.5); LYMPHOCYTES % (AUTO) 13.4 %; MEAN CORPUSCULAR HEMOGLOBIN 19.4 pg (27.0-31.0); MEAN CORPUSCULAR HGB CONC 29.5 g/dL (32.0-36.0); MEAN CORPUSCULAR VOLUME 65.8 fL (81.0-99.0); MONOCYTES # (AUTO) 0.4 10^3/uL (0.0-1.0); MONOCYTES % (AUTO) 6.5 %; NEUTROPHILS # (AUTO) 4.8 10^3/uL (1.5-6.6); NEUTROPHILS % (AUTO) 77.6 %; NRBC ABSOLUTE COUNT (AUTO) 0.02 x10^3/uL; NUCLEATED RED BLOOD CELLS AUTO 0.3 /100WBC; PLT - PLATELET COUNT 240 10^3/uL (130-450); RED BLOOD COUNT 4.89 10^6/uL (4.20-5.40); RED CELL DISTRIBUTION WIDTH 24.6 % (12.0-15.0); WHITE BLOOD COUNT 6.2 x10^3/uL (4.8-10.8)
[2022-12-18 12:25] LABS: ALBUMIN 4.1 g/dL (3.2-5.5); ALBUMIN/GLOBULIN RATIO 1.5 (1.0-2.2); ALKALINE PHOSPHATASE 77 IU/L (42-121); ALT ALANINE AMINOTRANSFERASE 7 IU/L (10-60); AST ASPARTATE AMINOTRANSFERASE 14 IU/L (10-42); BILIRUBIN,TOTAL 0.8 mg/dL (0.2-1.0); BUN - BLOOD UREA NITROGEN 17 mg/dL (6-20); CALCIUM 10.1 mg/dL (8.5-10.3); CARBON DIOXIDE - CO2 31 mmol/L (21-32); CHLORIDE 96 mmol/L (101-111); CHOL/HDL RATIO 2.2 (<4.4); CHOLESTEROL 120 mg/dL; CREATININE 0.4 mg/dL (0.6-1.3); GFR - MDRD 150 (>89); GLUCOSE 101 mg/dL (74-104); HDL CHOLESTEROL 54 mg/dL; LDL CHOLESTEROL,CALCULATED 55 mg/dL; POTASSIUM 3.3 mmol/L (3.5-4.5); SODIUM 134 mmol/L (135-145); THYROID STIMULATING HORMONE 4.09 uIU/mL (0.34-5.60); TOTAL PROTEIN 6.9 g/dL (6.4-8.9); TRIGLYCERIDES 55 mg/dL (48-352); VLDL CHOLESTEROL 11 mg/dL
== END 2022-12-18 07:40 | disposition home or self-care (01) ==
LOC: LAB.N 07:39
PROVIDERS: ATTEND Physician Assistant Medical
DX: E78.5 Hyperlipidemia, unspecified (principal); E03.9 Hypothyroidism, unspecified; D50.0 Iron deficiency anemia secondary to blood loss (chronic)
CPT/HCPCS: 36415; 80053; 80061; 83721; 84443; 85025

== ENCOUNTER 2023-01-19 07:22 | Outpatient (CLI) | payer OTHER | END 2023-01-19 07:23 | disposition critical access hospital (66) | LOC: EMS 07:22 | DX: S00.83XA Contusion of other part of head, initial encounter (principal); W19.XXXA Unspecified fall, initial encounter; Y92.092 Bedroom in other non-institutional residence as the place of occurrence of the external cause; Z79.82 Long term (current) use of aspirin | CPT/HCPCS: A0425; A0429 ==

== ENCOUNTER 2023-01-19 07:41 | Emergency (ER) | payer OTHER ==
--- NOTE | 2023-01-19 07:50 | ED Physician Documentation ---
History of Present Illness - Stated complaint Stated Complaint: GLF - History obtained from History obtained from: EMS - Additonal information Additional information: Patient is brought to the emergency department by EMS for chief complaint of ground-level fall. She lives at home place and has dementia and really is not able to offer any information about how she might of fallen. However, the staff reported to EMS that the patient's roommate came out and told them that the patient had fallen. They found the patient on the floor with a bruise on her forehead. They thought she was on "blood thinners" but she does not have any on her list of meds, other than aspirin. No when at home place could offer any further information about why they might of thought she was on anticoagulation. The patient was not found to have lost consciousness. She has had no other complaints in route. Her vital signs have been stable. No other complaints at this time. PD PAST MEDICAL HISTORY - Past Medical History Cardiovascular: Hypertension, High cholesterol, Coronary artery disease Respiratory: None Neuro: Dementia, Other Endocrine/Autoimmune: None GI: GI bleed, Colon polyps, Diverticulitis : None HEENT: Chronic vision loss Psych: None Musculoskeletal: Osteoporosis Derm: None - Past Surgical History Past Surgical History: Yes General: Appendectomy, Bowel surgery Ortho: Arthroscopic surgery HEENT: Tonsil/Adenoidectomy - Present Medications Home Medications: Ambulatory Orders Medication Instructions Recorded Confirmed Amlodipine Besylate 5 mg PO DAILY 11/17/15 01/19/23 Calcium Carbonate [Calcium] 600 mg PO DAILY 10/02/19 01/19/23 Donepezil [Aricept] 5 mg PO QPM 10/02/19 01/19/23 Oxybutynin [Ditropan] 5 mg PO QPM 10/02/19 01/19/23 Pravastatin [Pravachol] 40 mg PO DAILY 10/02/19 01/19/23 Lisinopril [Zestril] 40 mg PO DAILY #15 tablet 10/11/19 01/19/23 Omeprazole 20 mg PO DAILY #15 capsule. 10/11/19 01/19/23 Benzocaine/Menthol [Cepacol Sore 1 each MM 02/28/22 Throat Lozenge] Ketotifen Fumarate [Eye Itch 5 ml OP BID 02/28/22 01/19/23 Relief] Latanoprost/Pf [Latanoprost 0.005% 7.5 ml OP QPM 02/28/22 02/28/22 Eye Drop] Loratadine [Claritin] 10 mg PO DAILY 02/28/22 01/19/23 traMADol [Ultram] 50 mg PO Q4-6H PRN 02/28/22 02/28/22 Acetaminophen [Tylenol] 650 mg PO Q6H PRN 01/19/23 01/19/23 Aspirin [Alpena Aspirin] 81 mg PO DAILY 01/19/23 01/19/23 Furosemide [Lasix] 20 mg PO DAILY #14 tablet 01/19/23 - Allergies Allergies/Adverse Reactions: Allergies Allergy/AdvReac Type Severity Reaction Status Date / Time Sulfa (Sulfonamide AdvReac Unknown Verified 01/19/23 14:02 Antibiotics) - Social History Does the pt smoke?: No Smoking Status: Never smoker Does the pt drink ETOH?: No Does the pt have substance abuse?: No - Immunizations Immunizations are current?: Yes - POLST Patient has POLST: Yes PD ED PE NORMAL - Vitals Vital signs reviewed: Yes - General General: No acute distress, Well developed/nourished, Other (Alert) - HEENT HEENT: PERRL, EOMI, Moist mucous membranes, Other (Small contusion centrally located on forehead, no edema or bony step-off.) - Neck Neck: Supple, no meningeal sign, No bony TTP - Cardiac Cardiac: RRR, No murmur, Strong equal pulses - Respiratory Respiratory: No respiratory distress, Clear bilaterally - Abdomen Abdomen: Soft, Non tender, Non distended - Derm Derm: Normal color, Warm and dry, No rash - Extremities Extremities: No deformity, No tenderness to palpate, Normal ROM s pain, No edema - Neuro Neuro: Other (Grossly intact. The patient is alert and oriented to self only.) - Psych Psych: Normal mood, Normal affect Results - Vitals Vitals: Oxygen O2 Source Room air Oxygen Flow Rate 2 - Rads (name of study) head CT Relevant Findings:: Final report received, See rad report (nad) CXR Relevant Findings:: Final report received, See rad report (cardiomegaly, prominent interstitial markings) PD Medical Decision Making - ED course Complexity details: reviewed results, re-evaluated patient, considered differential, d/w patient ED course: The patient overall looked fairly well on arrival. She was found to have an oxygen saturation in the mid to upper 80s on room air, but lungs were clear, The patient was in no distress, and she had not had any respiratory issues that staff had reported. She was placed initially on 2 L of oxygen per nasal cannula. She was afebrile here. I did review her medication list and did not find any anticoagulants listed other than aspirin.The patient was worked up with a CT scan of the head and a chest x-ray. CT was negative for acute findings. CXR showed cardiomegaly which has developed sometime since the pt's last CXR in our system about 15 months ago. I felt the pt should be started on Lasix. Her nephew did arrive, and stated the pt had had increased LE edema for the past couple of months, but no respiratory changes, and that her breathing seemed at b aseline now. We did trial her off oxygen, and her O2 sats were in the lower 90's. I felt that it was likely her CHF exacerbation was a more chronic issue, given her lack of symptoms, than acute. As such, I felt that initial treatment at her [facility] was reasonable, as patient also has an appointment for the swelling coming up with her PCP in 4 days. Nephew was agreeable to this plan. We have discussed the usual indications for return. Departure - Departure Disposition: 01 Home, Self Care Clinical Impression: Closed head injury Qualifiers: Encounter type: initial encounter Qualified Code(s): S09.90XA - Unspecified injury of head, initial encounter CHF exacerbation Qualifiers: Heart failure type: unspecified Qualified Code(s): I50.9 - Heart failure, unspecified Condition: Stable Instructions: ED CHF General, ED Head Injury Closed Prescriptions: Furosemide [Lasix] 20 mg PO DAILY #14 tablet Comments: Farhana's head CT looks good. There is no evidence of bleeding in the brain or any skull fractures or other traumatic findings. Her chest x-ray shows that over time, her chronic congestive heart failure has progressed somewhat. Given the lack of acute symptoms, this has most likely been a gradual process over time, but she does have a little extra fluid in her system that will need to be taken off over the course of the next week or so. As such, she has been started on a dose of a diuretic, or "water pill" to help start this process. A prescription for the same has been electronically transmitted to the [facility] in [place]. When she goes to see her primary doctor on , you may talk about a longer-term plan for her, including medications and reevaluation of her congestive heart failure. For now, she is not struggling to breathe and has not had any respiratory issues at home place, and is stable for discharge. Forms: PCP List Discharge Date/Time: 01/19/23 09:15
[2023-01-19 08:00] VITALS: BP 167/87
--- NOTE | 2023-01-19 08:17 | XRAY Report ---
PROCEDURE: Chest 1 View X-Ray INDICATIONS: hypoxia TECHNIQUE: One view of the chest was acquired. COMPARISON: X-ray 10/31/2021. FINDINGS: Surgical changes and devices: Left chest wall pacemaker Lungs and pleura: Moderate right pleural effusion. Prominent interstitial markings bilaterally. Righ t sided patchy airspace opacities, atelectasis versus consolidation. Mediastinum: Mediastinal contours appear normal. Heart size is enlarged. Bones and chest wall: No suspicious bony lesions. Overlying soft tissues appear unremarkable. IMPRESSION: Cardiomegaly with prominent interstitial markings, likely representing pulmonary edema. Moderate righ t pleural effusion with adjacent atelectasis versus consolidation. Reviewed by: Roberto Feng MD on 01/19/2023 8:15 AM PDT Approved by: Roberto Feng MD on 01/19/2023 8:15 AM PDT Station ID: [id number]
[2023-01-19] MEDS ORDERED: FUROSEMIDE 20 MG TABLET PO STA (08:31)
[2023-01-19] MEDS ORDERED: FUROSEMIDE 20 MG/2 ML VIAL IVP STA (08:31)
--- NOTE | 2023-01-19 08:33 | CT Report ---
PROCEDURE: HEAD WO INDICATIONS: fall/head injury TECHNIQUE: Noncontrast 4.5 mm thick angled axial sections acquired from the foramen magnum to the vertex. For r adiation dose reduction, the following was used: automated exposure control, adjustment of mA and/or kV according to patient size. COMPARISON: CT head 10/29/2021. FINDINGS: Image quality: Excellent. CSF spaces: Basal cisterns are patent. No extra-axial fluid collections. Ventricles are normal in size and shape. Brain: No midline shift. No intracranial masses or hemorrhage. Age-related global volume loss. Area s of hypoattenuation within the deep and periventricular white matter, nonspecific and likely represe nting chronic microvascular ischemic change. Intracranial atherosclerotic vascular calcifications. Gr ay-white matter interface is normal. Skull and face: Calvarium and visualized facial bones are intact, without suspicious lesions. Bilat eral lens replacements. The orbits are otherwise normal in appearance. Sinuses: Mild mucosal thickening in the paranasal sinuses. The mastoids are clear. IMPRESSION: No acute intracranial pathology. Reviewed by: Roberto Feng MD on 01/19/2023 8:31 AM PDT Approved by: Roberto Feng MD on 01/19/2023 8:31 AM PDT Station ID: [id number]
[2023-01-19 09:09] VITALS: O2SAT 96
== END 2023-01-19 09:15 | disposition home or self-care (01) ==
LOC: EDUNIT# → SUPCPDRO 07:41 → ED 07:41
DX: S09.90XA Unspecified injury of head, initial encounter (principal); S00.83XA Contusion of other part of head, initial encounter; W18.30XA Fall on same level, unspecified, initial encounter; Y92.199 Unspecified place in other specified residential institution as the place of occurrence of the external cause; I51.7 Cardiomegaly; I50.9 Heart failure, unspecified; S00.33XA Contusion of nose, initial encounter; S90.31XA Contusion of right foot, initial encounter; W06.XXXA Fall from bed, initial encounter; Y92.10 Unspecified residential institution as the place of occurrence of the external cause; S00.83XD Contusion of other part of head, subsequent encounter; Z66 Do not resuscitate
CPT/HCPCS: 96374; 99283; 99284

== ENCOUNTER 2023-01-19 13:59 | Emergency (ER) | payer OTHER ==
--- NOTE | 2023-01-19 14:43 | ED Physician Documentation ---
History of Present Illness - Stated complaint Stated Complaint: GLF/HIT HEAD - Chief complaint Chief Complaint: Trauma Hd/Nk - History obtained from History obtained from: Family - Additonal information Additional information: The patient is brought back to the emergency department by her nephew with chief complaint of rolling out of bed and hitting her nose on a plastic wastebasket at the bedside. The nephew states that nursing staff was not really sure if she needed to come in or not but she did have a bruise on her nose so they decided to have her come in. She did not hit her head on the floor and actually seem to have a softer landing with her head in the wastebasket. The patient was also noted to have a bruise on the lateral aspect of her right foot/toes and they were also concerned that she may have had an injury there. The patient is severely demented and unable to offer any further information. She has a POLST stating DNR with limited interventions. Son states the patient's mentation and physical appearance is otherwise at baseline. PD PAST MEDICAL HISTORY - Past Medical History Cardiovascular: Hypertension, High cholesterol, Coronary artery disease Respiratory: None Neuro: Dementia, Other Endocrine/Autoimmune: None GI: GI bleed, Colon polyps, Diverticulitis : None HEENT: Chronic vision loss Psych: None Musculoskeletal: Osteoporosis Derm: None - Past Surgical History Past Surgical History: Yes General: Appendectomy, Bowel surgery Ortho: Arthroscopic surgery HEENT: Tonsil/Adenoidectomy - Present Medications Home Medications: Ambulatory Orders Medication Instructions Recorded Confirmed Amlodipine Besylate 5 mg PO DAILY 11/17/15 01/19/23 Calcium Carbonate [Calcium] 600 mg PO DAILY 10/02/19 01/19/23 Donepezil [Aricept] 5 mg PO QPM 10/02/19 01/19/23 Oxybutynin [Ditropan] 5 mg PO QPM 10/02/19 01/19/23 Pravastatin [Pravachol] 40 mg PO DAILY 10/02/19 01/19/23 Lisinopril [Zestril] 40 mg PO DAILY #15 tablet 10/11/19 01/19/23 Omeprazole 20 mg PO DAILY #15 capsule. 10/11/19 01/19/23 Benzocaine/Menthol [Cepacol Sore 1 each MM 02/28/22 Throat Lozenge] Ketotifen Fumarate [Eye Itch 5 ml OP BID 02/28/22 01/19/23 Relief] Latanoprost/Pf [Latanoprost 0.005% 7.5 ml OP QPM 02/28/22 02/28/22 Eye Drop] Loratadine [Claritin] 10 mg PO DAILY 02/28/22 01/19/23 traMADol [Ultram] 50 mg PO Q4-6H PRN 02/28/22 02/28/22 Acetaminophen [Tylenol] 650 mg PO Q6H PRN 01/19/23 01/19/23 Aspirin [[place] Aspirin] 81 mg PO DAILY 01/19/23 01/19/23 Furosemide [Lasix] 20 mg PO DAILY #14 tablet 01/19/23 - Allergies Allergies/Adverse Reactions: Allergies Allergy/AdvReac Type Severity Reaction Status Date / Time Sulfa (Sulfonamide AdvReac Unknown Verified 01/19/23 14:02 Antibiotics) - Social History Does the pt smoke?: No Smoking Status: Never smoker Does the pt drink ETOH?: No Does the pt have substance abuse?: No - Immunizations Immunizations are current?: Yes - POLST Patient has POLST: Yes PD ED PE NORMAL - Vitals Vital signs reviewed: Yes - General General: No acute distress, Well developed/nourished, Other - HEENT HEENT: PERRL, Dentition benign, Other (Contusion and swelling over nasal bridge worse on the left. No palpable bony deformity. Mild bloody residue in bilateral nares, no septal hematoma. No active bleeding. No facial trauma otherwise. Existing forehead contusion from earlier this morning.) - Neck Neck: Supple, no meningeal sign, No bony TTP - Cardiac Cardiac: RRR, No murmur - Respiratory Respiratory: No respiratory distress, Clear bilaterally - Abdomen Abdomen: Soft, Non tender, Non distended - Derm Derm: Warm and dry, Other (Acute appearing contusion right lateral foot around the MTP joints.) - Extremities Extremities: No deformity, Other (2+ pitting edema bilateral lower extremities.) - Neuro Neuro: Other (Awake, responds to any stimuli with whimpering.) - Psych Psych: Normal mood, Normal affect Results - Vitals Vitals: Oxygen O2 Source Room air - Rads (name of study) Nasal bone x-ray series Relevant Findings:: Final report received, See rad report (Negative) Right foot x-ray series Relevant Findings:: Final report received, See rad report (Negative) PD Medical Decision Making - ED course Complexity details: reviewed results, re-evaluated patient, considered differential, d/w family ED course: The patient was worked up with x-rays of her nasal bones and right foot. Nephew states patient is at mental and behavioral baseline. Departure - Departure Disposition: Home, Self Care Clinical Impression: Peripheral edema Nasal contusion Qualifiers: Encounter type: initial encounter Qualified Code(s): S00.33XA - Contusion of nose, initial encounter Contusion, foot Qualifiers: Encounter type: initial encounter Laterality: right Qualified Code(s): S90.31XA - Contusion of right foot, initial encounter CHF exacerbation Qualifiers: Heart failure type: unspecified Qualified Code(s): I50.9 - Heart failure, unspecified Condition: Stable Instructions: ED Contusion Foot, ED Contusion Nasal Comments: Farhana's x-rays look good. There is no evidence of any breaks in her nasal bone or in her right foot. She has sustained bruises to both. Handwritten prescriptions have been provided for both a wheelchair and for compression stockings. This should help with some of the difficulties with walking. Please continue her plans to have her follow-up with her primary doctor and security systems manager on to determine whether further long-term adjustments to her therapies are needed. She should continue to have the water pill at home, as directed, until she sees her outpatient doctors and determines a plan from there. Forms: PCP List Discharge Date/Time: 01/19/23 16:43
--- NOTE | 2023-01-19 15:51 | XRAY Report ---
PROCEDURE: Foot 3 View RT INDICATIONS: contusion/injury TECHNIQUE: 4 views of the foot were acquired. COMPARISON: None. FINDINGS: Bones: No fractures or dislocations. No suspicious bony lesions. Diffusely decreased osseous mine ralization. Degenerative changes of the interphalangeal joints, first MTP and mid foot. Soft tissues: No suspicious soft tissue calcifications or masses. IMPRESSION: No acute bony abnormality. Reviewed by: Roberto Feng MD on 01/19/2023 3:50 PM PDT Approved by: Roberto Feng MD on 01/19/2023 3:50 PM PDT Station ID: [id number]
--- NOTE | 2023-01-19 15:57 | XRAY Report ---
PROCEDURE: Nasal Bones INDICATIONS: blunt trauma/swelling/contusion TECHNIQUE: 4 views of the nasal bones acquired. COMPARISON: CT head 02-09. FINDINGS: Bones: No displaced facial fractures are seen. Nasal septum is midline. Soft tissues: No suspicious soft tissue calcifications. IMPRESSION: No displaced facial fractures are seen. Reviewed by: Roberto Feng MD on 01/19/2023 3:55 PM PDT Approved by: Roberto Feng MD on 01/19/2023 3:55 PM PDT Station ID: [id number]
[2023-01-19 16:44] VITALS: BP 126/70; O2SAT 95
== END 2023-01-19 16:43 | disposition home or self-care (01) ==
LOC: ED 13:59
DX: S00.33XA Contusion of nose, initial encounter (principal); S90.31XA Contusion of right foot, initial encounter; W06.XXXA Fall from bed, initial encounter; Y92.10 Unspecified residential institution as the place of occurrence of the external cause; S00.83XD Contusion of other part of head, subsequent encounter; X58.XXXD Exposure to other specified factors, subsequent encounter; I50.9 Heart failure, unspecified; Z66 Do not resuscitate
CPT/HCPCS: 99283; 99284

== ENCOUNTER 2023-01-23 12:41 | Emergency (ER) | payer OTHER ==
[2023-01-23] MEDS ORDERED: ACETAMINOPHEN 500 MG TABLET PO STA (14:41)
--- NOTE | 2023-01-23 14:43 | ED Physician Documentation ---
PD HPI HEAD INJURY - Stated complaint Stated Complaint: GLF/LUMP ON HEAD - Chief complaint Chief Complaint: Trauma Hd/Nk - History obtained from History obtained from: Patient, Family (nephew) - Additional information Additional information: 87yo f with hx dementia, PPM, afib on ASA (eliquis prescribed yesterday but not started pending d/w PCP d/t frequent falls). Hx from nephew d/t dementia. Frequent falls lately, one today, hit face, c/o L shoulder pain. Mechanism is unclear, w/o clear LOC. PD PAST MEDICAL HISTORY - Past Medical History Cardiovascular: Hypertension, High cholesterol, Coronary artery disease Respiratory: None Neuro: Dementia, Other Endocrine/Autoimmune: None GI: GI bleed, Colon polyps, Diverticulitis : None HEENT: Chronic vision loss Psych: None Musculoskeletal: Osteoporosis Derm: None - Past Surgical History Past Surgical History: Yes General: Appendectomy, Bowel surgery Ortho: Arthroscopic surgery HEENT: Tonsil/Adenoidectomy - Present Medications Home Medications: Ambulatory Orders Medication Instructions Recorded Confirmed Amlodipine Besylate 5 mg PO DAILY 11/17/15 01/19/23 Calcium Carbonate [Calcium] 600 mg PO DAILY 10/02/19 01/19/23 Donepezil [Aricept] 5 mg PO QPM 10/02/19 01/19/23 Oxybutynin [Ditropan] 5 mg PO QPM 10/02/19 01/19/23 Pravastatin [Pravachol] 40 mg PO DAILY 10/02/19 01/19/23 Lisinopril [Zestril] 40 mg PO DAILY #15 tablet 10/11/19 01/19/23 Omeprazole 20 mg PO DAILY #15 capsule. 10/11/19 01/19/23 Benzocaine/Menthol [Cepacol Sore 1 each MM 02/28/22 Throat Lozenge] Ketotifen Fumarate [Eye Itch 5 ml OP BID 02/28/22 01/19/23 Relief] Latanoprost/Pf [Latanoprost 0.005% 7.5 ml OP QPM 02/28/22 02/28/22 Eye Drop] Loratadine [Claritin] 10 mg PO DAILY 02/28/22 01/19/23 traMADol [Ultram] 50 mg PO Q4-6H PRN 02/28/22 02/28/22 Acetaminophen [Tylenol] 650 mg PO Q6H PRN 01/19/23 01/19/23 Aspirin [[place] Aspirin] 81 mg PO DAILY 01/19/23 01/19/23 Furosemide [Lasix] 20 mg PO DAILY #14 tablet 01/19/23 - Allergies Allergies/Adverse Reactions: Allergies Allergy/AdvReac Type Severity Reaction Status Date / Time Sulfa (Sulfonamide AdvReac Unknown Verified 01/23/23 12:51 Antibiotics) - Social History Does the pt smoke?: No Smoking Status: Never smoker Does the pt drink ETOH?: No Does the pt have substance abuse?: No - Immunizations Immunizations are current?: Yes - POLST Patient has POLST: Yes PD ED PE NORMAL - Vitals Vital signs reviewed: Yes - General General: No acute distress, Well developed/nourished, Other (dementia, a/ox1) - HEENT HEENT: PERRL, EOMI, Other (various facial bruises, no deformity or ttp to facial bones) - Neck Neck: Supple, no meningeal sign, No bony TTP - Back Back: No spinal TTP - Extremities Extremities: Other (bruised tender over L shoulder, L knee bruise without Limited rom or ttp) - Neuro Eye Opening: Spontaneous Motor: Obeys Commands Verbal: Confused GCS Score: 14 Results - Vitals Vitals: Vital Signs - 24 hr 01/23/23 01/23/23 12:51 15:22 Temperature 36.5 C 36.2 C L Heart Rate 70 73 Respiratory 16 20 Rate Blood Pressure 140/85 H 148/79 H O2 Saturation 96 93 Oxygen O2 Source Room air - Rads (name of study) Three-view x-ray of the left shoulder, radiologist read as negative, I see a midshaft clavicular fracture Relevant Findings:: Final report received, EMP independent interpretation of test PD Medical Decision Making - ED course ED course: 87 yo with likely mech fall today. Poss head inj, L shoulder pain. D/w nephew goc and would not act on positive head/neck CT so he declined these. X-ray to my eyes shows a midshaft clavicular fracture, read as negative by radiology though. We will treat as such with sling and conservative measures. Departure - Departure Disposition: 01 Home, Self Care Clinical Impression: Closed left clavicular fracture Condition: Good Record reviewed to determine appropriate education?: Yes Instructions: ED Fx Clavicle Comments: She can use the sling for comfort, but ok if non-compliant or better off using her walker with walking. She can take tylenol 650mg every 6 hours for pain. Return if worse or for new symptoms. Forms: PCP List Discharge Date/Time: 01/23/23 15:30
--- NOTE | 2023-01-23 15:07 | XRAY Report ---
PROCEDURE: Shoulder 3 View LT INDICATIONS: shoulder inj TECHNIQUE: 4 views of the shoulder were acquired. COMPARISON: None. FINDINGS: Bones: No fractures or dislocations. No suspicious bony lesions. Visualized ribs appear intact. Soft tissues: No suspicious soft tissue calcifications. The visualized lungs are within normal limi ts. Mild appearance of increased pulmonary vascularity within the right lung. IMPRESSION: No visualized acute fracture or dislocation. However, occult injury cannot be excluded. Recommend kar rt interval imaging follow-up in 7-10 days as clinically indicated for additional evaluation. Reviewed by: Sabra Ho MD on 01/23/2023 3:06 PM PDT Approved by: Sabra Ho MD on 01/23/2023 3:06 PM PDT Station ID: [id number]
[2023-01-23 15:30] VITALS: BP 148/79; O2SAT 93
== END 2023-01-23 15:30 | disposition home or self-care (01) ==
LOC: ED 12:41
DX: S42.002A Fracture of unspecified part of left clavicle, initial encounter for closed fracture (principal); W19.XXXA Unspecified fall, initial encounter
CPT/HCPCS: 73030; 99283; A9270

== ENCOUNTER 2023-05-01 09:54 | Outpatient (CLI) | payer OTHER | END 2023-05-01 09:55 | disposition E | LOC: EMS 09:54 ==